=== PATIENT | male | born 1940 | race Caucasian/White ===

== ENCOUNTER 2016-12-02 16:57 | Inpatient (IN) | payer MEDICARE ==
[~2016-12-02] VITALS: Ht 177.8 cm; Wt 94.6 kg
[2016-12-02] MEDS ORDERED: KETOROLAC 30 MG/ML VIAL (J1885) As Ordered ONE (18:26)
[2016-12-02] MEDS ORDERED: ONDANSETRON 4MG/2ML VIAL (J2405) As Ordered ONE (18:26)
[2016-12-02 19:17] LABS: DIGOXIN LEVEL 0.2 NG/ML (0.5-2.0)
[2016-12-02] MEDS ORDERED: NORCO, ANEXSIA 5/325MG TABLET (HYDROcodone/ACETAMINOPHEN) PO PRN (21:30)
[2016-12-02] MEDS ORDERED: ACETAMINOPHEN TAB 650MG DOSE (2X325MG) PO PRN (21:30)
[2016-12-02] MEDS ORDERED: MORPHINE 4 MG/ML 1ML SYRINGE IV PRN ×2 (21:30→23:30)
[2016-12-02] MEDS ORDERED: FINA5TAB2 PO (22:17)
[2016-12-02] MEDS ORDERED: FERR325T PO (22:17)
[2016-12-02] MEDS ORDERED: ASPI325T PO (22:17)
[2016-12-02] MEDS ORDERED: FURO40TA2 PO (22:17)
[2016-12-02] MEDS ORDERED: DIGO0.12 PO (22:17)
[2016-12-02] MEDS ORDERED: VITA100066 PO (22:17)
[2016-12-02] MEDS ORDERED: FOLI1TAB2 PO (22:17)
[2016-12-02] MEDS ORDERED: VITA500T3 PO (22:17)
[2016-12-02] MEDS ORDERED: LOSA100T36 PO (22:17)
[2016-12-02] MEDS ORDERED: ATEN50TA2 PO (22:17)
--- NOTE | 2016-12-02 22:33 | EDDOCDS ---
Nurse's Notes [facility] Name: Teofilo Thorpe Age: 76 yrs Sex: Male : 1940 Arrival Date: 12/02/2016 Time: 16:57 Bed I3 / M3 Private MD: Andrés [facility] Diagnosis: Rectal abscess;Fever, unspecified;Abdominal and pelvic pain Presentation: 12/02 17:06 Presenting complaint: Patient states: diarrhea, vomiting, nausea and abdominal pain on rs3 and off for 2 weeks. Was seen at urgent care today. has high WBC. Sent here for further work up. Adult Sepsis Screening: The patient does not have new or worsening altered mentation. Patient's respiratory rate is less than 22. Systolic blood pressure is greater than 100. Patient has a qSOFA score of 0- Negative Sepsis Screen. Suicide/Homicide risk assessment- the patient denies having any suicidal and/or homicidal ideations and does not present with any other emotional, behavioral or mental health complaints. Status: Patient is not a family service worker or dependent. Transition of care: patient was not received from another setting of care. 17:06 Acuity: ROM Level 3 rs3 17:06 Method Of Arrival: Walkin/Carried/Asstd rs3 Triage Assessment: 17:10 General: Appears in no apparent distress. Pain: Location: abdomen. GI: Reports rs3 diarrhea, lower abdominal pain, upper abdominal pain, nausea, vomiting. Historical: - Allergies: no known allergies; - Home Meds: 1. atenolol 50 mg Oral tab 1 tab once daily 2. digoxin 125 mcg Oral tab 1 tab once daily 3. finasteride 5 mg oral tab 1 tab once daily 4. furosemide 40 mg Oral tab 1 tab once daily 5. losartan 100 mg oral tab 1 tab once daily - PMHx: Hypertension; congestive heart failure; - PSHx: bypass; Hernia repair; Cholecystectomy; - Social history: Smoking status: Patient states former smoker of tobacco. No barriers to communication noted, The patient speaks fluent Romanian. - Family history: Not pertinent. - : The pt / caregiver states he / she is not on anticoagulants. Home medication list is obtained from the patient. - Exposure Risk Screening:: None identified. Screenin:38 Screening information is obtained from the patient. Fall risk: No risks identified. kr3 Assistance ADL's: requires no assistance with activities of daily living. Abuse/DV Screen: The patient / caregiver reports he/she is: not in a situation that causes fear, pain or injury. Nutritional screening: No deficits noted. Advance Directives: Currently, there is no health care proxy. home support is adequate. Assessment: 18:37 General: Appears in no apparent distress, comfortable, Behavior is appropriate for age, kr3 cooperative. Neurological: No deficits noted. Respiratory: Respiratory effort is even, unlabored. GI: Abdomen is obese, Bowel sounds present X 4 quads. Abd is soft X 4 quads Abd is tender to palpation in left upper quadrant. Derm: Skin is normal. 19:40 General: Appears comfortable, Behavior is sleeping on stretcher with family at bedside. lf1 Respiratory: Respiratory effort is even, unlabored. GI: Abdomen is obese, Reports. GI: Bowel sounds present X 4 quads. Derm: Skin is normal. 21:58 Adult Sepsis Screening: The patient does not have new or worsening altered mentation. lf1 Patient's respiratory rate is less than 22. Systolic blood pressure is greater than 100. Patient has a qSOFA score of 0- Negative Sepsis Screen. General: Appears uncomfortable, Behavior is cooperative. Pain: Location: abdomen Pain currently is 6 out of 10 on a pain scale. Neurological: Level of Consciousness is awake, alert, Oriented to person, place, time. EENT: No deficits noted. Cardiovascular: Chest pain is denied. Respiratory: Respiratory effort is even, unlabored. GI: Abdomen is obese, Reports tolerance of food. Derm: Skin is normal. 22:26 General: Pt sitting comfortably in bed. No apparent distress. Pt ate part of a boxed ld5 lunch. Tolerated well. Will continue to monitor. Vital Signs: 16:59 BP 156 / 79; Pulse 111; Resp 18; Temp 98.7(O); Pulse Ox 96% ; Weight 104.33 kg (R); ct3 Height 5 ft. 10 in. (177.80 cm) (R); Pain 6/10; 19:29 BP 141 / 83; Pulse 97; Resp 18; Temp 96.9; Pulse Ox 97% ; Pain 8/10; ajs 21:58 BP 119 / 58 LA Supine; Pulse 91; Resp 18; Temp 98.0(O); Pulse Ox 96% on R/A; Pain 6/10; lf1 16:59 Body Mass Index 33.00 (104.33 kg, 177.80 cm) ct3 Vitals: 16:59 Log In Time: December 02, 2016 at 16:57. ct3 ED Course: 16:58 Patient visited by Christianne Trinidad PCA. ct3 16:58 Patient moved to Waiting ct3 16:59 [facility] is Private Physician. ct3 17:00 Patient moved to Pre RCE ct3 17:08 Triage Initiated rs3 17:25 Patient moved to Triage 3 ck1 17:34 Patient visited by Maria Guadalupe Jane PCA. jb5 17:51 Osmin Lindsay FNP is PHCP. ke 17:51 Patient visited by Osmin Lindsay FNP. ke 17:51 Patient visited by Osmin Lindsay FNP. ke 18:11 Patient moved to I3 / M3 jb5 18:22 Patient visited by Osmin Lindsay FNP. ke 18:26 Digoxin Level Sent. mlb1 18:26 Amylase Sent. mlb1 18:26 Lipase Sent. mlb1 18:27 Inserted saline lock: 20 gauge in left antecubital area and blood collected. The mlb1 patient tolerated the procedure well. Labs drawn. (by ED staff). Sent per order to lab. 18:38 The patient / caregiver is instructed regarding the plan of care and ED course. Patient luis has correct armband on for positive identification. Placed in gown. Bed in low position. Call light in reach. Side rails up X 1. 18:52 Patient visited by Osmin Lindsay FNP. ke 19:18 [facility] Payment Agreement was scanned into [employer] and attached to record. zo 19:23 Patient visited by Osmin Lindsay FNP. ke 19:29 Patient visited by Flaca Zuniga. ajs 19:40 IV solution is infusing as ordered. lf1 19:42 Patient visited by Nerissa Fulton RN. lf1 20:21 Patient visited by Osmin Lindsay FNP. ke 21:02 Patient visited by Osmin Lindsay FNP. ke 21:38 Patient visited by Osmin Lindsay FNP. ke 21:38 Tavares eDvlin MD is Hospitalizing Provider. ke 21:58 IV. lf1 22:27 No procedures done that require assistance. ld5 22:29 Patient visited by Bozena Reid RN. ld5 Administered Medications: 18:29 Drug: NS 0.9% 1000 ml [sodium chloride 0.9 % intravenous solution] Route: IV; Rate: kr3 bolus; Site: left antecubital; 22:32 Follow up: IV Status: Completed infusion; IV Intake: 1000ml ld5 18:29 Drug: Ondansetron 4 mg [ondansetron HCl 2 mg/mL intravenous solution (2 mL)] Route: kr3 IVP; Site: left antecubital; 18:31 Drug: ketorolac 30 mg [ketorolac 30 mg/mL (1 mL) injection solution (1 mL)] Route: IVP; kr3 Site: left antecubital; 22:32 Follow up: Response: Pain is decreased ld5 Intake: 21:58 PO: 240.00ml (Water); Total: 240.00ml. lf1 22:32 IV: 1000.00ml; Total: 1240.00ml. ld5 Order Results: Lab Order: Amylase; [facility] 12/02/16 18:12 Test: AMYLASE; Value: 123; Range: 25-115; Abnormal: Above high normal; Units: U/L; Status: F Lab Order: Lipase; [facility] 12/02/16 18:12 Test: LIPASE; Value: 240; Range: 73-393; Units: U/L; Status: F Lab Order: Urinalysis; [facility] 12/02/16 18:10 Test: APPEARANCE, URINE; Value: HAZY; Range: CLEAR; Status: F Test: COLOR, URINE; Value: YELLOW; Range: YELLOW; Status: F Test: PH,URINE; Value: 5.0; Range: 5.0-9.0; Units: UNITS; Status: F Test: SPECIFIC GRAVITY URINE AUTO; Value: 1.021; Range: 1.002-1.035; Status: F Test: PROTEIN, URINE AUTO; Value: 1+; Range: NEGATIVE; Abnormal: Above high normal; Units: mg/dL; Status: F Test: GLUCOSE, URINE (UA) AUTO; Value: NEGATIVE; Range: NEGATIVE; Units: mg/dL; Status: F Test: KETONE, URINE AUTO; Value: 1+; Range: NEGATIVE; Abnormal: Above high normal; Units: mg/dL; Status: F Test: UROBILINOGEN, URINE AUTO; Value: 0.2; Range: 0.0-2.0; Units: mg/dL; Status: F Test: BILIRUBIN, URINE AUTO; Value: NEGATIVE; Range: NEGATIVE; Status: F Test: NITRITE, URINE AUTO; Value: NEGATIVE; Range: NEGATIVE; Status: F Test: LEUKOCYTE ESTERASE, URINE AUTO; Value: NEGATIVE; Range: NEGATIVE; Status: F Test: BLOOD, URINE BLOOD; Value: NEGATIVE; Range: NEGATIVE; Status: F Test: WBC, URINE AUTO; Value: 5; Range: 0-3; Abnormal: Above high normal; Units: /HPF; Status: F Test: RBC, URINE AUTO; Value: 3; Range: 0-3; Units: /HPF; Status: F Test: BACTERIA, URINE AUTO; Value: NEGATIVE; Range: NEGATIVE; Status: F Test: SQUAMOUS EPITHELIAL CELL UR AU; Value: 0; Range: 0-6; Units: /HPF; Status: F Test: MUCUS, URINE; Value: SMALL; Range: NEGATIVE; Status: F Test: HYALINE CAST, URINE AUTO; Value: 2; Range: 0-1; Units: /LPF; Status: F Lab Order: Digoxin Level; SPEC'M 12/02/16 18:12 Test: DIGOXIN LEVEL; Value: 0.2; Range: 0.5-2.0; Abnormal: Below low normal; Units: NG/ML; Status: F Outcome: 21:41 Decision to Hospitalize by Provider. ke 22:27 Discharge Assessment: Patient awake, alert and oriented x 3. No cognitive and/or ld5 functional deficits noted. Patient verbalized understanding of disposition instructions. patient administered narcotics - no. The following High Risk Discharge criteria are identified: None. Admitted to Med/Surg accompanied by tech, family with patient, via stretcher, with chart. Condition: stable. CT Study completed. Property :Personal belongings accompany Pt. 22:32 Patient left the ED. ld5 Signatures: Osmin Lindsay, EMERGENCY DISPATCHER EMERGENCY DISPATCHER David Medellin RN RN mlb1 Sunshine PatricioRN RN ck1 Raias Ellis,RN RN kr3 Maria Guadalupe Jane, MEDICINE AND HEALTH SERVICE MANAGER MEDICINE AND HEALTH SERVICE MANAGER jb5 Cielo Waterman Lisa,RN RN lf1 Ama Bateman RN RN rs3 Bozena Reid RN RN ld5 Christianne Trinidad, MEDICINE AND HEALTH SERVICE MANAGER MEDICINE AND HEALTH SERVICE MANAGER ct3 Flaca Zuniga Corrections: (The following items were deleted from the chart) 22:29 22:26 General: [id number] ld5 MTDD
--- NOTE | 2016-12-02 22:33 | EDDOCDS ---
Physician Documentation [facility] Name: Teofilo Thorpe Age: 76 yrs Sex: Male : 1940 Arrival Date: 12/02/2016 Time: 16:57 Bed I3 / M3 Private MD: Andrés [facility] Disposition: 12/02/16 21:41 Hospitalization ordered by Tavares Devlin for Inpatient Admission. Preliminary diagnosis are Rectal abscess, Fever, unspecified, Abdominal and pelvic pain. - Bed requested for [facility] ([facility]). - Status is Inpatient Admission. ld5 - Condition is Stable. - Problem is an ongoing problem. - Symptoms are unchanged. Historical: - Allergies: no known allergies; - Home Meds: 1. atenolol 50 mg Oral tab 1 tab once daily 2. digoxin 125 mcg Oral tab 1 tab once daily 3. finasteride 5 mg oral tab 1 tab once daily 4. furosemide 40 mg Oral tab 1 tab once daily 5. losartan 100 mg oral tab 1 tab once daily - PMHx: Hypertension; congestive heart failure; - PSHx: bypass; Hernia repair; Cholecystectomy; - Social history: Smoking status: Patient states former smoker of tobacco. No barriers to communication noted, The patient speaks fluent Chinese. - Family history: Not pertinent. - : The pt / caregiver states he / she is not on anticoagulants. Home medication list is obtained from the patient. - Exposure Risk Screening:: None identified. Vital Signs: 12/02 16:59 BP 156 / 79; Pulse 111; Resp 18; Temp 98.7(O); Pulse Ox 96% ; Weight 104.33 kg / 230.01 ct3 lbs (R); Height 5 ft. 10 in. (177.80 cm) (R); Pain 6/10; 19:29 BP 141 / 83; Pulse 97; Resp 18; Temp 96.9; Pulse Ox 97% ; Pain 8/10; ajs 21:58 BP 119 / 58 LA Supine; Pulse 91; Resp 18; Temp 98.0(O); Pulse Ox 96% on R/A; Pain 6/10; lf1 16:59 Body Mass Index 33.00 (104.33 kg, 177.80 cm) ct3 MDM: 18:07 NS 0.9% 1000 ml IV at bolus once ordered. ke 18:07 Ondansetron 4 mg IVP once ordered. ke 18:07 ketorolac 30 mg IVP once ordered. ke 18:07 IV Saline Lock ordered. ke 18:07 Undress patient appropriately for examination ordered. ke 18:08 Amylase Ordered. EDMS 18:08 Lipase Ordered. EDMS 18:08 Urinalysis Ordered. EDMS 18:08 Digoxin Level Ordered. EDMS 18:08 Urine Culture Ordered. EDMS 18:08 CT ABD & PELVIS: No Contrast Ordered. EDMS 18:08 NOTHING BY MOUTH+DIET ordered. EDMS 18:55 Financial registration complete. zo 19:04 Urinalysis Reviewed. ke 19:18 [facility] Payment Agreement was scanned into [employer] and attached to record. zo 21:27 Admission / Observation Status ordered. EDMS 21:27 REGULAR DIET ordered. EDMS 21:29 ABCESS DRAIN (NEEDLE PLACE) US Ordered. EDMS 21:29 ABCESS DRAIN (NEEDLE PLACE) US Ordered. EDMS 21:53 BED REQUEST+ADM ordered. EDMS 22:03 CALPROTECTIN STOOL Ordered. EDMS 22:05 GASTROINTESTINAL (GI) PANEL Ordered. EDMS Administered Medications: 18:29 Drug: NS 0.9% 1000 ml [sodium chloride 0.9 % intravenous solution] Route: IV; Rate: kr3 bolus; Site: left antecubital; 22:32 Follow up: IV Status: Completed infusion; IV Intake: 1000ml ld5 18:29 Drug: Ondansetron 4 mg [ondansetron HCl 2 mg/mL intravenous solution (2 mL)] Route: kr3 IVP; Site: left antecubital; 18:31 Drug: ketorolac 30 mg [ketorolac 30 mg/mL (1 mL) injection solution (1 mL)] Route: IVP; kr3 Site: left antecubital; 22:32 Follow up: Response: Pain is decreased ld5 Signatures: Dispatcher [employer] EDMS Farnaz Espitia RN RN Osmin Vitale, DRY HEAT ROOM ATTENDANT DRY HEAT ROOM ATTENDANT Cielo Dhillon RosemaryRN RN rs3 Bozena Reid RN RN ld5 Raisa Ellis RN kr3 The chart was reviewed and I authenticate all verbal orders and agree with the evaluation and treatment provided.Corrections: (The following items were deleted from the chart) 22:05 22:03 GASTROINTESTINAL (GI) PANEL ordered. EDMS EDMS Attachments: 19:18 [facility] Payment Agreement zo MTDD
[2016-12-02 22:38] VITALS: BP 138/74
[2016-12-02] MEDS ORDERED: LOSARTAN 50 MG TAB PO ONE (23:03)
[2016-12-02] MEDS ORDERED: ATENOLOL 50 MG TAB PO ONE (23:03)
[2016-12-02] MEDS ORDERED: FUROSEMIDE 40 MG TAB PO ONE (23:03)
[2016-12-02] MEDS: PIPERACILLIN/TAZOBACTAM SOD 3.375 GM in D5W MINI-BAG PLUS 50 ML IV SCH (23:28)
[2016-12-02] MEDS: LR 1,000 ML IV SCH (23:28)
[2016-12-02] MEDS ORDERED: MORPHINE 2 MG/ML 1ML SYRINGE IV PRN (23:30)
[2016-12-03 06:00] VITALS: BP 147/85
[2016-12-03] MEDS: LR 1,000 ML IV SCH ×3 (06:08→20:02)
[2016-12-03] MEDS: PIPERACILLIN/TAZOBACTAM SOD 3.375 GM in D5W MINI-BAG PLUS 50 ML IV SCH ×4 (06:08→23:44)
--- NOTE | 2016-12-03 07:37 | HPE ---
DATE OF ADMISSION: 12/02/2016 CHIEF COMPLAINT: Diarrhea, nausea and vomiting. HISTORY OF PRESENT ILLNESS: Mr. Thorpe is a 76-year-old gentleman who complains of a 2-week history of watery, nonbloody diarrhea anywhere from 6-10 times a day for the past 2 weeks. No antecedent causes that the patient could tell. This started all of a sudden and has persisted for the past 2 weeks. Early on was also having some nausea or vomiting. Does not really notice any high-grade fever or chills. This kind of resolved over the course of the week but returned last night prompting him to be concerned. Thus, he presented to the Urgent Care. Today, labs were drawn. He was noted to have a white cell count of 18,000. Thus, he was sent to the emergency room for further evaluation. The emergency room did a noncontrast CT, which shows possibility of perirectal abscess. Thus, I was called in to evaluate the patient. 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 He does report episodes of diarrhea, mostly watery. He has chronic iron deficiency anemia, but never had episodes of nausea or vomiting. He denies any ongoing weight loss. Last colonoscopy was back in 2010. No significant history for inflammatory bowel disease. No sick contacts. No recent overseas travel. ALLERGIES: NO KNOWN DRUG ALLERGIES. HOME MEDICATIONS: - atenolol 50 mg once daily - digoxin 125 mcg once daily - finasteride 5 mg once daily - furosemide 40 mg once daily - losartan 100 mg once daily PAST MEDICAL HISTORY: 1. Hypertension. 2. Congestive heart failure. 3. History of myocardial infarction ([place]). 4. Benign prostatic hyperplasia. PAST SURGICAL HISTORY: 1. Cardiac bypass. 2. Hernia repair. 3. Cholecystectomy. SOCIAL HISTORY: Patient is a former smoker. Denies ongoing smoking. Minimal and occasional alcohol intake. No recreational drug use. Exposure risk screening none identified. REVIEW OF SYSTEMS: As mentioned, has ongoing symptoms for the past week. No fevers or chills reported. No ongoing weight loss. Reports some associated nausea. Denies any ongoing chest pains. Denies shortness of breath. Suspected to have sleep apnea. No further testing noted. Snores loud. Gastrointestinal symptoms enumerated in the history of present illness (HPI). Has some urinary dribbling. Denies dysuria, hematuria, nocturia. Patient denies any polydipsia, polyphagia or polyuria. Denies diabetes. Denies thyroid problems. Denies any bleeding or clotting disorder. Denies any severe psychiatric impairment. PHYSICAL EXAMINATION: On arrival to the emergency department (ED), vitals shows blood pressure of 156/79, pulse rate of 111, respiratory rate of 18, temperature of 98.7, pulse oximetry 96% on room air. Weight of 104 kg, height of 177 cm, body mass index (BMI) of 33. Pain as 6/10 on arrival. Patient is seen laying in bed, appears fairly comfortable. No acute distress. He is pleasant and cooperative. Daughter is at the bedside with him. Skin is warm, dry. Normocephalic, atraumatic. Mildly pale palpebral conjunctivae. Anicteric sclerae. Lips appear dry. Neck is short but supple. No thyromegaly. No chest wall abnormalities. Lungs sounds are clear to auscultation bilaterally. No wheezing appreciated. Heart rate and rhythm are regular with no murmurs. Abdomen is moderately obese, round, but soft, nondistended, nontender on palpation. Rectal examination shows no gross induration, swelling, minimal tenderness left posterior area but no fluctuance induration noted externally. Digital rectal exam, very minimal tenderness over that side. No fullness appreciated. LABORATORY DATA: White cell count drawn earlier, white count of 18.9 thousand, hemoglobin 14, hematocrit 43.7, platelet count 301. Neutrophils are 88%. Chemistry: Sodium 145, potassium 3.5, chloride is 107, CO2 of 26, BUN of 9, creatinine is 1.04, glucose of 138, calcium of 8.3, alkaline phosphatase 213, amylase 123, lipase 240. Urinalysis: Fairly normal, urine WBC of 5, urine RBC of 3. Digoxin level 0.2. Chest x-ray done, nonspecific bowel gas of abdominal x-ray, cannot exclude acute on chronic infrahilar opacities. CT of the abdomen and pelvis was done. This was unfortunately noncontrast. No official read at this time. This was communicated to the physician diet assistant (PA) in the emergency department of possible 4.5 cm left perirectal abscess, some chronic appearing kidney stranding bilaterally. IMPRESSION: 1. Diarrhea. Patient reports history with insensitivity or celiac sprue, possibly just some exacerbation of this though. Nausea and vomiting is not completely explained by this. 2. Findings of deep perirectal abscess, possibly supralevator abscess. On my examination could not feel the area of the fluctuance. We will get radiology to do a percutaneous drainage of this. Most likely will be done transgluteal. I explained to the patient the procedure. We will also get gastrointestinal (GI) panel to look for any possible infection. Patient does not look septic despite the high white count. No fevers. No dyspnea, tachypnea noted. We will start him on Zosyn for empiric therapy of the abscess. For now, if he improves, probably this is just from the abscess. Otherwise, may need further workup.
[2016-12-03 08:00] VITALS: BP 101/64
--- NOTE | 2016-12-03 08:20 | REP ---
Clinical: Abdominal pain. Comparison: None. Findings: Lung bases demonstrate minimal chronic changes. Splenomegaly cannot be excluded. Liver, pancreas, and bilateral adrenal glands are normal for noncontrast examination. Kidneys demonstrate moderate perinephric stranding along with bilateral cysts - the largest of which is noted in the upper pole left kidney measuring approximately 8 cm diameter. No hydroureteronephrosis, intrarenal or obstructing ureteral calculi are identified. The enteric system is without obstruction or acute inflammatory process and a normal terminal ileum and appendix are identified in the right lower quadrant. Scattered colonic and sigmoid diverticulosis noted without acute diverticulitis. Pelvis demonstrates normal bladder and age appropriate prostate/seminal vesicles. There is a 4.6 cm left perirectal soft tissue lesion with subtle adjacent inflammatory fat stranding (images 145 - 165). Lesion may reflect mass versus infection and clinical correlation is recommended. No pelvic fluid or ascites. No intraperitoneal or retroperitoneal adenopathy. No free air. Atherosclerotic changes of the aorta and branch vessels noted without aneurysm. Surrounding musculoskeletal structures demonstrate degenerative changes without focal osseous abnormality. Impression: 1. Perinephric stranding and bilateral renal cysts. Correlation with urinalysis is recommended to exclude pyelonephritis. 2. 4.6 cm left perirectal soft tissue lesion as described above. Differential diagnosis includes solid mass versus infectious process. Signed by Marshall Hatch MD 12/03/2016 08:11 A
[2016-12-03] MEDS ORDERED: ONDANSETRON 4MG/2ML VIAL (J2405) As Ordered ONE (09:39)
[2016-12-03] MEDS: ONDANSETRON 4MG/2ML VIAL (J2405) IV PRN ×2 (09:42→22:31)
[2016-12-03] MEDS: DIGOXIN 0.125 MG TAB PO SCH (09:43)
[2016-12-03] MEDS: FINASTERIDE 5 MG TAB PO SCH (09:43)
[2016-12-03] MEDS: NORCO, ANEXSIA 5/325MG TABLET (HYDROcodone/ACETAMINOPHEN) PO PRN ×2 (10:39→20:01)
[2016-12-03] MEDS ORDERED: LIDOCAINE 1% MDV 20ML VIAL As Ordered ONE (12:14)
[2016-12-03 14:00] VITALS: BP 93/64
[2016-12-03 15:20] VITALS: BP 135/72
--- NOTE | 2016-12-03 18:26 | REP ---
ULTRASOUND GUIDED ABSCESS DRAINAGE: The patient was referred for ultrasound guided drainage of left perirectal abscess. Informed consent was obtained. Under sterile conditions and after satisfactory administration of local anesthesia, using ultrasound guidance, an #8-Sammarinese pigtail drainage catheter is placed into the abscess. A total of 42 mL of brown pus was aspirated. Pigtail was formed and the catheter was sutured at the skin entrance site and dressing applied. Fluid was sent for gram stain and culture. There were no immediate complications. Signed by Simone Styles MD 12/03/2016 06:33 P
[2016-12-03 22:00] VITALS: BP 125/65
[2016-12-04] MEDS: LR 1,000 ML IV SCH ×3 (05:13→21:34)
[2016-12-04] MEDS: PIPERACILLIN/TAZOBACTAM SOD 3.375 GM in D5W MINI-BAG PLUS 50 ML IV SCH ×4 (05:13→23:36)
[2016-12-04 06:00] VITALS: BP 118/68
[2016-12-04 06:06] LABS: BASO % 0.2 % (0.0-1.0); EOS # 0.1 K/mm3 (0.0-0.50); EOS % 0.9 % (0.0-3.0); LARGE UNSTAINED CELL # 0.2 K/mm3 (0.0-0.4); LARGE UNSTAINED CELL % 1.9 % (0.0-4.0); LYMPH # 0.8 K/mm3 (1.5-4.5); LYMPH % 5.9 % (24.0-44.0); MEAN CORPUSCULAR HEMOGLOBIN 26.1 pg (27.0-33.0); MEAN CORPUSCULAR HGB CONC 32.6 g/dl (32.0-36.5); MEAN CORPUSCULAR VOLUME 80.1 fl (80.0-96.0); MONO # 0.7 K/mm3 (0.0-0.8); MONO % 6.7 % (0.0-5.0); NEUTROPHILS # 8.9 K/mm3 (1.8-7.7); NEUTROPHILS % 84.4 % (36.0-66.0); PLATELET COUNT, AUTOMATED 330 k/mm3 (150-450); RED CELL DISTRIBUTION WIDTH 13.7 % (11.5-14.5); WHITE BLOOD COUNT 10.6 K/mm3 (4.0-10.0)
[2016-12-04 06:14] LABS: CALCIUM LEVEL 7.2 MG/DL (8.8-10.2); CARBON DIOXIDE LEVEL 25 MEQ/L (21-32); CHLORIDE LEVEL 111 MEQ/L (98-107); CREATININE FOR GFR 1.01 MG/DL (0.70-1.30); GLOMERULAR FILTRATION RATE > 60.0 (>42); GLUCOSE, FASTING 121 MG/DL (83-110)
[2016-12-04 06:20] LABS: ANION GAP 11 MEQ/L (8-16); BLOOD UREA NITROGEN 52 MG/DL (7-18); POTASSIUM SERUM 2.9 MEQ/L (3.5-5.1); SODIUM LEVEL 147 MEQ/L (136-145)
[2016-12-04] MEDS ORDERED: POTASSIUM CHLORIDE 10 MEQ SR TABLET PO ONE ×2 (06:30→12:00)
[2016-12-04] MEDS: ONDANSETRON 4MG/2ML VIAL (J2405) IV PRN ×2 (09:22→17:03)
[2016-12-04] MEDS: FINASTERIDE 5 MG TAB PO SCH (09:24)
[2016-12-04] MEDS: DIGOXIN 0.125 MG TAB PO SCH (09:24)
[2016-12-04 14:00] VITALS: BP 173/78
[2016-12-04] MEDS ORDERED: LOPERAMIDE 2 MG CAP PO PRN (16:30)
[2016-12-04] MEDS ORDERED: LOPERAMIDE 2 MG CAP PO ONE (16:30)
[2016-12-04 22:00] VITALS: BP 118/67
--- NOTE | 2016-12-04 23:33 | EDDOCDS ---
Physician Documentation [facility] Name: Teofilo Thorpe Age: 76 yrs Sex: Male : 1940 Arrival Date: 12/02/2016 Time: 16:57 Bed I3 / M3 Private MD: Andrés [facility] Disposition: 12/02/16 21:41 Hospitalization ordered by Tavares Devlin for Inpatient Admission. Preliminary diagnosis are Rectal abscess, Fever, unspecified, Abdominal and pelvic pain. - Bed requested for 4 [facility] (Formerly 3 [facility]). - Status is Inpatient Admission. ld5 - Condition is Stable. - Problem is an ongoing problem. - Symptoms are unchanged. Historical: - Allergies: no known allergies; - Home Meds: 1. atenolol 50 mg Oral tab 1 tab once daily 2. digoxin 125 mcg Oral tab 1 tab once daily 3. finasteride 5 mg oral tab 1 tab once daily 4. furosemide 40 mg Oral tab 1 tab once daily 5. losartan 100 mg oral tab 1 tab once daily - PMHx: Hypertension; congestive heart failure; - PSHx: bypass; Hernia repair; Cholecystectomy; - Social history: Smoking status: Patient states former smoker of tobacco. No barriers to communication noted, The patient speaks fluent Sudanese. - Family history: Not pertinent. - : The pt / caregiver states he / she is not on anticoagulants. Home medication list is obtained from the patient. - Exposure Risk Screening:: None identified. Vital Signs: 12/02 16:59 BP 156 / 79; Pulse 111; Resp 18; Temp 98.7(O); Pulse Ox 96% ; Weight 104.33 kg / 230.01 ct3 lbs (R); Height 5 ft. 10 in. (177.80 cm) (R); Pain 6/10; 19:29 BP 141 / 83; Pulse 97; Resp 18; Temp 96.9; Pulse Ox 97% ; Pain 8/10; ajs 21:58 BP 119 / 58 LA Supine; Pulse 91; Resp 18; Temp 98.0(O); Pulse Ox 96% on R/A; Pain 6/10; lf1 16:59 Body Mass Index 33.00 (104.33 kg, 177.80 cm) ct3 MDM: 18:07 NS 0.9% 1000 ml IV at bolus once ordered. ke 18:07 Ondansetron 4 mg IVP once ordered. ke 18:07 ketorolac 30 mg IVP once ordered. ke 18:07 IV Saline Lock ordered. ke 18:07 Undress patient appropriately for examination ordered. ke 18:08 Amylase Ordered. EDMS 18:08 Lipase Ordered. EDMS 18:08 Urinalysis Ordered. EDMS 18:08 Digoxin Level Ordered. EDMS 18:08 Urine Culture Ordered. EDMS 18:08 CT ABD & PELVIS: No Contrast Ordered. EDMS 18:08 NOTHING BY MOUTH+DIET ordered. EDMS 18:55 Financial registration complete. zo 19:04 Urinalysis Reviewed. ke 19:18 [place] [place] Agreement was scanned into [employer] and attached to record. zo 21:27 Admission / Observation Status ordered. EDMS 21:27 REGULAR DIET ordered. EDMS 21:29 ABCESS DRAIN (NEEDLE PLACE) US Ordered. EDMS 21:29 ABCESS DRAIN (NEEDLE PLACE) US Ordered. EDMS 21:53 BED REQUEST+ADM ordered. EDMS 22:03 CALPROTECTIN STOOL Ordered. EDMS 22:05 GASTROINTESTINAL (GI) PANEL Ordered. EDMS 02 12:00 T-Sheet-- Draft Copy was scanned into [employer] and attached to record. gb 15:06 Radiology Report was scanned into [employer] and attached to record. gb Administered Medications: 12/02 18:29 Drug: NS 0.9% 1000 ml [sodium chloride 0.9 % intravenous solution] Route: IV; Rate: kr3 bolus; Site: left antecubital; 22:32 Follow up: IV Status: Completed infusion; IV Intake: 1000ml ld5 18:29 Drug: Ondansetron 4 mg [ondansetron HCl 2 mg/mL intravenous solution (2 mL)] Route: kr3 IVP; Site: left antecubital; 18:31 Drug: ketorolac 30 mg [ketorolac 30 mg/mL (1 mL) injection solution (1 mL)] Route: IVP; kr3 Site: left antecubital; 22:32 Follow up: Response: Pain is decreased ld5 Signatures: Dispatcher [employer] EDMS Farnaz Espitia RN RN Radha Astudillo, Reg Reg gb Osmin Lindsay, CHIEF I DISPATCHER CHIEF I DISPATCHER Cielo Dhillon RosemaryRN RN rs3 Bozena Reid RN RN ld5 Raisa Ellis RN kr3 The chart was reviewed and I authenticate all verbal orders and agree with the evaluation and treatment provided.Corrections: (The following items were deleted from the chart) 22:05 22:03 GASTROINTESTINAL (GI) PANEL ordered. EDMS EDMS Attachments: 19:18 [facility] Payment Agreement zo 12/03 12:00 T-Sheet-- Draft Copy gb Chart Complete MTDD
--- NOTE | 2016-12-04 23:33 | EDDOCDS ---
Nurse's Notes [facility] Name: Teofilo Thorpe Age: 76 yrs Sex: Male : 1940 Arrival Date: 12/02/2016 Time: 16:57 Bed I3 / M3 Private MD: Andrés [facility] Diagnosis: Rectal abscess;Fever, unspecified;Abdominal and pelvic pain Presentation: 12/02 17:06 Presenting complaint: Patient states: diarrhea, vomiting, nausea and abdominal pain on rs3 and off for 2 weeks. Was seen at urgent care today. has high WBC. Sent here for further work up. Adult Sepsis Screening: The patient does not have new or worsening altered mentation. Patient's respiratory rate is less than 22. Systolic blood pressure is greater than 100. Patient has a qSOFA score of 0- Negative Sepsis Screen. Suicide/Homicide risk assessment- the patient denies having any suicidal and/or homicidal ideations and does not present with any other emotional, behavioral or mental health complaints. Status: Patient is not a creative services coordinator or dependent. Transition of care: patient was not received from another setting of care. 17:06 Acuity: ROM Level 3 rs3 17:06 Method Of Arrival: Walkin/Carried/Asstd rs3 Triage Assessment: 17:10 General: Appears in no apparent distress. Pain: Location: abdomen. GI: Reports rs3 diarrhea, lower abdominal pain, upper abdominal pain, nausea, vomiting. Historical: - Allergies: no known allergies; - Home Meds: 1. atenolol 50 mg Oral tab 1 tab once daily 2. digoxin 125 mcg Oral tab 1 tab once daily 3. finasteride 5 mg oral tab 1 tab once daily 4. furosemide 40 mg Oral tab 1 tab once daily 5. losartan 100 mg oral tab 1 tab once daily - PMHx: Hypertension; congestive heart failure; - PSHx: bypass; Hernia repair; Cholecystectomy; - Social history: Smoking status: Patient states former smoker of tobacco. No barriers to communication noted, The patient speaks fluent Namibian. - Family history: Not pertinent. - : The pt / caregiver states he / she is not on anticoagulants. Home medication list is obtained from the patient. - Exposure Risk Screening:: None identified. Screenin:38 Screening information is obtained from the patient. Fall risk: No risks identified. kr3 Assistance ADL's: requires no assistance with activities of daily living. Abuse/DV Screen: The patient / caregiver reports he/she is: not in a situation that causes fear, pain or injury. Nutritional screening: No deficits noted. Advance Directives: Currently, there is no health care proxy. home support is adequate. Assessment: 18:37 General: Appears in no apparent distress, comfortable, Behavior is appropriate for age, kr3 cooperative. Neurological: No deficits noted. Respiratory: Respiratory effort is even, unlabored. GI: Abdomen is obese, Bowel sounds present X 4 quads. Abd is soft X 4 quads Abd is tender to palpation in left upper quadrant. Derm: Skin is normal. 19:40 General: Appears comfortable, Behavior is sleeping on stretcher with family at bedside. lf1 Respiratory: Respiratory effort is even, unlabored. GI: Abdomen is obese, Reports. GI: Bowel sounds present X 4 quads. Derm: Skin is normal. 21:58 Adult Sepsis Screening: The patient does not have new or worsening altered mentation. lf1 Patient's respiratory rate is less than 22. Systolic blood pressure is greater than 100. Patient has a qSOFA score of 0- Negative Sepsis Screen. General: Appears uncomfortable, Behavior is cooperative. Pain: Location: abdomen Pain currently is 6 out of 10 on a pain scale. Neurological: Level of Consciousness is awake, alert, Oriented to person, place, time. EENT: No deficits noted. Cardiovascular: Chest pain is denied. Respiratory: Respiratory effort is even, unlabored. GI: Abdomen is obese, Reports tolerance of food. Derm: Skin is normal. 22:26 General: Pt sitting comfortably in bed. No apparent distress. Pt ate part of a boxed ld5 lunch. Tolerated well. Will continue to monitor. Vital Signs: 16:59 BP 156 / 79; Pulse 111; Resp 18; Temp 98.7(O); Pulse Ox 96% ; Weight 104.33 kg (R); ct3 Height 5 ft. 10 in. (177.80 cm) (R); Pain 6/10; 19:29 BP 141 / 83; Pulse 97; Resp 18; Temp 96.9; Pulse Ox 97% ; Pain 8/10; ajs 21:58 BP 119 / 58 LA Supine; Pulse 91; Resp 18; Temp 98.0(O); Pulse Ox 96% on R/A; Pain 6/10; lf1 16:59 Body Mass Index 33.00 (104.33 kg, 177.80 cm) ct3 Vitals: 16:59 Log In Time: December 02, 2016 at 16:57. ct3 ED Course: 16:58 Patient visited by Chirstianne Trinidad PCA. ct3 16:58 Patient moved to Waiting ct3 16:59 [facility] is Private Physician. ct3 17:00 Patient moved to Pre RCE ct3 17:08 Triage Initiated rs3 17:25 Patient moved to Triage 3 ck1 17:34 Patient visited by Maria Guadalupe Jane PCA. jb5 17:51 Osmin Lindsay FNP is PHCP. ke 17:51 Patient visited by Osmin Lindsay FNP. ke 17:51 Patient visited by Osmin Lindsay FNP. ke 18:11 Patient moved to I3 / M3 jb5 18:22 Patient visited by Osmin Lindsay FNP. ke 18:26 Digoxin Level Sent. mlb1 18:26 Amylase Sent. mlb1 18:26 Lipase Sent. mlb1 18:27 Inserted saline lock: 20 gauge in left antecubital area and blood collected. The mlb1 patient tolerated the procedure well. Labs drawn. (by ED staff). Sent per order to lab. 18:38 The patient / caregiver is instructed regarding the plan of care and ED course. Patient luis has correct armband on for positive identification. Placed in gown. Bed in low position. Call light in reach. Side rails up X 1. 18:52 Patient visited by Osmin Lindsay FNP. ke 19:18 [facility] [place] Agreement was scanned into [employer] and attached to record. zo 19:23 Patient visited by Osmin Lindsay FNP. ke 19:29 Patient visited by Flaca Zuniga. ajs 19:40 IV solution is infusing as ordered. lf1 19:42 Patient visited by Nerissa Fulton RN. lf1 20:21 Patient visited by Osmin Lindsay FNP. ke 21:02 Patient visited by Osmin Lindsay FNP. ke 21:38 Patient visited by Osmin Lindsay FNP. ke 21:38 Tavares Devlin MD is Hospitalizing Provider. ke 21:58 IV. lf1 22:27 No procedures done that require assistance. ld5 22:29 Patient visited by Bozena Reid RN. ld5 12/03 12:00 T-Sheet-- Draft Copy was scanned into [employer] and attached to record. gb 15:06 Radiology Report was scanned into [employer] and attached to record. gb Administered Medications: 12/02 18:29 Drug: NS 0.9% 1000 ml [sodium chloride 0.9 % intravenous solution] Route: IV; Rate: kr3 bolus; Site: left antecubital; 22:32 Follow up: IV Status: Completed infusion; IV Intake: 1000ml ld5 18:29 Drug: Ondansetron 4 mg [ondansetron HCl 2 mg/mL intravenous solution (2 mL)] Route: kr3 IVP; Site: left antecubital; 18:31 Drug: ketorolac 30 mg [ketorolac 30 mg/mL (1 mL) injection solution (1 mL)] Route: IVP; kr3 Site: left antecubital; 22:32 Follow up: Response: Pain is decreased ld5 Intake: 21:58 PO: 240.00ml (Water); Total: 240.00ml. lf1 22:32 IV: 1000.00ml; Total: 1240.00ml. ld5 Order Results: Lab Order: Amylase; SPEC' 12/02/16 18:12 Test: AMYLASE; Value: 123; Range: 25-115; Abnormal: Above high normal; Units: U/L; Status: F Lab Order: Lipase; [facility]' 12/02/16 18:12 Test: LIPASE; Value: 240; Range: 73-393; Units: U/L; Status: F Lab Order: Urinalysis; SPEC' 12/02/16 18:10 Test: APPEARANCE, URINE; Value: HAZY; Range: CLEAR; Status: F Test: COLOR, URINE; Value: YELLOW; Range: YELLOW; Status: F Test: PH,URINE; Value: 5.0; Range: 5.0-9.0; Units: UNITS; Status: F Test: SPECIFIC GRAVITY URINE AUTO; Value: 1.021; Range: 1.002-1.035; Status: F Test: PROTEIN, URINE AUTO; Value: 1+; Range: NEGATIVE; Abnormal: Above high normal; Units: mg/dL; Status: F Test: GLUCOSE, URINE (UA) AUTO; Value: NEGATIVE; Range: NEGATIVE; Units: mg/dL; Status: F Test: KETONE, URINE AUTO; Value: 1+; Range: NEGATIVE; Abnormal: Above high normal; Units: mg/dL; Status: F Test: UROBILINOGEN, URINE AUTO; Value: 0.2; Range: 0.0-2.0; Units: mg/dL; Status: F Test: BILIRUBIN, URINE AUTO; Value: NEGATIVE; Range: NEGATIVE; Status: F Test: NITRITE, URINE AUTO; Value: NEGATIVE; Range: NEGATIVE; Status: F Test: LEUKOCYTE ESTERASE, URINE AUTO; Value: NEGATIVE; Range: NEGATIVE; Status: F Test: BLOOD, URINE BLOOD; Value: NEGATIVE; Range: NEGATIVE; Status: F Test: WBC, URINE AUTO; Value: 5; Range: 0-3; Abnormal: Above high normal; Units: /HPF; Status: F Test: RBC, URINE AUTO; Value: 3; Range: 0-3; Units: /HPF; Status: F Test: BACTERIA, URINE AUTO; Value: NEGATIVE; Range: NEGATIVE; Status: F Test: SQUAMOUS EPITHELIAL CELL UR AU; Value: 0; Range: 0-6; Units: /HPF; Status: F Test: MUCUS, URINE; Value: SMALL; Range: NEGATIVE; Status: F Test: HYALINE CAST, URINE AUTO; Value: 2; Range: 0-1; Units: /LPF; Status: F Lab Order: Digoxin Level; SPEC'M 12/02/16 18:12 Test: DIGOXIN LEVEL; Value: 0.2; Range: 0.5-2.0; Abnormal: Below low normal; Units: NG/ML; Status: F Outcome: 21:41 Decision to Hospitalize by Provider. ke 22:27 Discharge Assessment: Patient awake, alert and oriented x 3. No cognitive and/or ld5 functional deficits noted. Patient verbalized understanding of disposition instructions. patient administered narcotics - no. The following High Risk Discharge criteria are identified: None. Admitted to Med/Surg accompanied by tech, family with patient, via stretcher, with chart. Condition: stable. CT Study completed. Property :Personal belongings accompany Pt. 22:32 Patient left the ED. ld5 Signatures: Radha Manzano, Reg Reg Osmin Khan, SUPERVISOR BLOOMING MILL SUPERVISOR BLOOMING MILL David Medellin RN RN mlb1 Sintia,Sunshine,RN RN ck1 Raisa Ellis,RN RN kr3 Maria Guadalupe Jane, VP ACCOUNT DIRECTOR VP ACCOUNT DIRECTOR jb5 Cielo Waterman Lisa,RN RN lf1 Bhavana,Ama,RN RN rs3 Bozena Reid,RN RN ld5 Christianne Trinidad, VP ACCOUNT DIRECTOR VP ACCOUNT DIRECTOR ct3 Flaca Zuniga Corrections: (The following items were deleted from the chart) 22:29 22:26 General: ld5 ld5 Chart Complete MTDD
--- NOTE | 2016-12-04 23:33 | EDDOCDS ---
Physician Documentation [facility] Name: Teofilo Thorpe Age: 76 yrs Sex: Male : 1940 Arrival Date: 12/02/2016 Time: 16:57 Bed I3 / M3 Private MD: Andrés [facility] Disposition: 12/02/16 21:41 Hospitalization ordered by Tavares Devlin for Inpatient Admission. Preliminary diagnosis are Rectal abscess, Fever, unspecified, Abdominal and pelvic pain. - Bed requested for 4 [facility] (Formerly 3 [facility]). - Status is Inpatient Admission. ld5 - Condition is Stable. - Problem is an ongoing problem. - Symptoms are unchanged. Historical: - Allergies: no known allergies; - Home Meds: 1. atenolol 50 mg Oral tab 1 tab once daily 2. digoxin 125 mcg Oral tab 1 tab once daily 3. finasteride 5 mg oral tab 1 tab once daily 4. furosemide 40 mg Oral tab 1 tab once daily 5. losartan 100 mg oral tab 1 tab once daily - PMHx: Hypertension; congestive heart failure; - PSHx: bypass; Hernia repair; Cholecystectomy; - Social history: Smoking status: Patient states former smoker of tobacco. No barriers to communication noted, The patient speaks fluent Burmese. - Family history: Not pertinent. - : The pt / caregiver states he / she is not on anticoagulants. Home medication list is obtained from the patient. - Exposure Risk Screening:: None identified. Vital Signs: 12/02 16:59 BP 156 / 79; Pulse 111; Resp 18; Temp 98.7(O); Pulse Ox 96% ; Weight 104.33 kg / 230.01 ct3 lbs (R); Height 5 ft. 10 in. (177.80 cm) (R); Pain 6/10; 19:29 BP 141 / 83; Pulse 97; Resp 18; Temp 96.9; Pulse Ox 97% ; Pain 8/10; ajs 21:58 BP 119 / 58 LA Supine; Pulse 91; Resp 18; Temp 98.0(O); Pulse Ox 96% on R/A; Pain 6/10; lf1 16:59 Body Mass Index 33.00 (104.33 kg, 177.80 cm) ct3 MDM: 18:07 NS 0.9% 1000 ml IV at bolus once ordered. ke 18:07 Ondansetron 4 mg IVP once ordered. ke 18:07 ketorolac 30 mg IVP once ordered. ke 18:07 IV Saline Lock ordered. ke 18:07 Undress patient appropriately for examination ordered. ke 18:08 Amylase Ordered. EDMS 18:08 Lipase Ordered. EDMS 18:08 Urinalysis Ordered. EDMS 18:08 Digoxin Level Ordered. EDMS 18:08 Urine Culture Ordered. EDMS 18:08 CT ABD & PELVIS: No Contrast Ordered. EDMS 18:08 NOTHING BY MOUTH+DIET ordered. EDMS 18:55 Financial registration complete. zo 19:04 Urinalysis Reviewed. ke 19:18 [facility] [place] was scanned into [employer] and attached to record. zo 21:27 Admission / Observation Status ordered. EDMS 21:27 REGULAR DIET ordered. EDMS 21:29 ABCESS DRAIN (NEEDLE PLACE) US Ordered. EDMS 21:29 ABCESS DRAIN (NEEDLE PLACE) US Ordered. EDMS 21:53 BED REQUEST+ADM ordered. EDMS 22:03 CALPROTECTIN STOOL Ordered. EDMS 22:05 GASTROINTESTINAL (GI) PANEL Ordered. EDMS 02 12:00 T-Sheet-- Draft Copy was scanned into [employer] and attached to record. gb 15:06 Radiology Report was scanned into [employer] and attached to record. gb Administered Medications: 12/02 18:29 Drug: NS 0.9% 1000 ml [sodium chloride 0.9 % intravenous solution] Route: IV; Rate: kr3 bolus; Site: left antecubital; 22:32 Follow up: IV Status: Completed infusion; IV Intake: 1000ml ld5 18:29 Drug: Ondansetron 4 mg [ondansetron HCl 2 mg/mL intravenous solution (2 mL)] Route: kr3 IVP; Site: left antecubital; 18:31 Drug: ketorolac 30 mg [ketorolac 30 mg/mL (1 mL) injection solution (1 mL)] Route: IVP; kr3 Site: left antecubital; 22:32 Follow up: Response: Pain is decreased ld5 Signatures: Dispatcher [employer] EDMS Farnaz Espitia RN RN Radha Astudillo, Reg Reg gb Osmin Lindsay, WINEMAKER WINEMAKER Cielo Dhillon RosemaryRN RN rs3 Bozena Reid RN RN ld5 Raisa Ellis RN kr3 The chart was reviewed and I authenticate all verbal orders and agree with the evaluation and treatment provided.Corrections: (The following items were deleted from the chart) 22:05 22:03 GASTROINTESTINAL (GI) PANEL ordered. EDMS EDMS Attachments: 19:18 [facility] Payment Agreement zo 12/03 12:00 T-Sheet-- Draft Copy gb Chart Complete MTDD
[2016-12-05] VITALS (7 sets, daily range): BP systolic 101–136; BP diastolic 55–67; PULSE 122
[2016-12-05] MEDS ORDERED: zolPIDEM TARTRATE 10MG TAB PO ONE (01:45)
[2016-12-05] MEDS: LR 1,000 ML IV SCH (04:54)
[2016-12-05] MEDS: PIPERACILLIN/TAZOBACTAM SOD 3.375 GM in D5W MINI-BAG PLUS 50 ML IV SCH (05:21)
[2016-12-05] MEDS ORDERED: LOSARTAN 50 MG TAB PO SCH (09:00)
[2016-12-05] MEDS ORDERED: ATENOLOL 50 MG TAB PO SCH (09:00)
[2016-12-05] MEDS: DIGOXIN 0.125 MG TAB PO SCH (09:44)
[2016-12-05] MEDS: FINASTERIDE 5 MG TAB PO SCH (09:44)
[2016-12-05] MEDS ORDERED: LevoFLOXacin 500 MG TABLET PO ONE (10:15)
[2016-12-05 10:51] LABS: MEAN CORPUSCULAR HEMOGLOBIN 25.5 pg (27.0-33.0); MEAN CORPUSCULAR HGB CONC 31.5 g/dl (32.0-36.5); PLATELET COUNT, AUTOMATED 409 k/mm3 (150-450); RED CELL DISTRIBUTION WIDTH 14.2 % (11.5-14.5); WHITE BLOOD COUNT 23.8 K/mm3 (4.0-10.0)
[2016-12-05 11:18] LABS: CALCIUM LEVEL 7.4 MG/DL (8.8-10.2); CREATININE FOR GFR 1.68 MG/DL (0.70-1.30); DIGOXIN LEVEL 0.4 NG/ML (0.5-2.0); GLOMERULAR FILTRATION RATE 42.7 (>42); MAGNESIUM LEVEL 1.4 MG/DL (1.8-2.4); POTASSIUM SERUM 3.5 MEQ/L (3.5-5.1)
[2016-12-05 11:29] LABS: BASO % 0.1 % (0.0-1.0); DIFF SLIDE NUMBER 138; EOS # 0.1 K/mm3 (0.0-0.50); EOS % 0.2 % (0.0-3.0); LARGE UNSTAINED CELL # 0.2 K/mm3 (0.0-0.4); LYMPH # 1.2 K/mm3 (1.5-4.5); MONO # 1.4 K/mm3 (0.0-0.8); MONO % 5.5 % (0.0-5.0); NEUTROPHILS # 21.7 K/mm3 (1.8-7.7); NEUTROPHILS % 88.1 % (36.0-66.0)
--- NOTE | 2016-12-05 11:30 | REP ---
Clinical: Shortness of breath . Comparison: 12/02/2016. Findings: The mediastinum and cardiac silhouette are stable and within normal limits for portable technique. The lung zepeda are clear without acute consolidation, effusion, or pneumothorax. Skeletal structures are intact. Impression: No acute cardiopulmonary process. Signed by Marshall Hatch MD 12/05/2016 11:22 A
[2016-12-05] MEDS ORDERED: FUROSEMIDE 20 MG/2 ML VIAL (J1940) IV ONE (12:00)
[2016-12-05] MEDS ORDERED: MAG SULF 1GM/100ML (MAG RUN) 1 GM in APPROPRIATE DILUENT 1 EA IV ONE (12:00)
--- NOTE | 2016-12-05 12:58 | REP ---
Clinical: History of perirectal abscess. Evaluate for hematoma. Comparison: 12/02/2016. Findings: A pigtail catheter is identified at the site of previously identified left perirectal collection which has completely resolved. Liver, spleen, pancreas, and bilateral adrenal glands are normal. The kidneys demonstrate chronic perinephric stranding and bilateral cysts (left greater than right) with the largest cyst in the left upper pole measuring 7.7 cm diameter and no evidence for hydroureteronephrosis or nephroureterolithiasis. The enteric system is without obstruction or acute inflammatory process and a normal terminal ileum and appendix are identified in the right lower quadrant. Pelvis demonstrates normal bladder and changes suggesting prior prostate surgery. The sigmoid colon is fluid-filled and unremarkable. No ascites. No intraperitoneal or retroperitoneal adenopathy. No free air. Atherosclerotic changes of the aorta and branch vessels without aneurysm. Musculoskeletal structures demonstrate degenerative appearing changes. Lung bases demonstrate chronic change. Impression: 1. Previous left perirectal abscess with pigtail catheter appears to have completely resolved. 2. Chronic renal changes including 7.7 cm left renal cyst. 3. No ascites. 4. No acute intra-abdominal or pelvic pathology appreciated. Signed by Marshall Hatch MD 12/05/2016 12:50 P
[2016-12-05] MEDS: LevoFLOXacin IV 500 MG in APPROPRIATE DILUENT 1 EA IV SCH (14:22)
[2016-12-05] MEDS: ONDANSETRON 4MG/2ML VIAL (J2405) IV PRN (14:30)
[2016-12-05] MEDS: PANTOPRAZOLE 40MG TAB (PROTONIX) PO SCH ×2 (14:39→20:06)
[2016-12-05] MEDS: LOMOTIL 2.5MG/0.025MG TABLET PO SCH ×3 (14:40→20:06)
[2016-12-05] MEDS: LACTOBACILLUS ACIDOPHILUS CAP (BACID) PO SCH ×2 (14:40→17:52)
[2016-12-05] MEDS: SUCRALFATE SUSP 1GM/10ML UD PO SCH ×3 (14:40→20:06)
[2016-12-05] MEDS: METOPROLOL TART 25 MG TABLET PO SCH (17:53)
--- NOTE | 2016-12-05 18:03 | ECGEPIP ---
Stationary ECG Study [facility] Test Date: 2016-12-05 Pat Name: SHANTE FLETCHER Department: Room: [place] [address] Gender: M Airfield Manager: CONRAD : 1940 Requested By: Margarita HAILE Order Number: [id number] Reading MD: Carlos Friedman Measurements Intervals [place] Rate: 125 P: 19 LA: 163 QRS: 47 QRSD: 114 T: 0 QT: 303 QTc: 437 Interpretive Statements Underlying atrial fibrillation with somewhat rapid ventricular response. Somewhat low voltages with QS pattern V1 and V2; body habitus versus pulmonary disease. Rule out prior septal injury Nonspecific ST/T-wave abnormalities No prior tracing for comparison. Clinical correlation advised Electronically Signed On 12-05-2016 18:03:46 EST by Carlos Friedman
--- NOTE | 2016-12-05 18:09 | ECGEPIP ---
Stationary ECG Study [facility] Test Date: 2016-12-05 Pat Name: SHANTE FLETCHER Department: Room: [place] [address] Gender: M Training Officer: CONRAD : 1940 Requested By: Margarita HAILE Order Number: [id number] Reading MD: Carlos Friedman Measurements Intervals Street Rate: 127 P: [place]: 0 QRS: 47 QRSD: 113 T: 0 QT: 297 QTc: 433 Interpretive Statements Atrial fibrillationWith rapid ventricular response Somewhat low voltages with slow precordial R-wave progression, and small inferior Q waves; Body habitus versus pulmonary disease. Rule out prior septal/Inferior injuries. Nonspecific ST/T-wave abnormalities No change from tracing 2.5 hours earlier. Electronically Signed On 12-05-2016 18:09:28 EST by Carlos Friedman
[2016-12-05 20:34] LABS: BASO % 0.1 % (0.0-1.0); EOS # 0.1 K/mm3 (0.0-0.50); EOS % 0.5 % (0.0-3.0); LARGE UNSTAINED CELL # 0.3 K/mm3 (0.0-0.4); LARGE UNSTAINED CELL % 1.2 % (0.0-4.0); LYMPH # 1.8 K/mm3 (1.5-4.5); LYMPH % 5.8 % (24.0-44.0); MEAN CORPUSCULAR HEMOGLOBIN 28.2 pg (27.0-33.0); MEAN CORPUSCULAR HGB CONC 33.9 g/dl (32.0-36.5); MEAN CORPUSCULAR VOLUME 83.2 fl (80.0-96.0); MONO # 1.3 K/mm3 (0.0-0.8); NEUTROPHILS % 87.4 % (36.0-66.0); PLATELET COUNT, AUTOMATED 386 k/mm3 (150-450); RED CELL DISTRIBUTION WIDTH 15.8 % (11.5-14.5); WHITE BLOOD COUNT 25.1 K/mm3 (4.0-10.0)
[2016-12-05 20:55] LABS: ALBUMIN 1.8 GM/DL (3.2-5.2); ALBUMIN/GLOBULIN RATIO 0.9 (1.00-1.93); BILIRUBIN,TOTAL 0.5 MG/DL (0.2-1.0); CALCIUM LEVEL 7.2 MG/DL (8.8-10.2); CREATININE FOR GFR 1.63 MG/DL (0.70-1.30); GLOMERULAR FILTRATION RATE 44.2 (>42); POTASSIUM SERUM 3.5 MEQ/L (3.5-5.1); TOTAL PROTEIN 3.8 GM/DL (6.4-8.2)
[2016-12-06] VITALS (8 sets, daily range): BP systolic 106–140; BP diastolic 55–71; PULSE 93
[2016-12-06] MEDS: METOPROLOL TART 25 MG TABLET PO SCH ×5 (00:02→23:27)
[2016-12-06] MEDS ORDERED: LevoFLOXacin 500 MG TABLET PO SCH (06:00)
[2016-12-06 08:06] LABS: MEAN CORPUSCULAR HEMOGLOBIN 28.7 pg (27.0-33.0); MEAN CORPUSCULAR VOLUME 81.9 fl (80.0-96.0); PLATELET COUNT, AUTOMATED 293 k/mm3 (150-450); RED CELL DISTRIBUTION WIDTH 15.3 % (11.5-14.5); WHITE BLOOD COUNT 16.8 K/mm3 (4.0-10.0)
[2016-12-06 08:14] LABS: ALBUMIN 1.9 GM/DL (3.2-5.2); BILIRUBIN,TOTAL 0.5 MG/DL (0.2-1.0); CALCIUM LEVEL 7.5 MG/DL (8.8-10.2); CREATININE FOR GFR 1.44 MG/DL (0.70-1.30); GLOMERULAR FILTRATION RATE 51.1 (>42); POTASSIUM SERUM 3.3 MEQ/L (3.5-5.1); TOTAL PROTEIN 3.8 GM/DL (6.4-8.2)
[2016-12-06] MEDS: FINASTERIDE 5 MG TAB PO SCH (08:48)
[2016-12-06] MEDS: PANTOPRAZOLE 40MG TAB (PROTONIX) PO SCH ×2 (08:48→21:30)
[2016-12-06] MEDS: LACTOBACILLUS ACIDOPHILUS CAP (BACID) PO SCH ×3 (08:48→17:23)
[2016-12-06] MEDS: LOMOTIL 2.5MG/0.025MG TABLET PO SCH ×4 (08:48→21:30)
[2016-12-06] MEDS: SUCRALFATE SUSP 1GM/10ML UD PO SCH ×4 (08:48→21:30)
[2016-12-06] MEDS: DIGOXIN 0.125 MG TAB PO SCH (08:48)
[2016-12-06 08:50] LABS: ANISOCYTOSIS 2+; BANDS 2 % (< 11); EOSINOPHILS 3 % (0-5); HYPOCHROMASIA 1+; MICROCYTOSIS 1+; POLYCHROMASIA 1+
--- NOTE | 2016-12-06 09:16 | IPNPDOC ---
Subjective Date Seen The patient was seen on 12/06/16. Subjective Chief Complaint/HPI The patient is a 76-year-old male admitted with a reason for visit of Diarrhea, Gretchen-Rectal Abcess. Events since last encounter Pt states he feels better. Denies CP, SOB, Abd pain. Constitutional: Denies: Chills, Fever Pulmonary: Denies: Dyspnea Cardiovascular: Denies: Chest Pain Gastrointestinal: Denies: Abdominal Pain, Nausea, Vomiting Objective Physical Examination General Exam: Positive: Alert, No Acute Distress Neck Exam: Positive: Supple, Negative: JVD Chest Exam: Positive: Clear to auscultation Heart Exam: Positive: Rate Normal, Regular Rhythm Abdomen Exam: Positive: Normal bowel sounds, Soft, Negative: Tenderness Extremity Exam: Negative: Edema Assessment /Plan Problems (1) Gretchen-rectal abscess Status: Acute Problem Specific Plan: Monitor Clinically, Repeat Labs Problem Text: Surgery following. Percutaneous drainage by IR. Cx: Ecoli and RAOULTELLA PLANTICOLA. On IV Levaquin. (2) Diarrhea Status: Acute Problem Specific Plan: Monitor Clinically (3) Anemia Status: Acute Problem Specific Plan: Monitor Clinically, Repeat Labs Problem Text: Received 5 units PRBCs yesterday-today. Hgb went from 4.1 to 5.9 to 7.7. Getting two additional units today. Continue to monitor. (4) HTN (hypertension) Status: Chronic Problem Specific Plan: Monitor Clinically Problem Text: On Lopressor. (5) CHF (congestive heart failure) Status: Chronic Problem Specific Plan: Monitor Clinically (6) CAD (coronary artery disease) Status: Chronic Problem Specific Plan: Monitor Clinically (7) BPH (benign prostatic hyperplasia) Status: Chronic Problem Specific Plan: Monitor Clinically Problem Text: On Proscar. Plan/VTE VTE Prophylaxis Ordered?: No Plan Attending attestation: I saw and evaluated the patient, and I agree with the plan of care as discussed and documented by Emil Marquis. Stormy Davey MD VS, I&O, 24H, [facility] Vital Signs/I&O Vital Signs Date Time Temp Pulse Resp B/P Pulse Ox O2 Delivery O2 Flow Rate FiO2 12/06/16 08:48 80 12/06/16 07:02 125/64 12/06/16 04:00 Nasal Cannula 2.0 12/06/16 03:44 97.0 18 97 I&O- Last 24 Hours up to 6 AM 12/06/16 06:00 Intake Total 5630 ml Output Total 1455 ml Balance 4175 ml Laboratory Data 24H LABS Laboratory Tests 2 12/05/16 10:35: Anion Gap 12, White Blood Count 23.8H, Red Blood Count 1.61L, Hemoglobin 4.1#*L , Hematocrit 13.1L, Mean Corpuscular Volume 81.0, Mean Corpuscular Hemoglobin 25.5L, Mean Corpuscular Hemoglobin Concent 31.5L, Red Cell Distribution Width 14.2, Platelet Count 409, Neutrophils (%) (Auto) 88.1H, Lymphocytes (%) (Auto) 5.0L, Monocytes (%) (Auto) 5.5H, Eosinophils (%) (Auto) 0.2, Basophils (%) (Auto ) 0.1, Neutrophils # (Auto) 21.7H, Lymphocytes # (Auto) 1.2L, Monocytes # (Auto ) 1.4H, Eosinophils # (Auto) 0.1, Basophils # (Auto) 0.0, C-Reactive Protein, Quantitative 0.82H, Blood Urea Nitrogen 77H, Creatinine 1.68#H, Sodium Level 139 #, Potassium Level 3.5, Chloride Level 106, Carbon Dioxide Level 21, Calcium Level 7.4L, Total Creatine Kinase 54, Creatine Kinase MB 2.2, Creatine Kinase MB Relative Index 4.07H, Digoxin Level 0.4L, Glomerular Filtration Rate 42.7, Large Unclassified Cells # 0.2, Large Unclassified Cells % 1.0, Magnesium Level 1.4L, Troponin I 0.07 12/05/16 20:16: Anion Gap 9, White Blood Count 25.1H, Red Blood Count 2.09L, Hemoglobin 5.9*L, Hematocrit 17.4L, Mean Corpuscular Volume 83.2, Mean Corpuscular Hemoglobin 28.2 , Mean Corpuscular Hemoglobin Concent 33.9, Red Cell Distribution Width 15.8H, Platelet Count 386, Neutrophils (%) (Auto) 87.4H, Lymphocytes (%) (Auto) 5.8L, Monocytes (%) (Auto) 5.0, Eosinophils (%) (Auto) 0.5, Basophils (%) (Auto) 0.1, Neutrophils # (Auto) 22.0H, Lymphocytes # (Auto) 1.8, Monocytes # (Auto) 1.3H, Eosinophils # (Auto) 0.1, Basophils # (Auto) 0.0, Blood Urea Nitrogen 79H, Creatinine 1.63H, Sodium Level 139, Potassium Level 3.5, Chloride Level 104, Carbon Dioxide Level 26, Calcium Level 7.2L, Glomerular Filtration Rate 44.2, Large Unclassified Cells # 0.3, Large Unclassified Cells % 1.2, Aspartate Amino Transf (AST/SGOT) 15, Alanine Aminotransferase (ALT/SGPT) 31, Alkaline Phosphatase 131H, Total Bilirubin 0.5, Total Protein 3.8L, Albumin 1.8L, Albumin /Globulin Ratio 0.90L 12/06/16 07:41: White Blood Count 16.8H, Red Blood Count 2.70L, Hemoglobin 7.7L, Hematocrit 22.1L, Mean Corpuscular Volume 81.9, Mean Corpuscular Hemoglobin 28.7, Mean Corpuscular Hemoglobin Concent 35.0, Red Cell Distribution Width 15.3H, Platelet Count 293, Neutrophils (%) (Auto) , Lymphocytes (%) (Auto) , Monocytes (%) (Auto) , Eosinophils (%) (Auto) , Basophils (%) (Auto) , Neutrophils # (Auto ) , Lymphocytes # (Auto) , Monocytes # (Auto) , Eosinophils # (Auto) , Basophils # (Auto) , Large Unclassified Cells # , Large Unclassified Cells % , Anisocytosis 2+, Atypical Lymphocytes 3, Band Neutrophils 2, Eosinophils (Manual ) 3, Hypochromasia 1+, Lymphocytes (Manual) 7L, Metamyelocytes 2H, Microcytosis 1+, Monocytes (Manual) 3, Neutrophils 80H, Platelet Estimate NORMAL, Polychromasia 1+ 12/06/16 07:42: Anion Gap 7L, Blood Urea Nitrogen 73H, Creatinine 1.44H, Sodium Level 141, Potassium Level 3.3L, Chloride Level 106, Carbon Dioxide Level 28, Calcium Level 7.5L, Digoxin Level 0.3L, Glomerular Filtration Rate 51.1, Aspartate Amino Transf (AST/SGOT) 17, Alanine Aminotransferase (ALT/SGPT) 21, Alkaline Phosphatase 88, Total Bilirubin 0.5, Total Protein 3.8L, Albumin 1.9L, Albumin/ Globulin Ratio 1.00 CBC/BMP Laboratory Tests 12/05/16 10:35 Calcium Level 7.4 L, Total Creatine Kinase 54, Red Blood Count 1.61 L, Mean Corpuscular Volume 81.0, Mean Corpuscular Hemoglobin 25.5 L, Mean Corpuscular Hemoglobin Concent 31.5 L, Red Cell Distribution Width 14.2, Neutrophils (%) ( Auto) 88.1 H, Lymphocytes (%) (Auto) 5.0 L, Monocytes (%) (Auto) 5.5 H, Eosinophils (%) (Auto) 0.2, Basophils (%) (Auto) 0.1, Neutrophils # (Auto) 21.7 H, Lymphocytes # (Auto) 1.2 L, Monocytes # (Auto) 1.4 H, Eosinophils # (Auto) 0.1, Basophils # (Auto) 0.0 12/05/16 20:16 Calcium Level 7.2 L, Red Blood Count 2.09 L, Mean Corpuscular Volume 83.2, Mean Corpuscular Hemoglobin 28.2, Mean Corpuscular Hemoglobin Concent 33.9, Red Cell Distribution Width 15.8 H, Neutrophils (%) (Auto) 87.4 H, Lymphocytes (%) (Auto ) 5.8 L, Monocytes (%) (Auto) 5.0, Eosinophils (%) (Auto) 0.5, Basophils (%) ( Auto) 0.1, Neutrophils # (Auto) 22.0 H, Lymphocytes # (Auto) 1.8, Monocytes # ( Auto) 1.3 H, Eosinophils # (Auto) 0.1, Basophils # (Auto) 0.0, Aspartate Amino Transf (AST/SGOT) 15, Alanine Aminotransferase (ALT/SGPT) 31, Alkaline Phosphatase 131 H, Total Bilirubin 0.5, Total Protein 3.8 L, Albumin 1.8 L 12/06/16 07:41 Red Blood Count 2.70 L, Mean Corpuscular Volume 81.9, Mean Corpuscular Hemoglobin 28.7, Mean Corpuscular Hemoglobin Concent 35.0, Red Cell Distribution Width 15.3 H, Neutrophils (%) (Auto) , Lymphocytes (%) (Auto) , Monocytes (%) (Auto) , Eosinophils (%) (Auto) , Basophils (%) (Auto) , Neutrophils # (Auto) , Lymphocytes # (Auto) , Monocytes # (Auto) , Eosinophils # (Auto) , Basophils # (Auto) 12/06/16 07:42 Calcium Level 7.5 L, Aspartate Amino Transf (AST/SGOT) 17, Alanine Aminotransferase (ALT/SGPT) 21, Alkaline Phosphatase 88, Total Bilirubin 0.5, Total Protein 3.8 L, Albumin 1.9 L Microbiology Microbiology 12/03/16 Gram Stain - Final, Resulted 12/03/16 Abscess Culture - Preliminary, Resulted Escherichia Coli Raoultella Planticola 12/02/16 Urine Culture - Final, Complete 12/03/16 Anaerobic Culture, Received Pending Stanford Marquis Dec 06, 2016 09:15 STORMY DAVEY MD Dec 12, 2016 19:48
[2016-12-06] MEDS ORDERED: POTASSIUM CHLORIDE 10 MEQ SR TABLET PO ONE (10:00)
[2016-12-06] MEDS: LevoFLOXacin IV 500 MG in APPROPRIATE DILUENT 1 EA IV SCH (11:48)
--- NOTE | 2016-12-06 13:35 | CR ---
DATE OF CONSULTATION: 12/05/2016 HISTORY OF PRESENT ILLNESS: This is a 76-year-old gentleman who was admitted to the surgical service for a perirectal abscess on 12/02/2016. This was noted after several months of complaints of significant amounts of diarrhea. Patient is status post percutaneous drainage of deep perirectal abscess with Dr. Devlin on December 03. Patient was placed on piperacillin and tazobactam (piptaz) IV for hospitalization. Seemed to be doing well and was anticipating discharge home within the last 24 hours; however, he started to complain of simply not feeling well and was observed overnight. This morning, patient complained of feeling unwell, having significant amount of heart palpitations, dizziness, and diaphoresis with any physical activity. Patient thought he was having some panic attacks. States he is continuing to have significant amounts of diarrhea. We were contacted by the surgical service for evaluation to consider medical etiology of the patient's symptoms. PAST MEDICAL HISTORY: Significant for: 1. Hypertension with hypertensive heart disease and left ventricular hypertrophy (LVH). 2. Coronary artery disease. He is status post myocardial infarction (MN) and coronary artery bypass graft (CABG) in 2002. His air chipper or record is Dr. Darrel Nicole; however, patient states he has not seen this provider within the last several years. His most recent echocardiogram was in 2009 with an ejection fraction (EF) of 30%. 3. History of celiac disease confirmed with biopsy. 4. Benign prostatic hypertrophy (BPH) status post transurethral resection of prostate (TURP). 5. Witnessed sleep apnea; however, patient declines evaluation of treatment. 6. 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 7. Vitamin B12 deficiency. 8. Folate deficiency. SURGICAL HISTORY: 1. Significant for CABG times three vessels in 0615-6048 range. 2. Cholecystectomy. 3. TURP. 4. Hemorrhoidectomy. 5. Esophagogastroduodenoscopy (EGD) with colonoscopy. Has a history of diverticulosis and hemorrhoids. These were completed by Dr. Lowe in 2002. 6. Repeat colonoscopy in 2010. FAMILY HISTORY: Father at age 61 years with heart disease. Mother living in her 90s with a history of heart disease. SOCIAL HISTORY: Patient is a former smoker. Has not smoked a cigarette in well over 10 years. Alcohol: Denies. Caffeine: Patient drinks large portions of tea daily. Diet is mostly gluten free. Marital status: Patient is . He lives alone. Has four dogs; however, his family is very supportive and helps care for him within the home. REVIEW OF SYSTEMS: Patient denies significant amounts of dyspnea, diaphoresis, as well as heart palpitation with any movement. He states he is feeling poorly, unwell, and has a significant amount of anxiety. He does admit to some significant weakness. Denies any active abdominal pain. Does complain of significant diarrhea, consistent with his perirectal abscess, and this has been occurring since his admission. This is unresolved with the addition of loperamide to his medication course. PHYSICAL EXAMINATION: Blood pressure this morning was lower, in the 100/60 range. Patient has been tachycardic since his admission in the 1-teens to the highest is 133. He did have one heart rate of 68. This morning, most recent vital signs at 11 a.m. include a blood pressure of 132/62, respiratory rate of 18, heart rate of 126, temperature 97.1, oxygen saturation 98% on room air. HEENT: Neck is supple without lymphadenopathy. No visible jugular venous distention (JVD) is appreciated. CARDIOVASCULAR: Heart rate and rhythm are regular, yet tachycardic. PULMONARY: He has some crackles to the left base; otherwise clear. ABDOMEN: Moderately distended with positive bowel sounds throughout. He is mildly tender throughout exam as well on palpation of the abdomen. Bilateral lower extremities show +1 edema up to the knees. Positive pedal pulses bilaterally. NEUROLOGIC: He is alert and oriented times three. No appreciated tremor or cognitive deficit. PSYCHIATRIC: Patient's affect is mildly flat. He is anxious and concerned. Speech is mildly pressured. Labs have returned. Patient shows a hemoglobin of 4.1 with a hematocrit of 13.1, RBC are 1.61. His white blood cell count is 23,000, platelets are 409. Chemistries continue pend. We also are pending on a CIP with troponin. Digoxin level is also pending. ASSESSMENT: 1. Acute blood loss anemia, probably gastrointestinal in etiology. Dr. Potter , the surgical attending, is aware and plans on CT abdomen and pelvis. Patient will be transfused 2 units packed red cells with Lasix 20 mg IV in between units. He will be transferred to the progressive care unit (PCU) for further monitoring given the acuity of his acute blood loss and significant medical history. 2. Dyspnea tachycardia, shortness of breath. Patient does have a past medical history of congestive heart failure. We will evaluate a chest x-ray to rule out pleural effusion, cardiomegaly. At this time it will be completed portable secondary to patient's severe anemia. 3. Chronic systolic congestive heart failure. Patient has a documented history of an ejection fraction of 30%. It would be prudent to repeat an echocardiogram once patient is stable or as needed. 4. Hypertension with hypertensive heart disease. Parameters are provided for patient's atenolol. We are awaiting a digoxin level for further evaluation. Patient's fluid volume status will need to be maintained accordingly to keep the stable blood pressure. 5. Patient has a history of benign prostatic hypertrophy (BPH) and is status post transurethral resection of prostate (TURP). We will continue with is Proscar 5 mg one daily. 6. Perirectal abscess. Patient has Levaquin 500 mg IV. We will defer to general surgery for their choice of antibiotic for the perirectal abscess. Case was discussed with patient and his daughter. Testing will be performed. Case was discussed with Dr. Danny Renner and is in agreement. Any further recommendations or adjustment will be made in the electronic medical record. Attending physician note: The patient was seen and examined by me and the case discussed with the RPA. Agree with above management. Will need multiple units of blood transfusion. At the time I initially saw him he was pale, nauseated and had developed a rapid atrial fibrillation. I also put him on lopressor. Will require close assessment. Thank you for this consult on Teofilo Thorpe. [facility]ITAL[facility]rah
[2016-12-06 15:38] LABS: MEAN CORPUSCULAR HEMOGLOBIN 29.9 pg (27.0-33.0); MEAN CORPUSCULAR HGB CONC 35.5 g/dl (32.0-36.5); MEAN CORPUSCULAR VOLUME 84.2 fl (80.0-96.0); RED CELL DISTRIBUTION WIDTH 15.1 % (11.5-14.5); WHITE BLOOD COUNT 15.2 K/mm3 (4.0-10.0)
[2016-12-06] MEDS: FUROSEMIDE 40 MG TAB PO SCH (15:44)
[2016-12-07] VITALS: BP 117/60
[2016-12-07 05:30] LABS: MEAN CORPUSCULAR HEMOGLOBIN 29.2 pg (27.0-33.0); MEAN CORPUSCULAR VOLUME 83.5 fl (80.0-96.0); PLATELET COUNT, AUTOMATED 244 k/mm3 (150-450); RED CELL DISTRIBUTION WIDTH 15.5 % (11.5-14.5); WHITE BLOOD COUNT 10.9 K/mm3 (4.0-10.0)
[2016-12-07] MEDS: METOPROLOL TART 25 MG TABLET PO SCH ×2 (05:39→12:21)
[2016-12-07 05:49] LABS: ALBUMIN 1.9 GM/DL (3.2-5.2); ALBUMIN/GLOBULIN RATIO 0.95 (1.00-1.93); BILIRUBIN,TOTAL 0.5 MG/DL (0.2-1.0); CALCIUM LEVEL 7.1 MG/DL (8.8-10.2); CREATININE FOR GFR 1.33 MG/DL (0.70-1.30); POTASSIUM SERUM 3.5 MEQ/L (3.5-5.1); TOTAL PROTEIN 3.9 GM/DL (6.4-8.2)
[2016-12-07 06:00] VITALS: BP 105/65
[2016-12-07 06:20] LABS: BANDS 1 % (< 11); EOSINOPHILS 1 % (0-5)
[2016-12-07 06:21] LABS: ANISOCYTOSIS 1+; POLYCHROMASIA 1+
[2016-12-07 07:10] VITALS: BP 130/62
[2016-12-07] MEDS: FINASTERIDE 5 MG TAB PO SCH (07:57)
[2016-12-07] MEDS: DIGOXIN 0.125 MG TAB PO SCH (07:57)
[2016-12-07] MEDS: LOMOTIL 2.5MG/0.025MG TABLET PO SCH ×2 (07:58→12:20)
[2016-12-07] MEDS: FUROSEMIDE 40 MG TAB PO SCH (07:58)
[2016-12-07] MEDS: PANTOPRAZOLE 40MG TAB (PROTONIX) PO SCH (07:58)
[2016-12-07] MEDS: LACTOBACILLUS ACIDOPHILUS CAP (BACID) PO SCH ×2 (07:59→12:20)
[2016-12-07] MEDS: SUCRALFATE SUSP 1GM/10ML UD PO SCH ×2 (07:59→12:19)
[2016-12-07] MEDS ORDERED: POTASSIUM CHLORIDE 10 MEQ SR TABLET PO SCH (09:00)
--- NOTE | 2016-12-07 09:51 | IPNPDOC ---
Subjective Date Seen The patient was seen on 12/07/16. Subjective Chief Complaint/HPI The patient is a 76-year-old male admitted with a reason for visit of Diarrhea, Gretchen-Rectal Abcess. Events since last encounter Pt denies Abd pain, CP, SOB. Denies blood in stool. Constitutional: Denies: Chills, Fever Pulmonary: Denies: Dyspnea Cardiovascular: Denies: Chest Pain, Palpitations Gastrointestinal: Denies: Abdominal Pain, Nausea, Vomiting Objective Physical Examination General Exam: Positive: Alert, No Acute Distress Neck Exam: Positive: Supple, Negative: JVD Chest Exam: Positive: Clear to auscultation Heart Exam: Positive: Rate Normal, Regular Rhythm Abdomen Exam: Positive: Normal bowel sounds, Soft, Negative: Tenderness Extremity Exam: Negative: Edema Assessment /Plan Problems (1) Gretchen-rectal abscess Status: Acute Problem Specific Plan: Monitor Clinically, Repeat Labs Problem Text: Surgery following. Percutaneous drainage by IR. Cx: Ecoli and RAOULTELLA PLANTICOLA. On IV Levaquin. (2) Diarrhea Status: Acute Problem Specific Plan: Monitor Clinically (3) Anemia Status: Acute Problem Specific Plan: Monitor Clinically, Repeat Labs Problem Text: 12/07 - Received a total of 7 units PRBCs. Hgb 8.7. Was 9.6 last night. Scheduled for repeat hemoglobin check at 12:00 o'clock today. 12/06 - Received 5 units PRBCs yesterday-today. Hgb went from 4.1 to 5.9 to 7.7. Getting two additional units today. Continue to monitor. (4) HTN (hypertension) Status: Chronic Problem Specific Plan: Monitor Clinically Problem Text: On Lopressor. (5) CHF (congestive heart failure) Status: Chronic Problem Specific Plan: Monitor Clinically (6) CAD (coronary artery disease) Status: Chronic Problem Specific Plan: Monitor Clinically (7) BPH (benign prostatic hyperplasia) Status: Chronic Problem Specific Plan: Monitor Clinically Problem Text: On Proscar. Plan/VTE VTE Prophylaxis Ordered?: No Plan Attending attestation: I saw and evaluated the patient, and I agree with the plan of care as discussed and documented by Emil Marquis. Stormy Davey MD VS, I&O, 24H, Fishbone Vital Signs/I&O Vital Signs Date Time Temp Pulse Resp B/P Pulse Ox O2 Delivery O2 Flow Rate FiO2 12/07/16 08:00 Room Air 12/07/16 07:57 82 12/07/16 07:10 97.7 18 130/62 97 12/06/16 20:00 2.0 I&O- Last 24 Hours up to 6 AM 12/07/16 06:00 Intake Total 3431 ml Output Total 1215 ml Balance 2216 ml Laboratory Data 24H LABS Laboratory Tests 2 12/07/16 05:04: Blood Urea Nitrogen 42H, Creatinine 1.33H, Sodium Level 144, Potassium Level 3.5 , Chloride Level 109H, Carbon Dioxide Level 28, Calcium Level 7.1L, Aspartate Amino Transf (AST/SGOT) 24, Alanine Aminotransferase (ALT/SGPT) 27, Alkaline Phosphatase 93, Total Bilirubin 0.5, Total Protein 3.9L, Albumin 1.9L, Albumin/ Globulin Ratio 0.95L, Anion Gap 7L, Anisocytosis 1+, Band Neutrophils 1, Basophilic Stippling 1+, White Blood Count 10.9H, Red Blood Count 2.97L, Hemoglobin 8.7L, Hematocrit 24.8L, Mean Corpuscular Volume 83.5, Mean Corpuscular Hemoglobin 29.2, Mean Corpuscular Hemoglobin Concent 35.0, Red Cell Distribution Width 15.5H, Platelet Count 244, Neutrophils (%) (Auto) , Lymphocytes (%) (Auto) , Monocytes (%) (Auto) , Eosinophils (%) (Auto) , Basophils (%) (Auto) , Neutrophils # (Auto) , Lymphocytes # (Auto) , Monocytes # (Auto) , Eosinophils # (Auto) , Basophils # (Auto) , Eosinophils (Manual) 1, Glomerular Filtration Rate 56.0, Large Unclassified Cells # , Large Unclassified Cells % , Lymphocytes (Manual) 9L, Metamyelocytes 3H, Monocytes ( Manual) 10H, Myelocytes 1H, Neutrophils 75, Platelet Estimate NORMAL, Polychromasia 1+ CBC/BMP Laboratory Tests 12/06/16 15:22 Red Blood Count 3.07 L, Mean Corpuscular Volume 84.2, Mean Corpuscular Hemoglobin 29.9, Mean Corpuscular Hemoglobin Concent 35.5, Red Cell Distribution Width 15.1 H 12/06/16 18:07 12/07/16 05:04 Red Blood Count 2.97 L, Mean Corpuscular Volume 83.5, Mean Corpuscular Hemoglobin 29.2, Mean Corpuscular Hemoglobin Concent 35.0, Red Cell Distribution Width 15.5 H, Calcium Level 7.1 L, Aspartate Amino Transf (AST/SGOT ) 24, Alanine Aminotransferase (ALT/SGPT) 27, Alkaline Phosphatase 93, Total Bilirubin 0.5, Total Protein 3.9 L, Albumin 1.9 L, Neutrophils (%) (Auto) , Lymphocytes (%) (Auto) , Monocytes (%) (Auto) , Eosinophils (%) (Auto) , Basophils (%) (Auto) , Neutrophils # (Auto) , Lymphocytes # (Auto) , Monocytes # (Auto) , Eosinophils # (Auto) , Basophils # (Auto) Microbiology Microbiology 12/03/16 Gram Stain - Final, Complete 12/03/16 Abscess Culture - Final, Complete Escherichia Coli Raoultella Planticola Strep Anginosus (S.milleri) 12/02/16 Urine Culture - Final, Complete 12/03/16 Anaerobic Culture, Received Pending Stanford Marquis Dec 07, 2016 09:51 STORMY DAVEY MD Dec 12, 2016 12:05
[2016-12-07 11:35] VITALS: BP 123/64
[2016-12-07 12:21] VITALS: BP 140/70
[2016-12-07] MEDS ORDERED: PANT40TA2 PO (13:14)
[2016-12-07] MEDS ORDERED: LEVA500T PO (13:14)
[2016-12-07] MEDS ORDERED: DIPH2.5T14 PO (13:14)
[2016-12-07] MEDS ORDERED: RISATAB3 PO (13:15)
[2016-12-08] MEDS ORDERED: LevoFLOXacin 500 MG TABLET PO SCH (06:00)
--- NOTE | 2016-12-22 07:43 | DSES ---
DATE OF ADMISSION: 12/02/2016 DATE OF DISCHARGE: 12/07/2016 DISCHARGE DIAGNOSES: 1. Perirectal abscess status post percutaneous drainage 2. History of congestive heart failure. 3. Chronic diarrhea. 4. Acute blood loss anemia, suspect most likely upper GI source, status post transfusion. 5. Hypertension, stable. 6. Coronary artery disease, stable. 7. Benign prostatic hypertrophy (BPH), stable. 8. Suspect sleep apnea. DISCHARGE MEDICATIONS: (continued medications) - aspirin 325 mg daily - atenolol 50 mg daily - cholecalciferol 1000 units daily - cyanocobalamin (vitamin B12) 500 microgram daily - digoxin 0.125 daily - finasteride 5 mg daily - folic acid 1 mg daily - furosemide 80 mg daily - losartan 100 mg daily (new prescriptions) - diphenoxylate/atropine 1 tablet before meals and at bedtime as needed for diarrhea - levofloxacin 500 mg daily times 10 days - pantoprazole 40 mg twice a day - Probiotic two capsules daily HOSPITAL COURSE: Mr. Thorep is a 76-year-old gentleman with history of chronic diarrhea that got exacerbated roughly about three to four weeks prior to his presentation to the emergency room. He also had been having some periods of nausea or vomiting. He presented himself to the Urgent Care and was found to have elevated white cell count of 18,000 and subsequently sent to the emergency room. On workup in the emergency room, a CT scan of the abdomen and pelvis was performed. He had a 4.5 cm left perirectal abscess that was found on examination by me in the ER. This did not seem to be accessible on an open surgical approach as the area was not clearly defined and much higher perirectally. Thus, we opted for percutaneous drainage. Radiology placed a percutaneous drain, draining purulent material. This grew E-coli and Strep. He improved, except the next day he was feeling lightheaded. His hemoglobin dropped from 9.1 the day before to 4.1. He was not having any gross bleeding from the percutaneous drain site, though was reported to be having some black stools prior to his presentation to the emergency room on admission. He received a total of 7 units. He improved. His symptoms resolved. The patient wanted to go home and him being stable we opted to discharge him on twice a day Protonix with plans for doing an upper endoscopy within about 4-6 weeks to document healing of what most likely was a bleeding ulcer and most likely did bleed prior to his presentation to the emergency room. His percutaneous drain was removed after a couple days, it was not draining anything much. His leukocytosis likewise resolved or nearly resolved on the day of the discharge. On discharge, the patient feels well. His diarrhea is being controlled with loperamide. His hemoglobin/hematocrit had been stable after the transfusion with no evidence of any ongoing bleed. He will follow up with me in the clinic to be scheduled for both upper endoscopy and colonoscopy.
== END 2016-12-07 15:55 | disposition home or self-care (01) | DRG 394 ==
LOC: M ED 16:57 → M ED INP 21:22 → M ALC 23:01 → M MSPAV 12-03 15:05 → M PCU 12-05 12:05
PROVIDERS: ADMIT Surgery; ATTEND Surgery
PROC: 0D9P30Z Drainage of Rectum with Drainage Device, Percutaneous Approach (ICD-10-PCS; principal; 2016-12-03)
PROC: 30233N1 Transfusion of Nonautologous Red Blood Cells into Peripheral Vein, Percutaneous Approach (ICD-10-PCS; 2016-12-05)
DX: K61.1 Rectal abscess (principal); D62 Acute posthemorrhagic anemia; I50.22 Chronic systolic (congestive) heart failure; R19.7 Diarrhea, unspecified; K90.0 Celiac disease; R11.10 Vomiting, unspecified; E53.8 Deficiency of other specified B group vitamins; N40.0 Benign prostatic hyperplasia without lower urinary tract symptoms; I11.0 Hypertensive heart disease with heart failure; G47.30 Sleep apnea, unspecified; I25.10 Atherosclerotic heart disease of native coronary artery without angina pectoris; B96.20 Unspecified Escherichia coli [E. coli] as the cause of diseases classified elsewhere; B95.5 Unspecified streptococcus as the cause of diseases classified elsewhere; D63.8 Anemia in other chronic diseases classified elsewhere; I25.2 Old myocardial infarction; Z90.49 Acquired absence of other specified parts of digestive tract; Z79.899 Other long term (current) drug therapy; Z95.1 Presence of aortocoronary bypass graft; Z87.891 Personal history of nicotine dependence; Z82.49 Family history of ischemic heart disease and other diseases of the circulatory system

== ENCOUNTER → 2016-12-02 | Outpatient (CLI) | payer MEDICARE ==
[~2016-12-02] MED LIST: ASPI325T PO; ATEN50TA2 PO; DIGO0.12 PO; DIPH2.5T14 PO; FERR325T PO; FINA5TAB2 PO; FOLI1TAB2 PO; FURO40TA2 PO; LEVA500T PO; LOSA100T36 PO; PANT40TA2 PO; RISATAB3 PO; VITA100066 PO; VITA500T3 PO
--- NOTE | 2016-12-02 13:40 | REP ---
Clinical: Abdominal pain with vomiting and diarrhea. Technique: Upright view of the chest with supine and upright views of the abdomen and pelvis. Findings: Frontal view of the chest demonstrates chronic appearing changes. Acute atelectasis/opacity cannot be excluded. No free air below the diaphragm. Bowel gas pattern is nonspecific. Evidence for prior cholecystectomy. Skeletal structures intact. Impression: Frontal view of the chest cannot exclude [id number] infrahilar opacities. Nonspecific bowel gas pattern. Signed by Marshall Hatch MD 12/02/2016 01:32 P
[2016-12-02 14:56] LABS: BASO % 0.1 % (0.0-1.0); EOS # 0.1 K/mm3 (0.0-0.50); EOS % 0.4 % (0.0-3.0); LARGE UNSTAINED CELL # 0.1 K/mm3 (0.0-0.4); LARGE UNSTAINED CELL % 0.7 % (0.0-4.0); LYMPH # 0.6 K/mm3 (1.5-4.5); LYMPH % 2.5 % (24.0-44.0); MEAN CORPUSCULAR HEMOGLOBIN 25.8 pg (27.0-33.0); MEAN CORPUSCULAR HGB CONC 32.1 g/dl (32.0-36.5); MEAN CORPUSCULAR VOLUME 80.5 fl (80.0-96.0); MONO # 1.5 K/mm3 (0.0-0.8); MONO % 8.2 % (0.0-5.0); NEUTROPHILS # 16.7 K/mm3 (1.8-7.7); NEUTROPHILS % 88.2 % (36.0-66.0); PLATELET COUNT, AUTOMATED 301 k/mm3 (150-450); RED CELL DISTRIBUTION WIDTH 13.9 % (11.5-14.5); WHITE BLOOD COUNT 18.9 K/mm3 (4.0-10.0)
[2016-12-02 15:19] LABS: ALBUMIN 3.3 GM/DL (3.2-5.2); ALBUMIN/GLOBULIN RATIO 1.18 (1.00-1.93); ALKALINE PHOSPHATASE 213 U/L (45-117); ALT/SGPT 30 U/L (12-78); ANION GAP 12 MEQ/L (8-16); AST/SGOT 17 U/L (15-37); BILIRUBIN,TOTAL 0.4 MG/DL (0.2-1.0); BLOOD UREA NITROGEN 29 MG/DL (7-18); CALCIUM LEVEL 8.3 MG/DL (8.8-10.2); CARBON DIOXIDE LEVEL 26 MEQ/L (21-32); CHLORIDE LEVEL 107 MEQ/L (98-107); CREATININE FOR GFR 1.04 MG/DL (0.70-1.30); GLOMERULAR FILTRATION RATE > 60.0 (>42); GLUCOSE, FASTING 138 MG/DL (83-110); POTASSIUM SERUM 3.5 MEQ/L (3.5-5.1); SODIUM LEVEL 145 MEQ/L (136-145); TOTAL PROTEIN 6.1 GM/DL (6.4-8.2)
== END ==
LOC: M ADAMS 13:07
PROVIDERS: ATTEND Physician Assistant
DX: R11.10 Vomiting, unspecified (principal); R19.7 Diarrhea, unspecified

== ENCOUNTER → 2017-01-12 | Outpatient (CLI) | payer MEDICARE ==
[~2017-01-12] VITALS: Ht 179.1 cm; Wt 100.7 kg
[~2017-01-12] MED LIST changes: +LIDOCAINE 2% INJ 100 MG/5 ML SDV (FOR ANES.) As Ordered ONE; +MULT1TAB10 PO; +NS 1,000 ML IV SCH; +PROPOFOL 200 MG/20 ML VIAL As Ordered ONE
--- NOTE | 2017-01-12 13:34 | ROOR ---
Patient Name: Teofilo Thorpe Procedure Date: 01/12/2017 12:42 PM Date of : 1940 Age: 76 Room: [facility] Gender: Male Note Status: Finalized Procedure: Upper GI endoscopy Indications: Acute post hemorrhagic anemia Providers: Tavares Devlin MD Referring MD: JUAN MIGUEL COVINGTON [facility] JUAN MIGUEL COVINGTON [facility], Admin. Requesting Provider: Medicines: Monitored Anesthesia Care Complications: No immediate complications. Procedure: Pre-Anesthesia Assessment: - Prior to the procedure, a History and Physical was performed, and patient medications and allergies were reviewed. The patient is competent. The risks and benefits of the procedure and the sedation options and risks were discussed with the patient. All questions were answered and informed consent was obtained. Patient identification and proposed procedure were verified by the physician, the nurse and the anesthesiologist in the endoscopy suite. Mental Status Examination: alert and oriented. Airway Examination: normal oropharyngeal airway and neck mobility. Respiratory Examination: clear to auscultation. CV Examination: normal. Prophylactic Antibiotics: The patient does not require prophylactic antibiotics. Prior Anticoagulants: The patient has taken aspirin, last dose was day of procedure. ASA Grade Assessment: III - A patient with severe systemic disease. After reviewing the risks and benefits, the patient was deemed in satisfactory condition to undergo the procedure. The anesthesia plan was to use monitored anesthesia care (MAC). Immediately prior to administration of medications, the patient was re-assessed for adequacy to receive sedatives. The heart rate, respiratory rate, oxygen saturations, blood pressure, adequacy of pulmonary ventilation, and response to care were monitored throughout the procedure. The physical status of the patient was re-assessed after the procedure. The Endoscope was introduced through the mouth, and advanced to the second part of duodenum. The upper GI endoscopy was accomplished without difficulty. The patient tolerated the procedure well. Findings: No gross lesions were noted in the distal esophagus. A few localized, non-bleeding erosions were found at the pylorus. There were no stigmata of recent bleeding. Biopsies were taken with a cold forceps for Helicobacter pylori testing. Estimated blood loss was minimal. A single 9 mm pedunculated polyp with no bleeding was found in the duodenal bulb. The polyp was removed with a hot snare. Resection and retrieval were complete. Estimated blood loss: none. Impression: - No gross lesions in esophagus. - Non-bleeding erosive gastropathy. Biopsied. - A single duodenal polyp. Resected and retrieved. Recommendation: - Discharge patient to home (ambulatory). - Resume aspirin at prior dose tomorrow. - Await pathology results. - Telephone my office for pathology results in 2 weeks. Tavares Devlin MD Tavares Devlin MD 01/12/2017 1:33:54 PM This report has been signed electronically. Number of Addenda: 0 Note Initiated On: 01/12/2017 12:42 PM Estimated Blood Loss: Estimated blood loss was minimal.
--- NOTE | 2017-01-12 13:39 | ROOR ---
Patient Name: Teofilo Thorpe Procedure Date: 01/12/2017 1:00 PM Date of : 1940 Age: 76 Room: [facility] Gender: Male Note Status: Finalized Procedure: Colonoscopy Indications: Chronic diarrhea, Iron deficiency anemia Providers: Tavares Devlin MD Referring MD: JUAN MIGUEL COVINGTON [facility] JUAN MIGUEL COVINGTON [facility], Admin. Requesting Provider: Medicines: Monitored Anesthesia Care Complications: No immediate complications. Procedure: Pre-Anesthesia Assessment: - Prior to the procedure, a History and Physical was performed, and patient medications and allergies were reviewed. The patient is competent. The risks and benefits of the procedure and the sedation options and risks were discussed with the patient. All questions were answered and informed consent was obtained. Patient identification and proposed procedure were verified by the physician, the nurse and the anesthesiologist in the endoscopy suite. Mental Status Examination: alert and oriented. Airway Examination: normal oropharyngeal airway and neck mobility. Respiratory Examination: clear to auscultation. CV Examination: normal. ASA Grade Assessment: III - A patient with severe systemic disease. After reviewing the risks and benefits, the patient was deemed in satisfactory condition to undergo the procedure. The anesthesia plan was to use monitored anesthesia care (MAC). Immediately prior to administration of medications, the patient was re-assessed for adequacy to receive sedatives. The heart rate, respiratory rate, oxygen saturations, blood pressure, adequacy of pulmonary ventilation, and response to care were monitored throughout the procedure. The physical status of the patient was re-assessed after the procedure. The Colonoscope was introduced through the anus and advanced to the terminal ileum, with identification of the appendiceal orifice and IC valve. The colonoscopy was technically difficult and complex due to multiple diverticula in the colon, restricted mobility of the colon and the patient's body habitus. The patient tolerated the procedure well. The quality of the bowel preparation was fair. Findings: The perianal and digital rectal examinations were normal. A small polyp was found in the cecum. The polyp was sessile. The polyp was removed with a hot snare. Resection and retrieval were complete. Estimated blood loss was minimal. The terminal ileum appeared normal. This was biopsied with a cold forceps for evaluation of celiac disease. Estimated blood loss was minimal. either an inflamed inverted diverticulum vs locally inflamed polyp > 1 cm, This was biopsied with a cold forceps for histology. No additional abnormalities were found on retroflexion. Impression: - Preparation of the colon was fair. - One small polyp in the cecum, removed with a hot snare. Resected and retrieved. - The examined portion of the ileum was normal. Biopsied. Recommendation: - Discharge patient to home (ambulatory). - Await pathology results. - Telephone my office for pathology results in 2 weeks. - Repeat colonoscopy in 5 years for surveillance. Tavares Devlin MD Tavares Devlin MD 01/12/2017 1:39:41 PM This report has been signed electronically. Number of Addenda: 0 Note Initiated On: 01/12/2017 1:00 PM Estimated Blood Loss: Estimated blood loss was minimal.
[2017-01-12 13:55] VITALS: BP 149/77
== END | disposition home or self-care (01) ==
LOC: M OPP 10:33
PROVIDERS: ATTEND Surgery
DX: R19.7 Diarrhea, unspecified (principal); D12.0 Benign neoplasm of cecum; D50.9 Iron deficiency anemia, unspecified; K61.1 Rectal abscess; D62 Acute posthemorrhagic anemia; K31.7 Polyp of stomach and duodenum; K31.89 Other diseases of stomach and duodenum; I25.10 Atherosclerotic heart disease of native coronary artery without angina pectoris; I10 Essential (primary) hypertension; R12 Heartburn; Z86.69 Personal history of other diseases of the nervous system and sense organs; G47.30 Sleep apnea, unspecified; R06.83 Snoring; I50.9 Heart failure, unspecified; I25.2 Old myocardial infarction; N40.1 Benign prostatic hyperplasia with lower urinary tract symptoms; Z95.1 Presence of aortocoronary bypass graft; Z79.82 Long term (current) use of aspirin; Z79.899 Other long term (current) drug therapy; Z87.891 Personal history of nicotine dependence

== ENCOUNTER → 2017-12-27 | Outpatient (REF) | payer MEDICARE ==
[2017-12-27 20:08] LABS: HEMATOCRIT 41.4 % (42.0-52.0); HEMOGLOBIN 12.8 g/dl (14.0-18.0); MEAN CORPUSCULAR HEMOGLOBIN 25.6 pg (27.0-33.0); MEAN CORPUSCULAR HGB CONC 30.9 g/dl (32.0-36.5); MEAN CORPUSCULAR VOLUME 82.8 fl (80.0-96.0); PLATELET COUNT, AUTOMATED 225 10^3/uL (150-450); RED CELL DISTRIBUTION WIDTH 14.8 % (11.5-14.5); WHITE BLOOD COUNT 6.6 10^3/uL (4.0-10.0)
[2017-12-27 20:21] LABS: ALBUMIN/GLOBULIN RATIO 1.43 (1.00-1.93); ALKALINE PHOSPHATASE 248 U/L (45-117); ALT/SGPT 48 U/L (12-78); ANION GAP 7 MEQ/L (8-16); AST/SGOT 29 U/L (7-37); BILIRUBIN,TOTAL 0.5 MG/DL (0.2-1.0); BLOOD UREA NITROGEN 24 MG/DL (7-18); CALCIUM LEVEL 8.4 MG/DL (8.8-10.2); CARBON DIOXIDE LEVEL 30 MEQ/L (21-32); CHLORIDE LEVEL 107 MEQ/L (98-107); CREATININE FOR GFR 0.97 MG/DL (0.70-1.30); GLOMERULAR FILTRATION RATE > 60.0 (>42); GLUCOSE, FASTING 105 MG/DL (70-100); SODIUM LEVEL 144 MEQ/L (136-145); TOTAL PROTEIN 6.8 GM/DL (6.4-8.2)
== END ==
LOC: M SFHCADAM 16:57
DX: D50.9 Iron deficiency anemia, unspecified (principal); I50.22 Chronic systolic (congestive) heart failure; I11.0 Hypertensive heart disease with heart failure
CPT/HCPCS: 80053

== ENCOUNTER → 2018-03-31 | Outpatient (CLI) | payer MEDICARE ==
[2018-03-31 15:43] LABS: ANION GAP 7 MEQ/L (8-16); BLOOD UREA NITROGEN 30 MG/DL (7-18); CALCIUM LEVEL 8.5 MG/DL (8.8-10.2); CARBON DIOXIDE LEVEL 26 MEQ/L (21-32); CHLORIDE LEVEL 112 MEQ/L (98-107); CREATININE FOR GFR 1.07 MG/DL (0.70-1.30); GLOMERULAR FILTRATION RATE > 60.0 (>42); GLUCOSE, FASTING 100 MG/DL (70-100); SODIUM LEVEL 145 MEQ/L (136-145)
[2018-03-31 15:44] LABS: POTASSIUM SERUM 5.2 MEQ/L (3.5-5.1)
== END ==
LOC: M LAB 14:38
DX: I42.9 Cardiomyopathy, unspecified (principal); I10 Essential (primary) hypertension
CPT/HCPCS: 80048

== ENCOUNTER 2018-10-12 14:02 | Inpatient (IN) | payer MEDICARE ==
[~2018-10-12] VITALS: Ht 180.3 cm; Wt 119.0 kg
[2018-10-12] MEDS: ATENOLOL 25 MG TAB PO SCH (09:00)
[2018-10-12] MEDS: CYANOCOBALAMIN 500 MCG TAB PO SCH (09:00)
[2018-10-12] MEDS: VITAMIN D 1,000 INTERNATIONAL UNITS TABLET PO SCH (09:00)
[2018-10-12] MEDS: MULTIVITAMINS/MINERALS THERAP 1 TAB PO SCH (09:00)
[2018-10-12] MEDS: OMEPRAZOLE 20 MG CAP PO SCH (09:00)
[2018-10-12] MEDS: DIGOXIN 0.125 MG TAB PO SCH (09:00)
[2018-10-12] MEDS: FERROUS SULFATE 325MG TAB PO SCH (09:00)
[2018-10-12] MEDS: FINASTERIDE 5 MG TAB PO SCH (09:00)
[2018-10-12] MEDS: FOLIC ACID 1 MG TAB PO SCH (09:00)
[~2018-10-12 14:02] MED LIST changes: +FERR1TAB8 PO; -FERR325T PO; -FOLI1TAB2 PO; +FOLI1TAB5 PO; +LEVA1TAB2 PO; -LEVA500T PO; -LIDOCAINE 2% INJ 100 MG/5 ML SDV (FOR ANES.) As Ordered ONE; +LOSA-4 PO; -LOSA100T36 PO; -NS 1,000 ML IV SCH; -PANT40TA2 PO; +PANT40TA3 PO; -PROPOFOL 200 MG/20 ML VIAL As Ordered ONE
[2018-10-12 15:08] LABS: BASO % 0.1 % (0.0-1.0); EOS % 0.1 % (0.0-3.0); HEMATOCRIT 38.9 % (42.0-52.0); LYMPH # 0.3 10^3/uL (1.5-4.5); MEAN CORPUSCULAR HEMOGLOBIN 26.3 pg (27.0-33.0); MEAN CORPUSCULAR HGB CONC 33.4 g/dl (32.0-36.5); MEAN CORPUSCULAR VOLUME 78.6 fl (80.0-96.0); MONO # 1.7 10^3/uL (0.0-0.8); MONO % 9.6 % (0.0-5.0); NEUTROPHILS # 15.2 10^3/uL (1.8-7.7); NEUTROPHILS % 87.6 % (36.0-66.0); PLATELET COUNT, AUTOMATED 145 10^3/uL (150-450); RED BLOOD COUNT 4.95 10^6/uL (4.30-6.10); WHITE BLOOD COUNT 17.3 10^3/uL (4.0-10.0)
[2018-10-12 15:26] LABS: INR 1.21; PROTHROMBIN TIME 15.4 SECONDS (12.1-14.4)
[2018-10-12 15:27] LABS: PARTIAL THROMBOPLASTIN TIME 38.7 SECONDS (25.4-37.6)
--- NOTE | 2018-10-12 15:45 | REP ---
Portable chest x-ray: Sitting AP view. History: Chest pain. Comparison chest x-ray: December 05, 2016. Findings: EKG monitoring electrodes overlie the chest. The patient is status post prior median sternotomy. Lungs are symmetrically aerated and clear. Heart is not enlarged. Pulmonary vasculature is not increased. Impression: Prior sternotomy. No acute disease. Electronically Signed by Naga Frias MD 10/12/2018 06:20 P
[2018-10-12 15:49] LABS: ALBUMIN 3.7 GM/DL (3.2-5.2); ALT/SGPT 39 U/L (12-78); BILIRUBIN,DIRECT 0.5 MG/DL (0.0-0.2); BLOOD UREA NITROGEN 36 MG/DL (7-18); CALCIUM LEVEL 8.7 MG/DL (8.8-10.2); CARBON DIOXIDE LEVEL 24 MEQ/L (21-32); CHLORIDE LEVEL 94 MEQ/L (98-107); CPK CREATINE PHOSPHOKINASE 294 U/L (39-308); CREATININE FOR GFR 1.77 MG/DL (0.70-1.30); FREE T4 1.19 NG/DL (0.76-1.46); GLOMERULAR FILTRATION RATE 40.1 (>42); GLUCOSE, FASTING 116 MG/DL (70-100); MB/CK RELATIVE INDEX 0.34 (< OR =4); NT-PRO BNP 491 PG/ML (<450); POTASSIUM SERUM 3.7 MEQ/L (3.5-5.1); SODIUM LEVEL 131 MEQ/L (136-145); THYROID STIMULATING HORMONE 0.638 uIU/ML (0.358-3.740); TOTAL PROTEIN 6.6 GM/DL (6.4-8.2); TROPONIN I < 0.02 NG/ML (< 0.10)
--- NOTE | 2018-10-12 16:25 | REP ---
Clinical: Acute abdominal pain. Comparison: 12/05/2016. Findings: Acute inflammatory changes are appreciated along the left perirectal space in the peroneum along with a well-circumscribed ovoid collection measuring approximately 7.0 x 2.9 x 3.2 cm consistent with phlegmon/perirectal abscess (images [id number]). Hepatic splenomegaly is appreciated. The patient is status post cholecystectomy. Pancreas and bilateral adrenal glands are normal. Kidneys demonstrate moderate perinephric stranding along with bilateral hypodensities consistent with cysts - the largest of which is noted in the left upper pole and measures 8.3 cm maximal diameter. There is no evidence for hydroureteronephrosis. The enteric system is without obstruction or acute inflammatory process. Colonic and sigmoid diverticulosis noted without acute diverticulitis. Evaluation the pelvis demonstrates normal bladder and age appropriate prostate/seminal vesicles. Atherosclerotic changes of the aorta and vasculature without aneurysm. Osseous structures demonstrate diffuse mottled heterogeneous density which is nonspecific but raises the possibility of underlying diffuse metastatic disease including possible prostate as a source. Impression: 1. Left perirectal abscess/phlegmon and surrounding inflammatory changes. 2. Chronic changes to the kidneys including moderate perinephric stranding and hypodensities up to 8.3 cm consistent with cysts. 3. Diverticulosis without acute diverticulitis. 4. A hazy increased density with heterogeneous changes throughout the osseous structures is appreciated and while this may represent chronic age-related changes, diffuse osseous metastatic disease cannot be excluded and may warrant consideration. Electronically Signed by Marshall Hatch MD 10/12/2018 04:16 P
[2018-10-12] MEDS ORDERED: OMEP20CA3 PO (16:36)
[2018-10-12] MEDS ORDERED: PIPERACILLIN/TAZOBACTAM SOD 3.375 GM in D5W MINI-BAG PLUS 50 ML IV ONE (17:00)
[2018-10-12] MEDS ORDERED: RISATAB3 PO (17:19)
[2018-10-12] MEDS ORDERED: DIGO0.12 PO (17:19)
[2018-10-12] MEDS: NS 1,000 ML IV SCH (18:15)
--- NOTE | 2018-10-12 18:38 | CR ---
DATE OF MEDICAL CONSULTATION: 10/12/2018 77-year-old male with past medical history of hypertension, congestive heart failure (CHF), history of coronary artery disease, status post coronary artery bypass graft (CABG), and history of myocardial infarction who presents to the emergency room with difficulty sitting down and pain in his anal region. He also has generalized weakness for the past few days and a temperature of 100.4 at home. When he came to the ER he had a CT scan of the abdomen and pelvis which revealed a perirectal abscess. The general surgeon was called and took the patient as the primary. REASON FOR CONSULTATION: Medical management as well as acute kidney injury (IVAN). The patient at this time is pain free and denies any chest pain, shortness of breath, abdominal pain, nausea or vomiting, vertigo, headache or diarrhea. PAST MEDICAL HISTORY: Congestive heart failure. History of coronary artery disease, status post myocardial infarction (ND), status post CABG. History of hernia repair and cholecystectomy. Atrial fibrillation. ALLERGIES: No known drug allergies. FAMILY HISTORY: Noncontributory. SOCIAL HISTORY: Patient is a former smoker. He denies any active tobacco abuse, alcohol or illicit drug use. MEDICATIONS HE TAKES AT HOME: Are as follows: - aspirin 325 mg orally daily - atenolol 75 mg orally daily - colecalciferol 1000 units orally daily - cyanocobalamin 500 mcg orally daily - digoxin 0.125 mg orally daily - ferrous sulfate 325 mg orally daily - finasteride 5 mg orally daily - folic acid 1 mg orally daily - Lasix 80 mg orally daily - losartan 100 mg orally daily - multivitamin 1 tablet orally daily - omeprazole 20 mg orally daily - probiotic 1 tablet orally daily REVIEW OF SYSTEMS: Negative all 10 major systems except where it has been mentioned in HPI. VITALS: Temperature is 99.7, pulse 106 and regular. Respiratory rate 16, blood pressure is 129/58, pulse oximetry is 96% on room air. Head: Atraumatic. Normocephalic. Neck: Supple. No jugular venous distention (JVD). Lungs: Clear to auscultation. S1, S2 audible. No murmurs appreciated. Abdomen: Soft, positive bowel sounds. No pedal edema. Skin: Intact. Neurological examination: Patient awake, alert and oriented times three. LABS: Sodium 131, potassium 3.7, chloride 94, CO2 24, BUN 36, creatinine 1.77. AST 36, ALT 39. Troponin is less than 0.02. TSH 0.638. BNP is 491. WBC 17.3, hemoglobin 13, hematocrit 38.9. Platelets 145,000. INR is 1.21. PT is 15.4, APTT is 38.7. IMPRESSION: 1. Perirectal abscess. 2. Acute kidney injury. 3. Erskine fibrillation. PLAN: Patient is to continue his current drug regimen from home. I am going to hold his aspirin in anticipation of the surgery. As far as the IVAN is concerned he is on large amounts of diuretics and angiotensin-converting enzyme (QUINTON) inhibitor. I am going to hold both for now and gentle hydration with normal saline at 75 mL an hour. Patient is medially optimized. He is moderate risk for low risk procedure. Will continue following his care along side surgery.
[2018-10-12] MEDS ORDERED: MORPHINE 4 MG/ML 1ML VIAL/SYRINGE (J2270) IV PRN ×2 (20:15)
[2018-10-12] MEDS ORDERED: ONDANSETRON 4MG/2ML VIAL (J2405) IV PRN ×2 (20:15→23:00)
[2018-10-12] MEDS ORDERED: ACETAMINOPHEN TAB 650MG DOSE (2X325MG) PO PRN (20:15)
--- NOTE | 2018-10-12 20:57 | HPE ---
DATE OF ADMISSION: 10/12/2018 ADMISSION DIAGNOSIS: Recurrent left perirectal abscess. HISTORY OF PRESENT ILLNESS: The patient is a pleasant 72-year-old who presented to the emergency department by way of urgent care because of feeling weak with poor appetite. He apparently was seen at an Urgent Care Center where he was told he was in atrial fibrillation and he was advised to come to the emergency department. In the emergency department he apparently also complained of pain in the left perianal area with sitting. He has a history in November 2016 left sided perirectal abscess which was treated with percutaneous drainage and antibiotic therapy. The patient has not had any obvious fevers or chills. He does report that the pain in the perirectal area has been increasing over perhaps 3-4 days. He underwent evaluation with a CT scan of the abdomen and pelvis which disclosed a left perirectal abscess. Comparison to a CT scan from November 2016 revealed that this was almost identical in location and size, though the current abscess maybe slightly more prominent. The patient was found to be in atrial fibrillation but this is not a new problem. He also has a history of coronary artery disease and congestive heart failure. He was seen in the emergency department by Dr. Martinez of the hospitalist service for preoperative recommendation and apparently has been found to be an acceptable risk for surgery. He is now being admitted for surgical drainage of his perirectal abscess. ALLERGIES: The patient reports NO KNOWN DRUG ALLERGIES. CURRENT MEDICATIONS: - aspirin 325 mg by mouth daily - atenolol 75 mg by mouth daily - cholecalciferol 1000 units by mouth daily - cyanocobalamin 500 mcg by mouth daily - digoxin 0.125 mg by mouth daily - ferrous sulfate 325 mg by mouth daily - finasteride 5 mg by mouth daily - folic acid 1 mg by mouth daily - furosemide 80 mg by mouth daily - losartan 100 mg by mouth daily - multivitamin by mouth daily - omeprazole 20 mg by mouth daily - Alva-Bid probiotic 1 tablet by mouth daily SURGICAL HISTORY: Is significant for a left inguinal hernia at about age 20. He has had hemorrhoids treated surgically. He has undergone an EGD and colonoscopy some years ago. He has a history of coronary artery bypass grafting in about 2003. This apparently followed an PA. He has had a cholecystectomy via an open approach. MEDICAL HISTORY: The patient has a history of a myocardial infarction. He underwent a coronary artery bypass grafting. An echocardiogram from 15 years ago suggested an ejection fraction of 30% with systolic congestive heart failure. I do not have any more recent studies available and do not really know if he has had any other more recent studies. He denies any chest pain or shortness of breath at baseline. The patient does have known atrial fibrillation, been on medications for this. He has a history of hypertension and hypertensive heart disease. He does have a history of benign prostatic hyperplasia and has had a TURP. He apparently is likely to have sleep apnea but has declined any sleep study or consideration of C-PAP. He does have a diagnosis of celiac disease based on a 15-year-old EGD with biopsy. SOCIAL HISTORY: The patient is . He is a former smoker but denies any tobacco use in 35-40 years. Ethanol use is occasional. FAMILY HISTORY: Reveals no concerning heritable illnesses. REVIEW OF SYSTEMS: Reveals no history of chest pain or palpitations. He denies any history of TIA or stroke. He has not noticed any unplanned weight loss or gain. He denies dysuria or hematuria. He has had no melena or hematochezia, though in the distant past he had an episode of significant rectal bleeding for which an etiology was not identified, though he required blood transfusions. He was treated for this at [facility] in [place]. He denies any significant bone or joint issues. There is no history of DVT or pulmonary embolus. PHYSICAL EXAMINATION: Reveals that the patient is awake and alert. He is lying quietly on the ER stretcher. Most recent temperature was 99.7. Pulse is in the low 80s and his blood pressure is in the 110s. Room air pulse oximetry is in the low to mid 90s. Skin: Is warm and dry. Sclerae are anicteric. Mucous membranes are moist. The neck is without mass or bruit. Heart exam shows currently a regular rhythm in the low 80s. Lungs: Show somewhat distant breath sounds bilaterally but they are clear. The abdomen is quite protuberant and obese. He has a well-healed right subcostal scar. He has active bowel sounds. The abdomen is soft and without significant tenderness. The patient has palpable radial and dorsalis pedis pulses bilaterally. There is no lower extremity edema. Examination of the perineum shows some induration and mild tenderness in a left posterolateral perirectal position. LABORATORY STUDIES; Show a CBC with a white count of 17 and differential showing 80, 8% neutrophils, 2% lymphocytes and 10% monocytes. His hemoglobin is 13 with a hematocrit of 39 and a platelet count is 145,000. Chemistry profile shows a sodium of 131, potassium 3.7, chloride 94, CO2 of 24, BUN of 36, creatinine of 1.8 and glucose of 116. His liver function tests are not significantly abnormal. He has a BNP of 491. TSH and free T4 are normal. A troponin level is less than 0.02. His coagulation studies show a PT of 15, INR of 1.2 and an APTT of 39. IMAGING STUDIES: Includes a chest x-ray which was interpreted as showing a prior sternotomy with no acute disease. The CT scan of the abdomen and pelvis revealed a left perirectal abscess. There was a large cyst in the left kidney. He had some diverticulosis noted. He has clips in the gallbladder fossa consistent with prior cholecystectomy.. The radiologist also reported a hazy increased density with heterogeneous changes throughout the osseous structures which could be age related to or could represent diffuse metastatic disease. IMPRESSION: 1. Left perirectal abscess. 2. Chronic atrial fibrillation. 3. Congestive heart failure. 4. Coronary artery disease status post myocardial infarction and status post coronary artery bypass grafting. 5. Obesity. PLAN: The patient is being admitted for surgical drainage of his perirectal abscess. He was counseled for the procedure to include the risks and possible benefits. Given his other underlying medical condition and his elevated white blood count. He will be continued on some IV antibiotics and I would anticipate a hospital stay of approximately 2 days. He has been seen by Dr. Martinez of the hospitalist service who has recommended continuing his usual medications with the exception of his Lasix and his QUINTON inhibitor for now. The patient will be taken to the operating room later this evening. He has been nothing by mouth during the course of the day and will be continued in an nothing by mouth status mass until after the surgery.
[2018-10-12] MEDS ORDERED: BUPIVACAINE HCL 0.5% 30 ML VIAL As Ordered ONE (21:33)
[2018-10-12] MEDS ORDERED: BUPIVACAINE LIPOSOME/PF 1.3% 20ML VIAL (13.3MG/ML)(EXPAREL)(C9290 PER1MG) As Ordered ONE (21:33)
[2018-10-12] MEDS ORDERED: fentaNYL 100 MCG/2 ML INJECTION (J3010) As Ordered ONE ×2 (22:32→22:38)
[2018-10-12] MEDS ORDERED: PROPOFOL 200 MG/20 ML VIAL As Ordered ONE (22:32)
[2018-10-12] MEDS ORDERED: MIDAZOLAM INJ 2 MG/2 ML VIAL (J2250) As Ordered ONE (22:32)
[2018-10-12] MEDS ORDERED: LIDOCAINE 2% INJ 100 MG/5 ML SDV (FOR ANES.) As Ordered ONE (22:32)
[2018-10-12] MEDS ORDERED: dexameTHASONE 4 MG/ML 1ML VIAL (J1100) As Ordered ONE (22:32)
[2018-10-12] MEDS ORDERED: METOCLOPRAMIDE INJ 10MG/2ML VIAL (J2765) As Ordered ONE (22:32)
[2018-10-12] MEDS ORDERED: ONDANSETRON 4MG/2ML VIAL (J2405) As Ordered ONE (22:32)
[2018-10-12] MEDS ORDERED: PERCOCET 5MG/325MG TAB PO PRN (23:00)
[2018-10-12] MEDS ORDERED: fentaNYL 100 MCG/2 ML INJECTION (J3010) IV PRN (23:00)
[2018-10-12] MEDS ORDERED: HYDROMORPHONE HCL 0.5 MG/ 0.5 ML SYRINGE (J1170 PER 1) IV PRN (23:00)
[2018-10-12] MEDS ORDERED: LR 1,000 ML IV SCH (23:00)
[2018-10-12] MEDS ORDERED: ZOSYN 3.375 GM VIAL (J2543) As Ordered ONE (23:13)
[2018-10-12] MEDS: PIPERACILLIN/TAZOBACTAM SOD 3.375 GM in D5W MINI-BAG PLUS 50 ML IV SCH (23:15)
[2018-10-12 23:50] VITALS: BP 122/58
[2018-10-13] VITALS (10 sets, daily range): BP systolic 109–128; BP diastolic 21–69
[2018-10-13] MEDS: NORCO, ANEXSIA 5/325MG TABLET (HYDROcodone/ACETAMINOPHEN) PO PRN ×3 (02:05→10:33)
[2018-10-13] MEDS: PIPERACILLIN/TAZOBACTAM SOD 3.375 GM in D5W MINI-BAG PLUS 50 ML IV SCH ×4 (05:05→23:58)
[2018-10-13] MEDS: NS 1,000 ML IV SCH ×2 (07:35→15:43)
[2018-10-13 08:24] LABS: HEMATOCRIT 38.7 % (42.0-52.0); HEMOGLOBIN 12.9 g/dl (13.5-17.5); MEAN CORPUSCULAR HEMOGLOBIN 26.5 pg (27.0-33.0); MEAN CORPUSCULAR HGB CONC 33.3 g/dl (32.0-36.5); MEAN CORPUSCULAR VOLUME 79.5 fl (80.0-96.0); PLATELET COUNT, AUTOMATED 139 10^3/uL (150-450); RED BLOOD COUNT 4.87 10^6/uL (4.30-6.10); WHITE BLOOD COUNT 12.1 10^3/uL (4.0-10.0)
[2018-10-13 08:44] LABS: CALCIUM LEVEL 8.7 MG/DL (8.8-10.2); CREATININE FOR GFR 1.55 MG/DL (0.70-1.30); GLOMERULAR FILTRATION RATE 46.8 (>42); POTASSIUM SERUM 3.7 MEQ/L (3.5-5.1)
[2018-10-13] MEDS: ATENOLOL 25 MG TAB PO SCH (08:51)
[2018-10-13] MEDS: FERROUS SULFATE 325MG TAB PO SCH (08:52)
[2018-10-13] MEDS: VITAMIN D 1,000 INTERNATIONAL UNITS TABLET PO SCH (08:52)
[2018-10-13] MEDS: FINASTERIDE 5 MG TAB PO SCH (08:52)
[2018-10-13] MEDS: OMEPRAZOLE 20 MG CAP PO SCH (08:52)
[2018-10-13] MEDS: DIGOXIN 0.125 MG TAB PO SCH (08:52)
[2018-10-13] MEDS: FOLIC ACID 1 MG TAB PO SCH (08:52)
[2018-10-13] MEDS: CYANOCOBALAMIN 500 MCG TAB PO SCH (08:52)
[2018-10-13] MEDS: MULTIVITAMINS/MINERALS THERAP 1 TAB PO SCH (08:52)
[2018-10-13] MEDS: DOCUSATE SODIUM 100 MG CAP PO SCH ×2 (08:52→21:39)
[2018-10-13 08:54] LABS: LYMPHOCYTES 7 % (16-52); MONOCYTES 1 % (0-8); NEUTROPHILS 92 % (35-75)
[2018-10-13 08:55] LABS: PLATELET ESTIMATE NORMAL (NORMAL)
[2018-10-13] MEDS ORDERED: FLUBLOK(EGG FREE)(QUAD)INFLUENZA VACC 0.5ML SYRINGE (90682)18YRS&OLDER IM ONE (09:00)
[2018-10-13] MEDS ORDERED: PREVNAR 13 VACCINE SYRINGE (CPT CODE:90670) IM ONE (09:00)
--- NOTE | 2018-10-13 09:21 | IPNPDOC ---
Subjective Date Seen The patient was seen on 10/13/18. Subjective Chief Complaint/HPI Pt this morning without new concerns. He reports pain only at the site of the incision. General: Denies: Fatigue Constitutional: Denies: Chills, Fever Pulmonary: Denies: Dyspnea, Cough Cardiovascular: Denies: Chest Pain, Palpitations Gastrointestinal: Denies: Nausea, Vomiting, Abdominal Pain, Diarrhea Musculoskeletal: Denies: Neck Pain Neurological: Denies: Weakness Psych: Reports: Mood Normal Objective Physical Examination General Exam: Positive: Alert, Cooperative, No Acute Distress ENT Exam: Positive: Mucous membr. moist/pink Neck Exam: Positive: Supple; Negative: JVD Chest Exam: Positive: Clear to auscultation, Normal air movement, Diminished Heart Exam: Positive: Rate Normal, Normal S1, Normal S2 Abdomen Exam: Positive: Normal bowel sounds, Soft; Negative: Tenderness Extremity Exam: Negative: Edema Neuro Exam: Positive: Normal Speech Psych Exam: Positive: Mental status NL, Mood NL Assessment /Plan Problems (1) Gretchen-rectal abscess Status: Acute Response to Treatment: Stable Discussed With: Nurse, Patient Problem Specific Plan: Consult Specialist, Monitor Clinically, Repeat Labs Problem Text: Mgmt per GS, I&D 10/12. Afebrile, WBC down from 17 to 12. Wound cultures pending. Zosyn D2. (2) HTN (hypertension) Status: Chronic Response to Treatment: Stable Problem Specific Plan: Monitor Clinically Problem Text: Pressures stable. Lasix and losartan held, monitor pressures. (3) CAD (coronary artery disease) Status: Chronic Response to Treatment: Stable Problem Specific Plan: Monitor Clinically Problem Text: Cont with ASA, Atenolol, Dig. (4) Acute kidney injury Status: Acute Response to Treatment: Improving Problem Specific Plan: Monitor Clinically, Repeat Labs Problem Text: Scr improving, will d/c IVF. Lasix, losartan both held. Tolerating Reg diet. (5) CHF (congestive heart failure) Status: Chronic Problem Specific Plan: Monitor Clinically Problem Text: Appears compensated, Lasix on hold, monitor closely. He is tolerating a regular diet, will d/c IVF. Plan/VTE VTE Prophylaxis Ordered?: Yes VS, I&O, 24H, Fishbone Vital Signs/I&O Vital Signs Date Time Temp Pulse Resp B/P (MAP) Pulse Ox O2 Delivery O2 Flow Rate FiO2 12/28/18 08:52 68 10/13/18 08:51 125/64 10/13/18 07:49 97 Nasal Cannula 2.0 10/13/18 06:40 20 10/13/18 05:00 96.8 I&O- Last 24 Hours up to 6 AM 10/13/18 06:00 Intake Total 1100 ml Output Total 500 ml Balance 600 ml Laboratory Data 24H LABS Laboratory Tests 2 10/12/18 14:46: Immature Granulocyte % (Auto) 0.6, White Blood Count 17.3H, Red Blood Count 4 .95, Hemoglobin 13.0L, Hematocrit 38.9L, Mean Corpuscular Volume 78.6L, Mean Corpuscular Hemoglobin 26.3L, Mean Corpuscular Hemoglobin Concent 33.4, Red Cell Distribution Width 14.6H, Platelet Count 145L, Neutrophils (%) (Auto) 87.6H, Lymphocytes (%) (Auto) 2.0L, Monocytes (%) (Auto) 9.6H, Eosinophils (%) (Auto) 0.1, Basophils (%) (Auto) 0.1, Neutrophils # (Auto) 15.2H, Lymphocytes # (Auto) 0.3L, Monocytes # (Auto) 1.7H, Eosinophils # (Auto) 0.0, Basophils # (Auto) 0.0, Nucleated Red Blood Cells % (auto) 0.0, Prothrombin Time 15.4H, Prothromb Time International Ratio 1.21, Activated Partial Thromboplast Time 38.7H, Anion Gap 13, Glomerular Filtration Rate 40.1L, Calcium Level 8.7L, Aspartate Amino Transf (AST/SGOT) 36, Alanine Aminotransferase (ALT/SGPT) 39, Alkaline Phosphatase 145H, Total Bilirubin 1.0, Direct Bilirubin 0.5H, Total Creatine Kinase 294, Creatine Kinase MB 1.0, Creatine Kinase MB Relative Index 0.34, Troponin I < 0.02, ER-Ztz-[id number]-Type Natriuretic Peptide 491H, Total Protein 6.6, Albumin 3.7, Albumin/Globulin Ratio 1.28, Thyroid Stimulating Hormone (TSH) 0.638, Free Thy roxine 1.19 10/13/18 08:11: Nucleated Red Blood Cells % (auto) 0.0, Anion Gap 11, Glomerular Filtration Rate 46.8, Calcium Level 8.7L, Neutrophils 92H, Lymphocytes (Manual) 7L, Monocytes (Manual) 1, Platelet Estimate NORMAL, Red Blood Cell Morphology NORMAL, Blood Urea Nitrogen 40H, Creatinine 1.55H, Sodium Level 137, Potassium Level 3.7, Chloride Level 102, Carbon Dioxide Level 24 CBC/BMP Laboratory Tests 10/12/18 14:46 Red Blood Count 4.95, Mean Corpuscular Volume 78.6 L, Mean Corpuscular Hemoglobin 26.3 L, Mean Corpuscular Hemoglobin Concent 33.4, Red Cell Distribution Width 14.6 H, Neutrophils (%) (Auto) 87.6 H, Lymphocytes (%) (Auto) 2.0 L, Monocytes (%) (Auto) 9.6 H, Eosinophils (%) (Auto) 0.1, Basophils (%) (Auto) 0.1, Neutrophils # (Auto) 15.2 H, Lymphocytes # (Auto) 0.3 L, Monocytes # (Auto) 1.7 H, Eosinophils # (Auto) 0.0, Basophils # (Auto) 0.0 10/13/18 08:11 Red Blood Count 4.87, Mean Corpuscular Volume 79.5 L, Mean Corpuscular Hemoglobin 26.5 L, Mean Corpuscular Hemoglobin Concent 33.3, Red Cell Distrib ution Width 14.7 H, Calcium Level 8.7 L Microbiology Microbiology 10/12/18 Anaerobic Culture, Received Pending 10/12/18 Gram Stain, Received Pending 10/12/18 Abscess Culture, Received Pending DANNY WELDON PA-C Oct 13, 2018 09:21
[2018-10-13] MEDS: ENOXAPARIN 30 MG/0.3 ML SYR (J1650) SC SCH (10:19)
--- NOTE | 2018-10-13 11:05 | ECGEPIP ---
Stationary ECG Study [facility] - ED Test Date: 2018-10-12 Pat Name: SHANTE FLETCHER Department: Room: - Gender: M Floor Waxer: ABRAHAM : 1940 Requested By: Velvet Burkett Order Number: [id number] Reading MD: Pepe Montoya Measurements Intervals [place] Rate: 106 P: CT: 0 QRS: 74 QRSD: 115 T: 41 QT: 330 QTc: 438 Interpretive Statements ATRIAL FIBRILLATION WITH RAPID VENTRICULAR RESPONSE WITH ABERRANT CONDUCTION OR VENTRICULAR PREMATURE COMPLEXES MODERATE INTRAVENTRICULAR CONDUCTION DELAY SIMILAR TO 12/05/16 Electronically Signed On 10-13-2018 11:05:35 EST by Pepe Montoya
[2018-10-14 05:20] VITALS: BP 146/67
[2018-10-14] MEDS: PIPERACILLIN/TAZOBACTAM SOD 3.375 GM in D5W MINI-BAG PLUS 50 ML IV SCH ×2 (05:44→11:47)
[2018-10-14 06:52] LABS: BASO % 0.1 % (0.0-1.0); HEMATOCRIT 35.8 % (42.0-52.0); HEMOGLOBIN 11.8 g/dl (13.5-17.5); LYMPH # 0.5 10^3/uL (1.5-4.5); LYMPH % 3.7 % (24.0-44.0); MEAN CORPUSCULAR HEMOGLOBIN 26.3 pg (27.0-33.0); MEAN CORPUSCULAR VOLUME 79.7 fl (80.0-96.0); MONO # 1.1 10^3/uL (0.0-0.8); MONO % 8.6 % (0.0-5.0); NEUTROPHILS # 10.6 10^3/uL (1.8-7.7); NEUTROPHILS % 87.2 % (36.0-66.0); PLATELET COUNT, AUTOMATED 184 10^3/uL (150-450); RED BLOOD COUNT 4.49 10^6/uL (4.30-6.10); WHITE BLOOD COUNT 12.2 10^3/uL (4.0-10.0)
[2018-10-14 07:12] LABS: ALBUMIN 2.9 GM/DL (3.2-5.2); ALT/SGPT 31 U/L (12-78); BILIRUBIN,TOTAL 0.4 MG/DL (0.2-1.0); BLOOD UREA NITROGEN 42 MG/DL (7-18); CALCIUM LEVEL 8.3 MG/DL (8.8-10.2); CARBON DIOXIDE LEVEL 25 MEQ/L (21-32); CHLORIDE LEVEL 108 MEQ/L (98-107); CREATININE FOR GFR 1.24 MG/DL (0.70-1.30); GLOMERULAR FILTRATION RATE > 60.0 (>42); GLUCOSE, FASTING 114 MG/DL (70-100); POTASSIUM SERUM 3.6 MEQ/L (3.5-5.1); SODIUM LEVEL 140 MEQ/L (136-145); TOTAL PROTEIN 6.3 GM/DL (6.4-8.2)
[2018-10-14] MEDS: DIGOXIN 0.125 MG TAB PO SCH (08:39)
[2018-10-14] MEDS: FINASTERIDE 5 MG TAB PO SCH (08:39)
[2018-10-14] MEDS: OMEPRAZOLE 20 MG CAP PO SCH (08:39)
[2018-10-14] MEDS: CYANOCOBALAMIN 500 MCG TAB PO SCH (08:39)
[2018-10-14] MEDS: MULTIVITAMINS/MINERALS THERAP 1 TAB PO SCH (08:39)
[2018-10-14] MEDS: FERROUS SULFATE 325MG TAB PO SCH (08:39)
[2018-10-14] MEDS: FOLIC ACID 1 MG TAB PO SCH (08:39)
[2018-10-14 08:40] VITALS: BP 137/64
[2018-10-14] MEDS: VITAMIN D 1,000 INTERNATIONAL UNITS TABLET PO SCH (08:40)
[2018-10-14] MEDS: DOCUSATE SODIUM 100 MG CAP PO SCH (08:40)
[2018-10-14] MEDS: ATENOLOL 25 MG TAB PO SCH (08:40)
[2018-10-14] MEDS: ENOXAPARIN 30 MG/0.3 ML SYR (J1650) SC SCH (08:41)
[2018-10-14 09:00] VITALS: BP 137/64
--- NOTE | 2018-10-14 10:41 | IPN ---
DATE: 10/13/2018 HISTORY: The patient is now postop day #1 from incision and drainage of a left ischiorectal abscess. He has a Sherly drain laced through two incisions in the left posterior lateral aspect of the perineum. There was some gauze also wicked into the wound to assist with hemostasis and keep the wound open. He reports fairly little discomfort this morning. VITAL SIGNS: Show that he has been afebrile since admission. His pulses in the 60s and he appears to be in sinus rhythm at this point. His respiratory rate is good. His blood pressure is fine. Intake and output shows that he has voided well today. He is taking liquids well as well. PHYSICAL EXAMINATION: The patient is alert and appears fairly comfortable. Heart exam shows a regular rhythm. The abdomen is obese and soft. Examination of the perineum shows that there is some sanguineous fluid on the current dressing. His wounds appear clean as can be expected with the Sherly in place. I removed the gauze wick which extended deeply into the abscess and he tolerated this well. LABS: Laboratory studies today showed a white count of 12, hemoglobin of 13, hematocrit of 39 and platelet count of 139,000. Differential count showed 92% neutrophils and 7% lymphocytes. Chemistry profile showed a normal set of electrolytes with BUN of 40 and creatinine of 1.55 which is slightly better than last night. His glucose was 141. IMPRESSION: The patient appears to be doing well now 1 day postop from drainage of his abscess. His white blood cell count has come down and his acute atrial fibrillation seems to have resolved. PLAN: His gauze wick was removed from the wound today. The Hilton will be left in place for now. He will be started on showers or soaks to his wound at least three times a day for 15 minutes each time. I will continue him on the Zosyn for at least another day and then it may be reasonable to consider discharge on oral antibiotics. I think I will leave the drain in place for now as well. He has been seen in followup by the family practice service who can assist in management of his cardiac issues as needed.
[2018-10-14] MEDS ORDERED: BACT800T5 PO (12:19)
[2018-10-14] MEDS ORDERED: NORCOTAB PO (12:19)
--- NOTE | 2018-10-14 15:19 | IPNPDOC ---
Subjective Date Seen The patient was seen on 10/14/18. Subjective Chief Complaint/HPI Patient seen and examined today at bedside. Denies fevers, chills, chest pain, SOB. Admits to 2-3/10 pain at perirectal abscess region moreso when he is sitting in a position or lying in a position that adds pressure to that area. Otherwise, not very painful. In addition, reports minimal drainage from site. Denies pus--just some blood this AM from site when nurse was changing dressing. General: Reports: Normal Appetite Constitutional: Denies: Chills, Fever ENT: Denies: Head Aches Skin: Reports: Other ((+)perirectal abscess L gluteal cleft. ); Denies: Rash Pulmonary: Denies: Dyspnea Cardiovascular: Denies: Chest Pain Gastrointestinal: Denies: Nausea, Vomiting, Abdominal Pain, Diarrhea, Constipation Genitourinary: Denies: Dysuria Hematologic: Denies: Bleeding Excessively Endocrine: Denies: Heat Intolerance, Cold Intolerance Musculoskeletal: Denies: Joint Pain, Muscle Pain Neurological: Denies: Weakness, Numbness, Confusion Psych: Reports: Mood Normal Objective Physical Examination General Exam: Positive: Alert, Cooperative, No Acute Distress Eye Exam: Positive: Conjunctiva & lids normal; Negative: Sclera icteric ENT Exam: Positive: Atraumatic Neck Exam: Positive: Supple Chest Exam: Positive: Clear to auscultation, Normal air movement; Negative: Rales, Rhonchi, Wheezing Heart Exam: Positive: Rate Normal, Regular Rhythm, Normal S1, Normal S2; Negative: Murmurs Abdomen Exam: Positive: Normal bowel sounds, Soft; Negative: Tenderness Extremity Exam: Negative: Clubbing, Cyanosis, Edema Skin Exam: Positive: Other skin issue ((+)wound/abscess site at L gluteal cleft is nonfluctuant with minimal erythema and no purulent drainage visible; mild tenderness to palpation at this site); Negative: Rash Neuro Exam: Positive: Normal Speech Psych Exam: Positive: Mental status NL, Mood NL, Oriented x 3 Assessment /Plan Problems (1) Gretchen-rectal abscess Status: Acute Response to Treatment: Stable Discussed With: Nurse, Patient Problem Specific Plan: Consult Specialist, Monitor Clinically, Repeat Labs Problem Text: 10/14: Examined site which looks to appropriate and not very erythematous nor having purulent drainage. Patient afebrile. WBC is still a bit up but mainly stable at 12.2 as it was 12.1 yesterday. Wound cx show: few WBCs, few RBCs, many gram (-) rods, few gram (+) cocci in clusters. Spoke to Dr. Hernandez this AM who was planning to d/c patient today on oral antibiotics. Mgmt per GS, I&D 10/12. Afebrile, WBC down from 17 to 12. Wound cultures pending. Zosyn D2. (2) HTN (hypertension) Status: Chronic Response to Treatment: Stable Problem Specific Plan: Monitor Clinically Problem Text: 10/14: BP stable and was 146/67 this AM. Later, it was 134/64. Continue to hold lasix and losartan. Pressures stable. Lasix and losartan held, monitor pressures. (3) CAD (coronary artery disease) Status: Chronic Response to Treatment: Stable Problem Specific Plan: Monitor Clinically Problem Text: Cont with ASA, Atenolol, Dig. (4) Acute kidney injury Status: Acute Response to Treatment: Improving Problem Specific Plan: Monitor Clinically, Repeat Labs Problem Text: 10/14: Resolved. Cr improved back to WNL at 1.24. Encourage PO hydration. Scr improving, will d/c IVF. Lasix, losartan both held. Tolerating Reg diet. (5) CHF (congestive heart failure) Status: Chronic Problem Specific Plan: Monitor Clinically Problem Text: Appears compensated, Lasix on hold, monitor closely. He is tolerating a regular diet, will d/c IVF. Plan/VTE VTE Prophylaxis Ordered?: Yes (Enoxaparin 30 mg SC daily) VS, I&O, 24H, Fishbone Vital Signs/I&O Vital Signs Date Time Temp Pulse Resp B/P (MAP) Pulse Ox O2 Delivery O2 Flow Rate FiO2 10/14/18 09:00 98.3 69 18 137/64 (88) 95 Room Air 10/13/18 14:00 2.0 I&O- Last 24 Hours up to 6 AM 10/14/18 06:00 Intake Total 1690 ml Output Total 1825 ml Balance -135 ml Laboratory Data 24H LABS Laboratory Tests 2 10/14/18 06:03: Immature Granulocyte % (Auto) 0.4, White Blood Count 12.2H, Red Blood Count 4.49, Hemoglobin 11.8L, Hematocrit 35.8L, Mean Corpuscular Volume 79.7L, Mean Corpuscular Hemoglobin 26.3L, Mean Corpuscular Hemoglobin Concent 33.0, Red Cell Distribution Width 14.8H, Platelet Count 184, Neutrophils (%) (Auto) 87.2H, Lymphocytes (%) (Auto) 3.7L, Monocytes (%) (Auto) 8.6H, Eosinophils (%) (Auto) 0.0, Basophils (%) (Auto) 0.1, Neutrophils # (Auto) 10.6H, Lymphocytes # (Auto) 0.5L, Monocytes # (Auto) 1.1H, Eosinophils # (Auto) 0.0, Basophils # (Auto) 0.0, Nucleated Red Blood Cells % (auto) 0.0, Anion Gap 7L, Glomerular Filtration Rate > 60.0, Blood Urea Nitrogen 42H, Creatinine 1.24, Sodium Level 140, Potassium Level 3.6, Chloride Level 108H, Carbon Dioxide Level 25, Calcium Level 8.3L, Aspartate Amino Transf (AST/SGOT) 20, Alanine Aminotransferase (ALT/SGPT) 31, Alkaline Phosphatase 104, Total Bilirubin 0.4#, Total Protein 6.3L, Albumin 2.9#L, Albumin/Globulin Ratio 0.85L CBC/BMP Laboratory Tests 10/14/18 06:03 Red Blood Count 4.49, Mean Corpuscular Volume 79.7 L, Mean Corpuscular Hemoglobin 26.3 L, Mean Corpuscular Hemoglobin Concent 33.0, Red Cell Distribution Width 14.8 H, Neutrophils (%) (Auto) 87.2 H, Lymphocytes (%) (Auto) 3.7 L, Monocytes (%) (Auto) 8.6 H, Eosinophils (%) (Auto) 0.0, Basophils (%) (Auto) 0.1, Neutrophils # (Auto) 10.6 H, Lymphocytes # (Auto) 0.5 L, Monocytes # (Auto) 1.1 H, Eosinophils # (Auto) 0.0, Basophils # (Auto) 0.0, Calcium Level 8 .3 L, Aspartate Amino Transf (AST/SGOT) 20, Alanine Aminotransferase (ALT/SGPT) 31, Alkaline Phosphatase 104, Total Bilirubin 0.4 #, Total Protein 6.3 L, Albumin 2.9 #L Microbiology Microbiology 10/12/18 Anaerobic Culture, Received Pending 10/12/18 Gram Stain - Final, Resulted 10/12/18 Abscess Culture, Resulted Pending GME ATTESTATION GME ATTESTATION My faculty preceptor for this patient encounter was Dr. Richar Walker, and was physically present during the encounter and was fully available. All aspects of the patient interview, examination, medical decision making process, and medical care plan development were reviewed and approved by the faculty preceptor. The faculty preceptor is aware and concurs with the plan as stated in the body of this note and will attest to such by his/her cosignature. GILBERTO REYES DO Oct 14, 2018 15:19
--- NOTE | 2018-10-17 13:19 | RO ---
DATE OF PROCEDURE: 10/12/2018 PREOPERATIVE DIAGNOSIS: Left ischiorectal abscess. POSTOPERATIVE DIAGNOSIS: Left ischiorectal abscess. PROCEDURE PERFORMED: Incision and drainage of left ischiorectal abscess. SURGEON: Dr. Kyle Malave MANAGER DIGITAL AD OPERATIONS: ANESTHESIA: General. INDICATIONS FOR PROCEDURE: The patient is a 77-year-old man who presented to the emergency room (ER) with several days of worsening perirectal pain on the left. He has had a previous left sided perirectal abscess in November 2016. A CT scan confirmed an abscess in this area. The patient was seen by medicine for preoperative evaluation and felt to be a low-risk and he is now for incision and drainage of his abscess. OPERATIVE PROCEDURE: The patient was brought to the operating room and placed on the table in a supine position. He was placed under general anesthesia with an LMA. He was moved into a lithotomy position with the lower extremities in padded leg holders. The perineum was prepped and draped sterilely. Examination revealed an area of induration in a left posterolateral position. If 12 o'clock was at the anterior midline, this would be at approximately the 3:30 to 5:30 position. There was no redness of the overlying skin and the skin itself was not indurated. Digital rectal examination confirmed some induration on the left. The right side was soft and without any thickening or induration. An 18 gauge spinal needle was inserted into this area of induration with return of some thick reddish brown pus. A small culture was obtained for aerobic and anaerobic culture. The electrocautery was then used to make a radial incision centered on the needle insertion site beginning just lateral to the sphincter mechanism. The incision was made approximately 1.5 to 2 cm in length. This was then deepened into the tissues using a clamp. Again, this was continued down along the shaft of the needle which had been left in place. A large abscess cavity was entered with the clamp with release of a large amount of purulence. The needle was then removed. The finger was used to dilate the tract. The abscess was at least 8-10 cm in depth and tracked up along the left lateral aspect of the rectum. Toward the top of the abscess, that is the superior most aspect of the abscess, this approached very closely to the wall of the rectum, but there was no palpable perforation. The abscess also extended posteriorly to about the posterior midline, but there was no evidence of tracking past the midline. It also extended outward from the rectum, perhaps 5 cm at about the 4:30 position. A second small incision was made at the outermost end of the abscess extension toward the left posterior position. A clamp was inserted through this opening and out through the initial drainage incision. A quarter-inch [place] drain was threaded from one hole out through the other and then tied outside the skin to prevent the drain from coming out. The skin edges at the initial incision site were trimmed back slightly on each side of the incision to prevent premature closure. The abscess cavity was gently wicked with a saline moistened gauze inserted alongside the Sherly drain. The patient tolerated the procedure well without apparent complication. A bulky bandage was applied to the perineum. He was awakened and extubated and moved to the recovery room in stable condition.
== END 2018-10-14 13:15 | disposition home or self-care (01) | DRG 345 ==
LOC: M ED 14:02 → M ED INP 20:06 → M MSPAV 23:45 → M MS4PR 10-13 20:23
PROVIDERS: ADMIT Surgery; ATTEND Surgery
PROC: 0D9P7ZZ Drainage of Rectum, Via Natural or Artificial Opening (ICD-10-PCS; principal; 2018-10-12 22:00)
DX: K61.1 Rectal abscess (principal); I50.22 Chronic systolic (congestive) heart failure; N17.9 Acute kidney failure, unspecified; Z79.82 Long term (current) use of aspirin; Z79.899 Other long term (current) drug therapy; I25.2 Old myocardial infarction; Z95.1 Presence of aortocoronary bypass graft; Z87.891 Personal history of nicotine dependence; I48.2 Chronic atrial fibrillation; E66.9 Obesity, unspecified

== ENCOUNTER 2019-02-13 07:18 | Emergency (ER) | payer MEDICARE ==
[~2019-02-13] VITALS: Ht 180.3 cm; Wt 124.1 kg
[2019-02-13 07:18] VITALS: BP 150/67
[~2019-02-13 07:18] MED LIST changes: +ASPI-1 PO; -ASPI325T PO; +BACT800T5 PO; +FOLI1TAB11 PO; -FOLI1TAB5 PO; +HYDR-3715 PO; -LOSA-4 PO; +LOSA100T50 PO; +OMEP20CA3 PO
[2019-02-13] MEDS ORDERED: TYLETAB14 PO (07:42)
[2019-02-13] MEDS ORDERED: CLIN150C14 PO (07:42)
[2019-02-13] MEDS ORDERED: CLINDAMYCIN 150 MG CAP PO ONE (07:45)
== END 2019-02-13 08:00 | disposition home or self-care (01) ==
LOC: M ED 07:51
DX: L05.91 Pilonidal cyst without abscess (principal); I10 Essential (primary) hypertension; Z86.69 Personal history of other diseases of the nervous system and sense organs; I25.2 Old myocardial infarction; Z95.1 Presence of aortocoronary bypass graft; Z87.891 Personal history of nicotine dependence; K21.9 Gastro-esophageal reflux disease without esophagitis; K90.0 Celiac disease; N40.0 Benign prostatic hyperplasia without lower urinary tract symptoms; M54.5 Low back pain; E34.9 Endocrine disorder, unspecified; F32.9 Major depressive disorder, single episode, unspecified; E53.8 Deficiency of other specified B group vitamins; Z79.899 Other long term (current) drug therapy; Z79.82 Long term (current) use of aspirin

== ENCOUNTER 2019-02-15 11:56 | Emergency (ER) | payer MEDICARE ==
[~2019-02-15] VITALS: Ht 180.3 cm; Wt 122.5 kg
[~2019-02-15 11:56] MED LIST changes: +CLIN150C14 PO; +TYLETAB14 PO
[2019-02-15] MEDS ORDERED: NORC1TAB7 PO (12:31)
[2019-02-15 12:42] VITALS: BP 134/65
== END 2019-02-15 12:52 | disposition home or self-care (01) ==
LOC: M ED 11:56
DX: L02.31 Cutaneous abscess of buttock (principal); I10 Essential (primary) hypertension; K21.9 Gastro-esophageal reflux disease without esophagitis; Z79.899 Other long term (current) drug therapy; Z79.82 Long term (current) use of aspirin

== ENCOUNTER 2019-09-17 09:12 | Emergency (ER) | payer MEDICARE ==
[~2019-09-17] VITALS: Ht 180.3 cm; Wt 128.5 kg
[~2019-09-17 09:12] MED LIST changes: +CYAN500T8 PO; +NORC1TAB7 PO; -OMEP20CA3 PO; +OMEP20CA4 PO; -VITA500T3 PO
[2019-09-17] MEDS ORDERED: LIDOCAINE 2% W/EPIN INJ 20ML **PRES FREE INJ ONE (09:30)
[2019-09-17 10:14] LABS: BASO % 0.2 % (0.0-1.0); EOS # 0.1 10^3/uL (0.0-0.5); EOS % 0.3 % (0.0-3.0); HEMATOCRIT 41.5 % (42.0-52.0); HEMOGLOBIN 12.9 g/dl (13.5-17.5); LYMPH # 0.8 10^3/uL (1.5-5.0); LYMPH % 4.8 % (24.0-44.0); MEAN CORPUSCULAR HEMOGLOBIN 26.9 pg (27.0-33.0); MEAN CORPUSCULAR HGB CONC 31.1 g/dl (32.0-36.5); MEAN CORPUSCULAR VOLUME 86.5 fl (80.0-96.0); MONO # 1.8 10^3/uL (0.0-0.8); NEUTROPHILS # 14.7 10^3/uL (1.5-8.5); PLATELET COUNT, AUTOMATED 188 10^3/uL (150-450); WHITE BLOOD COUNT 17.4 10^3/uL (4.0-10.0)
[2019-09-17 10:55] LABS: CALCIUM LEVEL 8.6 MG/DL (8.8-10.2); CREATININE FOR GFR 1.4 MG/DL (0.70-1.30); GLOMERULAR FILTRATION RATE 52.5 (>42); POTASSIUM SERUM 4.3 MEQ/L (3.5-5.1)
[2019-09-17] MEDS ORDERED: BACT800T5 PO (10:59)
[2019-09-17 11:04] VITALS: BP 132/72
[2019-09-17] MEDS ORDERED: NORC1TAB7 PO (11:07)
== END 2019-09-17 11:12 | disposition home or self-care (01) ==
LOC: M ED 09:12
DX: K61.1 Rectal abscess (principal); I50.9 Heart failure, unspecified; I25.2 Old myocardial infarction; K90.0 Celiac disease; F32.9 Major depressive disorder, single episode, unspecified; Z79.82 Long term (current) use of aspirin; Z79.899 Other long term (current) drug therapy; I25.10 Atherosclerotic heart disease of native coronary artery without angina pectoris; I11.0 Hypertensive heart disease with heart failure; Z95.1 Presence of aortocoronary bypass graft; K57.30 Diverticulosis of large intestine without perforation or abscess without bleeding

== ENCOUNTER 2019-09-17 21:24 | Emergency (ER) | payer MEDICARE ==
[~2019-09-17] VITALS: Ht 180.3 cm; Wt 118.2 kg
[2019-09-17 23:42] VITALS: BP 137/63
== END 2019-09-17 23:43 | disposition home or self-care (01) ==
LOC: M ED 21:24
DX: K61.1 Rectal abscess (principal); I25.10 Atherosclerotic heart disease of native coronary artery without angina pectoris; I50.9 Heart failure, unspecified; I25.2 Old myocardial infarction; I10 Essential (primary) hypertension; Z95.1 Presence of aortocoronary bypass graft; K57.30 Diverticulosis of large intestine without perforation or abscess without bleeding; Z79.82 Long term (current) use of aspirin; Z79.899 Other long term (current) drug therapy

== ENCOUNTER → 2020-02-13 | Outpatient (REF) | payer MEDICARE ==
[~2020-02-13] MED LIST changes: +DIGO0.123 PO; +OMEP1CAP73 PO; -OMEP20CA4 PO
== END ==
LOC: M LAB REF 13:42
PROVIDERS: ATTEND Surgery
DX: K61.0 Anal abscess (principal)

== ENCOUNTER → 2020-03-21 | Outpatient (REF) | payer MEDICARE ==
[2020-03-21 17:31] LABS: HEMATOCRIT 40.4 % (42.0-52.0); HEMOGLOBIN 12.2 g/dl (13.5-17.5); MEAN CORPUSCULAR HEMOGLOBIN 26.2 pg (27.0-33.0); MEAN CORPUSCULAR HGB CONC 30.2 g/dl (32.0-36.5); MEAN CORPUSCULAR VOLUME 86.9 fl (80.0-96.0); PLATELET COUNT, AUTOMATED 237 10^3/uL (150-450); RED BLOOD COUNT 4.65 10^6/uL (4.30-6.10); WHITE BLOOD COUNT 8.3 10^3/uL (4.0-10.0)
[2020-03-21 18:14] LABS: ALBUMIN 3.9 GM/DL (3.2-5.2); BILIRUBIN,TOTAL 0.7 MG/DL (0.2-1.0); CALCIUM LEVEL 8.9 MG/DL (8.8-10.2); CREATININE FOR GFR 1.7 MG/DL (0.70-1.30); FREE T4 1.06 NG/DL (0.76-1.46); GLOMERULAR FILTRATION RATE 41.8 (>42); POTASSIUM SERUM 4.6 MEQ/L (3.5-5.1); THYROID STIMULATING HORMONE 2.48 uIU/ML (0.358-3.740); TOTAL PROTEIN 6.9 GM/DL (6.4-8.2)
[2020-03-21 18:15] LABS: MALB URINE SIEMENS 9.3 MG/L; MAU/CREAT RATIO 6.6 MCG/MG (0.0-30.0)
== END ==
LOC: M SFHCADAM 14:08
PROVIDERS: ATTEND Family Medicine
DX: R60.9 Edema, unspecified (principal); I25.10 Atherosclerotic heart disease of native coronary artery without angina pectoris; I11.0 Hypertensive heart disease with heart failure; I50.22 Chronic systolic (congestive) heart failure; I48.91 Unspecified atrial fibrillation; N40.0 Benign prostatic hyperplasia without lower urinary tract symptoms

== ENCOUNTER → 2020-04-07 | Outpatient (REF) | payer MEDICARE ==
[2020-04-07 14:28] LABS: ALBUMIN 3.6 GM/DL (3.2-5.2); BILIRUBIN,TOTAL 0.5 MG/DL (0.2-1.0); CALCIUM LEVEL 8.6 MG/DL (8.8-10.2); CHOLESTEROL RISK RATIO 5.863 (<5); CREATININE FOR GFR 1.5 MG/DL (0.70-1.30); FREE T4 1.01 NG/DL (0.76-1.46); GLOMERULAR FILTRATION RATE 48.3 (>42); POTASSIUM SERUM 4.3 MEQ/L (3.5-5.1); THYROID STIMULATING HORMONE 2.75 uIU/ML (0.358-3.740); TOTAL PROTEIN 6.6 GM/DL (6.4-8.2)
== END ==
LOC: M SFHCADAM 11:51
PROVIDERS: ATTEND Physician Assistant
DX: I25.10 Atherosclerotic heart disease of native coronary artery without angina pectoris (principal); I48.91 Unspecified atrial fibrillation; I10 Essential (primary) hypertension; I50.22 Chronic systolic (congestive) heart failure; N40.0 Benign prostatic hyperplasia without lower urinary tract symptoms; N18.3 Chronic kidney disease, stage 3 (moderate)

== ENCOUNTER → 2020-04-17 | Outpatient (REF) | payer MEDICARE, OTHER ==
[2020-04-17 13:04] LABS: CALCIUM LEVEL 8.4 MG/DL (8.8-10.2); CREATININE FOR GFR 1.52 MG/DL (0.70-1.30); GLOMERULAR FILTRATION RATE 47.6 (>42); POTASSIUM SERUM 4.5 MEQ/L (3.5-5.1)
== END ==
LOC: M SFHCADAM 07:42
PROVIDERS: ATTEND Physician Assistant
DX: R60.9 Edema, unspecified (principal)

== ENCOUNTER 2020-05-01 08:18 | Emergency (ER) | payer MEDICARE, OTHER ==
[~2020-05-01] VITALS: Ht 180.3 cm; Wt 130.8 kg
[~2020-05-01 08:18] MED LIST changes: +PANT40TA29 PO; -PANT40TA3 PO
[2020-05-01] MEDS ORDERED: METO25TA (08:34)
[2020-05-01] MEDS ORDERED: SPIR-10 PO (08:34)
[2020-05-01] MEDS ORDERED: ISOVUE-370 76% 100ML VIAL As Ordered ONE (09:06)
[2020-05-01 09:28] LABS: BASO % 0.2 % (0.0-1.0); EOS # 0.1 10^3/uL (0.0-0.5); HEMATOCRIT 36.2 % (42.0-52.0); HEMOGLOBIN 11.4 g/dl (13.5-17.5); LYMPH # 0.7 10^3/uL (1.5-5.0); LYMPH % 6.8 % (24.0-44.0); MEAN CORPUSCULAR HEMOGLOBIN 26.8 pg (27.0-33.0); MEAN CORPUSCULAR HGB CONC 31.5 g/dl (32.0-36.5); MONO % 9.8 % (0.0-5.0); NEUTROPHILS # 8.6 10^3/uL (1.5-8.5); NEUTROPHILS % 81.6 % (36.0-66.0); PLATELET COUNT, AUTOMATED 172 10^3/uL (150-450); RED BLOOD COUNT 4.26 10^6/uL (4.30-6.10); WHITE BLOOD COUNT 10.6 10^3/uL (4.0-10.0)
--- NOTE | 2020-05-01 11:06 | REP ---
REASON FOR EXAM: Tender left buttock region. COMPARISON: 11/12/2017 The lack of oral bowel preparatory contrast decreases the sensitivity of the exam. IV CONTRAST: 100 mL Isovue 370. The imaged portions of the kidney show no changes from the prior exam. There are bilateral renal cysts of varying sizes. The imaged portion of the abdominal aorta and para-aortic regions are within normal limits. There is no evidence of free air. In the left hemipelvis in a left pararectal location, there is a fluid collection which measures approximately 4.5 x 2.2 x 4.9 cm and abuts the obturator internus and puborectalis muscles extending inferiorly into the left ischiorectal fossa where there is continued fatty infiltration. There is diffuse fatty infiltration of the perirectal adipose tissue seen on the left side to a greater degree than the right. When compared to the prior exam, this represents a similar appearance, however, it has increased. There is no florencio free pelvic fluid. There is no evidence of pelvic sidewall adenopathy. The osseous structures are unchanged. IMPRESSION: Left-sided pelvic/pararectal abscess as described above. Electronically Signed by Harley Thorpe DO 05/01/2020 11:29 A
[2020-05-01] MEDS ORDERED: VITMTA PO (12:35)
[2020-05-01] MEDS ORDERED: D31000TA2 PO (12:35)
[2020-05-01] MEDS ORDERED: PIPERACILLIN/TAZOBACTAM SOD 3.375 GM in D5W MINI-BAG PLUS 50 ML IV ONE (12:45)
[2020-05-01] MEDS ORDERED: NS 500 ML IV ONE (12:45)
[2020-05-01] MEDS ORDERED: AUGM875T28 PO (15:30)
[2020-05-01 15:31] VITALS: BP 144/58
[2020-05-02] MEDS ORDERED: AMOX875T2 PO (12:11)
== END 2020-05-01 15:41 | disposition left against medical advice (07) ==
LOC: M ED 08:18
DX: K61.1 Rectal abscess (principal); Z53.21 Procedure and treatment not carried out due to patient leaving prior to being seen by health care provider; I25.10 Atherosclerotic heart disease of native coronary artery without angina pectoris; I25.2 Old myocardial infarction; I11.0 Hypertensive heart disease with heart failure; K21.9 Gastro-esophageal reflux disease without esophagitis; Z95.1 Presence of aortocoronary bypass graft; Z87.891 Personal history of nicotine dependence; Z79.82 Long term (current) use of aspirin; Z79.899 Other long term (current) drug therapy
CPT/HCPCS: 72193; 80047; 85025; 96365; 99284; J2543; Q9967; U0002

== ENCOUNTER 2020-05-02 08:27 | Day surgery (SDC) | payer MEDICARE ==
[~2020-05-02] VITALS: Ht 179.1 cm; Wt 130.1 kg
[~2020-05-02 08:27] MED LIST changes: +AUGM875T28 PO; +D31000TA2 PO; +METO25TA; +SPIR-10 PO; +VITMTA PO
[2020-05-02] MEDS ORDERED: KETOROLAC 60MG 2ML VIAL IM ONE (09:00)
[2020-05-02 09:18] LABS: BASO % 0.2 % (0.0-1.0); EOS # 0.2 10^3/uL (0.0-0.5); EOS % 1.1 % (0.0-3.0); HEMATOCRIT 37.7 % (42.0-52.0); HEMOGLOBIN 11.8 g/dl (13.5-17.5); LYMPH # 0.7 10^3/uL (1.5-5.0); LYMPH % 5.6 % (24.0-44.0); MEAN CORPUSCULAR HEMOGLOBIN 26.9 pg (27.0-33.0); MEAN CORPUSCULAR HGB CONC 31.3 g/dl (32.0-36.5); MEAN CORPUSCULAR VOLUME 85.9 fl (80.0-96.0); MONO # 1.3 10^3/uL (0.0-0.8); NEUTROPHILS # 10.8 10^3/uL (1.5-8.5); NEUTROPHILS % 82.2 % (36.0-66.0); PLATELET COUNT, AUTOMATED 189 10^3/uL (150-450); RED BLOOD COUNT 4.39 10^6/uL (4.30-6.10); WHITE BLOOD COUNT 13.2 10^3/uL (4.0-10.0)
[2020-05-02] MEDS ORDERED: NS 1,000 ML IV ONE (09:45)
[2020-05-02] MEDS ORDERED: PIPERACILLIN/TAZOBACTAM SOD 3.375 GM in D5W MINI-BAG PLUS 50 ML IV ONE (09:45)
--- NOTE | 2020-05-02 11:55 | HPEPDOC ---
General Surgery H&P Date of Admission May 02, 2020 Attending Physician: KULDIP VERDUGO MD History and Physical CHIEF COMPLAINT: perianal pain HISTORY OF PRESENT ILLNESS: Patient presents with a four-day history of perianal pain worse with bowel movements particularly in the left side. He has had recurrent abscess and initially last year was being suspected for perianal fistula. This has been ongoing on and off for about 2 years now. He was actually in the emergency room yesterday and was seen by Dr. Fabian and was scheduled to have incision and drainage of the left perianal abscess in the emergency room but he couldn't wait any sign out AMA. Overnight he reports increasing pain. He had a bowel movement this morning which was soft and formed without any bleeding but patient had lots of pain following bowel movements that he return to the emergency room. He denies associated fevers or chills. Actually met him back in January this year and I drained a large perianal abscess on the left side. He was subsequently seen by my partner who further drainage about 3 weeks after. He tells me the incision site fully closed over the past 4 days has been again having pain and swelling of the area. ALLERGIES: Please see below. HOME MEDICATIONS: Please see below. Medical Problems: Hypertension Congestive Heart Failure Myocardial Infarction - HISTORY OF Benign Prostatic Hypertrophy Atrial Fibrillation Surgical Hx: Coronary Artery Bypass Graft (CABG), Removal of Gallbladder Hernia - AT 20YRS Hemorrhoidectomy, EGD&Colonoscopy, 10/12/18 incision and drainage of left ischiorectal abscess Prostate - Repair PERSONAL/SOCIAL HISTORY: Denies smoking, alcohol use, or recreational drug use. REVIEW OF SYSTEMS: GENERAL: Patient denies any fever, chills, abnormal weight loss. HEENT: Denies blurred vision and double vision. Denies ear symptoms. Denies hoarseness. NECK: Denies any neck pain. CARDIOVASCULAR: Denies chest pain and palpitations. MUSCULOSKELETAL: Denies arthralgias, back pain and thrombophlebitis. SKIN: Denies rash. NEUROLOGIC: Denies headache, stroke and transient ischemic attack. PSYCHIATRIC: Reports history of depression, claustrophobia. ENDOCRINE: Denies thyroid disease. HEMATOLOGY/ONCOLOGY: Denies any bleeding or clotting disorder. HEART: Denies any chest pains, palpitations, paroxysmal dyspnea, orthopnea. PULMONARY: Denies chronic cough, dyspnea and wheezing. GASTROINTESTINAL: See HPI. GENITOURINARY: Denies dysuria, frequency, hematuria and nocturia. ENDOCRINE: Denies polydipsia, polyphagia, polyuria, heat or cold intolerance. INFECTIOUS: Denies any recent upper respiratory tract infection, UTI, need for use of antibiotics. NUTRITION: Reports good appetite. PHYSICAL EXAMINATION: VITAL SIGNS: Please see below. GENERAL APPEARANCE: Patient seen, initially sitting up on the side of the stretcher, appears over all comfortable with mild discomfort on movement. Awake, alert, oriented. HEENT: Normocephalic, atraumatic.. CHEST: No chest wall abnormalities. Normal respiratory motion/effort. NECK: Short thick neck, no obvious chips venous distention. LUNGS: Lung sounds are clear to auscultation bilaterally. No wheezing appreciated. HEART: No chest wall abnormalities. Heart rate and rhythm are regular with no murmurs. ABDOMEN: Obese, soft, nondistended, nontender RECTAL: Patient examined in left lateral decubitus position. Prior incision and drainage site over the left posterolateral area of the anal verge roughly about 2 cm from the anal verge Josephus is fully healed. The perianal area skin has leftover stool. There is some mild deep subcutaneous thickening going towards the anal verge. There is no obvious wide cellulitis. There is somewhat the sugg estion of fullness deep inside of the anal canal but none to obvious externally. Patient uncomfortable during rectal examination. SKIN: Warm, moist. EXTREMITIES: Moderate bilateral lower extremity edema with chronic skin changes at the right lower extremity. No active drainage. NEUROLOGICAL: Awake, alert and oriented. ANCILLARIES: . LABORATORY DATA: Please see below. MICROBIOLOGY: Please see below. IMAGING: CT pelvis In the left hemipelvis in a left pararectal location, there is a fluid dusty ection which measures approximately 4.5 x 2.2 x 4.9 cm and abuts the obturator internus and puborectalis muscles extending inferiorly into the left ischiorectal fossa where there is continued fatty infiltration. There is diffuse fatty infiltration of the perirectal adipose tissue seen on the left side to a greater degree than the right. When compared to the prior exam, this represents a similar appearance, however, it has increased. There is no florencio free pelvic fluid. There is no evidence of pelvic sidewall adenopathy. The osseous structures are unchanged. IMPRESSION: Left-sided pelvic/pararectal abscess as described above. IMPRESSION AND PLAN: Left Ischiorectal/Perirectal abscess, recurrent Patient has been having a similar problem over the left pararectal area for the past 2-3 years or so. The fact that it recurs on the same space raises possibility of an internal fistula opening. Externally there is not much induration though you could feel a little thickening over the left posterior lateral area near the anal verge consistent with the findings on CT but the abscess cavities probably much deeper. I think we need to bring him to the operating room to do an adequate drainage. I discussed with them the possibility of either deeply packed and the area or placing a drain versus a seton if there is a fistula to allow for fully draining and controlling the abscess and future control of the fistula if it is present. It seems to me that the skin closes faster than the abscess cavity is closing as the location of the cavity is much higher and deeper. Patient has been consented and will bring him to the operating room.. Vital Signs Vital Signs Date Time Temp Pulse Resp B/P (MAP) Pulse Ox O2 Delivery O2 Flow Rate FiO2 05/02/20 09:05 05/02/20 08:28 98.4 78 26 94 Room Air Laboratory Data Labs 24H Laboratory Tests 2 05/02/20 09:05: Immature Granulocyte % (Auto) 0.9, Neutrophils (%) (Auto) 82.2H, Lymphocytes (%) (Auto) 5.6L, Monocytes (%) (Auto) 10.0H, Eosinophils (%) (Auto) 1.1, Basophils (%) (Auto) 0.2, Neutrophils # (Auto) 10.8H, Lymphocytes # (Auto) 0.7L, Monocytes # (Auto) 1.3H, Eosinophils # (Auto) 0.2, Basophils # (Auto) 0.0, Nucleated Red Blood Cells % (auto) 0.0 05/02/20 09:07: POC Glucose (Misc Panel) 140H, POC Sodium (Misc Panel) 139, POC Potassium (Misc Panel) 3.8, POC Chloride (Misc Panel) 102, POC Total CO2 (Misc Panel) 24.0, POC Blood Urea Nitrogen (Misc Panel 33H, POC Ionized Calcium (Misc Panel) 4.5, POC Creatinine (Misc Panel) 1.9H, POC Hematocrit (Misc Panel) 36.0L CBC/BMP Laboratory Tests 05/02/20 09:05 Home Medications Scheduled Amoxicillin/Potassium Clav (Augmentin 875-125 Tablet) 1 Each Tablet, 1 TAB PO BID Aspirin (Aspirin) 325 Mg Tab, 325 MG PO DAILY, (Reported) Atenolol (Atenolol) 50 Mg Tab, 75 MG PO DAILY, (Reported) Cholecalciferol (Vitamin D3) (Vitamin D3) 1,000 Unit Tablet, 1,000 UNITS PO DAILY, (Reported) Cyanocobalamin (Vitamin B-12) (Vitamin B-12) 500 Mcg Tab, 500 MCG PO DAILY, (Reported) Digoxin (Digoxin) 125 Mcg Tab, 125 MCG PO DAILY, (Reported) Ferrous Sulfate (Ferrous Sulfate) 325 Mg Tab, 325 MG PO DAILY, (Reported) Finasteride (Finasteride) 5 Mg Tab, 5 MG PO DAILY, (Reported) Folic Acid (Folic Acid) 1 Mg Tab, 1 MG PO DAILY, (Reported) Furosemide (Furosemide) 40 Mg Tab, 80 MG PO DAILY, (Reported) L.acidoph/L.bulg/B.bif/S.therm (Alva-Bid Caplet) 1 Tab Tab, 1 TAB PO DAILY, (Reported) Losartan Potassium (Losartan Potassium) 100 Mg Tab, 100 MG PO DAILY, (Reported) Multivitamins (Thera M Plus Tablet) 1 Each Tablet, 1 TAB PO DAILY, (Reported) Omeprazole (Omeprazole) 20 Mg Cap, 20 MG PO DAILY, (Reported) Spironolactone (Spironolactone) 25 Mg Tablet, 25 MG PO DAILY, (Reported) Allergies Coded Allergies: No Known Allergies (Verified , 01/05/17) A-FIB/CHADSVASC A-FIB History Current/History of A-Fib/PAF?: No Current PO Anticoag Therapy: No KULDIP VERDUGO MD May 02, 2020 11:55
[2020-05-02] MEDS ORDERED: AMOX875T2 PO (12:11)
[2020-05-02] MEDS ORDERED: MIDAZOLAM INJ 2MG/2ML VIAL (J2250 PER 1MG) As Ordered ONE (13:50)
[2020-05-02] MEDS ORDERED: ONDANSETRON 4MG/2ML VIAL As Ordered ONE (13:50)
[2020-05-02] MEDS ORDERED: ROCURONIUM BROMIDE 50 MG/5 ML VIAL As Ordered ONE ×2 (13:50→14:42)
[2020-05-02] MEDS ORDERED: propofoL 200 MG/20 ML VIAL As Ordered ONE (13:50)
[2020-05-02] MEDS ORDERED: dexameTHASONE 4 MG/ML 1ML VIAL (J1100 PER 1MG) As Ordered ONE (13:50)
[2020-05-02] MEDS ORDERED: LIDOCAINE 2% 100MG/5ML SDV (FOR ANES.) As Ordered ONE (13:50)
[2020-05-02] MEDS ORDERED: fentaNYL 250 MCG/5 ML INJECTION (J3010) As Ordered ONE (13:50)
[2020-05-02] MEDS ORDERED: BUPIVACAINE LIPOSOME/PF 1.3% 20ML VIAL (13.3MG/ML)(EXPAREL)(C9290 PER1MG) As Ordered ONE (14:10)
[2020-05-02] MEDS ORDERED: BUPIVACAINE HCL 0.25% 10ML VIAL As Ordered ONE (14:10)
[2020-05-02] MEDS ORDERED: SUGAMMADEX SODIUM 500 MG/5 ML VIAL (BRIDION) As Ordered ONE (14:49)
[2020-05-02] MEDS ORDERED: PHENYLephrine HCL 500 MCG/5 ML (100MCG/ML) SYRINGE (J2370) As Ordered ONE (14:49)
[2020-05-02] MEDS ORDERED: KETOROLAC 30 MG/ML 1ML VIAL IV PRN (15:15)
[2020-05-02] MEDS ORDERED: ONDANSETRON 4MG/2ML VIAL IV PRN ×2 (15:15→15:45)
[2020-05-02] MEDS ORDERED: PERCOCET 5MG/325MG TAB PO PRN (15:15)
--- NOTE | 2020-05-02 15:19 | ROOPDOC ---
[facility] Report Of Operation Report of Operation DATE OF PROCEDURE: 05/02/20 PREPROCEDURE DIAGNOSES: Left perirectal abscess. POSTPROCEDURE DIAGNOSES: Left deep ischiorectal abscess. PROCEDURE: Examined under anesthesia, incision and drainage left ischiorectal abscess. SURGEON: Kuldip Devlin MD WATER RESOURCE ENGINEERING SPECIALIST: ANESTHESIA: General Anesthesia. ESTIMATED BLOOD LOSS: Approximately 20 mL. COMPLICATIONS: none. REMARKS: deep ischiorectal abscess roughly 4 cms into skin line. DESCRIPTION OF PROCEDURE: Patient was brought to the operating room. He received Zosyn 3.375 g IV in the emergency room. Richard's and bilateral sequential compression boots were placed in both lower extremities were DVT prophylaxis. He was intubated on the stretcher. He was then placed on a prone jackknife position on the procedure table with padding placed to protect bony prominences. His buttocks were taped apart. The perianal area was then prepped and draped in usual sterile fashion.We paused for a surgical timeout using both pre-incision safety checklist to verify correct patient, procedure site and additional clinical information prior to beginning the procedure On external examination there is a faint sign of thickening at the left anterolateral area roughly about 3 cm from the anal verge. There are no external signs of skin erythema. He had a prior healed I&D incision close to that area. There is no active drainage. I placed a univalve rectal retractor to review the anal canal while placing external pressure on that area could not see any internal opening or suggestions of it. No active inflammation inside of the anal canal. I used a transient half-inch 18-gauge spinal needle to locate the depth of the abscess. This was inserted with a 20 mL syringe and I got about half way and before getting any purulent drainage from it. Cultures were sent. Using this as a tract a cruciate skin incision was created where the spinal needle enters and a piece of skin was removed. The spinal needle was removed and a hemostat was placed to expand the tract with drainage of purulent material. Roughly about 40 a.m. also purulent foul-smelling thick abscess was drained out. Again with the anal retractor I irrigated with hydrogen peroxide to see if there is any bubbling inside of the anal canal and there is no any evidence of a fistula that I found. I did review the D hydrogen peroxide and further irrigated. I then left a 14 Libyan T-tube drain which I cut into size and advance this into the anal cavity roughly about 6 cm in coming out of our incision and this was secured to the skin with a 2-0 silk. The drain was cut in size. Bulky gauze dressings then placed. Patient tolerated procedure well was promptly awakened and returned to the stretcher, extubated in stable condition. KULDIP DEVLIN MD May 02, 2020 15:19
[2020-05-02] MEDS ORDERED: METOCLOPRAMIDE INJ 10MG/2ML VIAL (J2765 PER 1) IV PRN (15:45)
[2020-05-02] MEDS ORDERED: oxyCODONE 5MG TAB PO PRN (15:45)
[2020-05-02] MEDS ORDERED: LR 1,000 ML IV SCH (15:45)
[2020-05-02] MEDS ORDERED: fentaNYL 100 MCG/2 ML INJECTION (J3010) IV PRN (15:45)
[2020-05-02 16:30] VITALS: BP 119/56
[2020-05-02] MEDS: LR 1,000 ML IV SCH (16:33)
[2020-05-02 17:00] VITALS: BP 122/61
[2020-05-02 17:30] VITALS: BP 133/56
[2020-05-02] MEDS: PIPERACILLIN/TAZOBACTAM SOD 3.375 GM in D5W MINI-BAG PLUS 50 ML IV SCH ×2 (17:35→22:27)
[2020-05-02 19:30] VITALS: BP 118/55
[2020-05-02 20:30] VITALS: BP 117/54
[2020-05-02] MEDS: SENOKOT S TAB PO SCH (21:11)
[2020-05-02 22:00] VITALS: BP 120/55
[2020-05-03 02:00] VITALS: BP 127/53
[2020-05-03] MEDS: PIPERACILLIN/TAZOBACTAM SOD 3.375 GM in D5W MINI-BAG PLUS 50 ML IV SCH ×2 (04:55→11:58)
[2020-05-03 06:00] VITALS: BP 126/54
[2020-05-03 06:30] LABS: BASO % 0.1 % (0.0-1.0); EOS % 0.1 % (0.0-3.0); HEMATOCRIT 34.7 % (42.0-52.0); HEMOGLOBIN 10.6 g/dl (13.5-17.5); LYMPH # 0.5 10^3/uL (1.5-5.0); LYMPH % 4.3 % (24.0-44.0); MEAN CORPUSCULAR HEMOGLOBIN 26.6 pg (27.0-33.0); MEAN CORPUSCULAR HGB CONC 30.5 g/dl (32.0-36.5); MONO # 0.7 10^3/uL (0.0-0.8); MONO % 5.9 % (0.0-5.0); NEUTROPHILS % 89.1 % (36.0-66.0); PLATELET COUNT, AUTOMATED 184 10^3/uL (150-450); RED BLOOD COUNT 3.99 10^6/uL (4.30-6.10); WHITE BLOOD COUNT 11.2 10^3/uL (4.0-10.0)
[2020-05-03 06:51] LABS: C REACTIVE PROTEIN QUANTITATIV 14.4 MG/DL (0.00-0.30); CALCIUM LEVEL 8.4 MG/DL (8.8-10.2); CREATININE FOR GFR 1.43 MG/DL (0.70-1.30); POTASSIUM SERUM 4.2 MEQ/L (3.5-5.1)
[2020-05-03] MEDS ORDERED: SPIRONOLACTONE 25 MG TAB PO SCH (09:00)
[2020-05-03] MEDS ORDERED: atenoloL 25 MG TAB PO SCH (09:00)
[2020-05-03] MEDS ORDERED: FOLIC ACID 1 MG TAB PO SCH (09:00)
[2020-05-03] MEDS ORDERED: FUROSEMIDE 40 MG TAB PO SCH (09:00)
[2020-05-03] MEDS ORDERED: DIGOXIN 0.125 MG TAB PO SCH (09:00)
[2020-05-03] MEDS ORDERED: LOSARTAN 50MG TABLET PO SCH (09:00)
[2020-05-03] MEDS ORDERED: ENOXAPARIN 40MG/0.4ML SYRINGE (J1650 PER 10MG) SC SCH (09:00)
[2020-05-03] MEDS ORDERED: OMEPRAZOLE 20 MG CAP PO SCH (09:00)
[2020-05-03] MEDS ORDERED: FERROUS SULFATE 325MG TAB PO SCH (09:00)
[2020-05-03] MEDS ORDERED: CYANOCOBALAMIN 500 MCG TAB PO SCH (09:00)
[2020-05-03] MEDS ORDERED: VITAMIN D 1,000 INTERNATIONAL UNITS TABLET PO SCH (09:00)
[2020-05-03] MEDS ORDERED: LACTOBACILLUS ACIDOPHILUS CAP (BACID) PO SCH (09:00)
[2020-05-03] MEDS ORDERED: FINASTERIDE 5 MG TAB PO SCH (09:00)
[2020-05-03] MEDS: LR 1,000 ML IV SCH (09:22)
[2020-05-03 09:23] VITALS: BP 117/50
[2020-05-03] MEDS: SENOKOT S TAB PO SCH (09:23)
[2020-05-03 10:00] VITALS: BP 118/51
--- NOTE | 2020-05-03 10:36 | IPNPDOC ---
Text Note Date of Service The patient was seen on 05/03/20. NOTE Patient feeling much better following i&d of a deep left ischiorectal abscess, dressings have been changed twice VS stable, afebrile His wound site is examined, drain in place with drainage of bloody/purulent material, no skin erythema, minimally tender on palpation Impression and plan Postop day 1 incision and drainage of deep left ischiorectal abscess Patient can be discharged home. He has a prior prescription for Augmentin which he has not picked up yet. He is instructed to take antibiotics for a 7 day course. He is instructed to change the dressings as needed and keep the area dry. Warm sitz bath twice a day and every after bowel movements. I will see him back in 2 weeks' time to see if the drain is straight to be removed. VS,Nikki, I+O VS, Rosemarye, I+O Laboratory Tests 05/03/20 06:04 Vital Signs Date Time Temp Pulse Resp B/P (MAP) Pulse Ox O2 Delivery O2 Flow Rate FiO2 05/03/20 10:00 97.9 66 18 118/51 (73) 95 Room Air 05/02/20 21:00 2.0 I&O- Last 24 Hours up to 6 AM 05/03/20 06:00 Intake Total 2650 ml Output Total 975 ml Balance 1675 ml KULDIP VERDUGO MD May 03, 2020 10:36
== END 2020-05-03 12:41 | disposition home or self-care (01) ==
LOC: M ED 08:27 → M SDC 11:39 → ENRESERV 15:22 → M MSPAV 17:17 → M SDC 05-03 12:41
PROVIDERS: ATTEND Surgery
DX: K61.39 Other ischiorectal abscess (principal); N40.0 Benign prostatic hyperplasia without lower urinary tract symptoms; I11.9 Hypertensive heart disease without heart failure; I50.9 Heart failure, unspecified; I25.2 Old myocardial infarction; I48.91 Unspecified atrial fibrillation; Z95.1 Presence of aortocoronary bypass graft; Z79.82 Long term (current) use of aspirin; Z79.899 Other long term (current) drug therapy
CPT/HCPCS: 36415; 46040; 80047; 80048; 85025; 86140; 87070; 87075; 87076; 87077; 87186; 87205; 96361; 96365; 96366; 96372; 99284; C9290; J1100; J1650; J1885; J2250; J2370; J2405; J2543; J3010

== ENCOUNTER 2020-06-15 07:38 | Inpatient (IN) | payer MEDICARE ==
[~2020-06-15] VITALS: Ht 180.3 cm; Wt 128.1 kg
[2020-06-15] MEDS: HEPARIN SOD (PORCINE) 5000UNITS/ML 1ML VIAL/SYRINGE SC SCH
[~2020-06-15 07:38] MED LIST changes: +AMOX875T2 PO
[2020-06-15] MEDS ORDERED: MORPHINE 2 MG/ML 1ML VIAL (J2270) IV PRN (08:15)
[2020-06-15 08:42] LABS: BASO % 0.1 % (0.0-1.0); EOS % 0.2 % (0.0-3.0); HEMATOCRIT 36.8 % (42.0-52.0); HEMOGLOBIN 11.8 g/dl (13.5-17.5); LYMPH # 0.7 10^3/uL (1.5-5.0); LYMPH % 3.4 % (24.0-44.0); MEAN CORPUSCULAR HEMOGLOBIN 27.3 pg (27.0-33.0); MEAN CORPUSCULAR HGB CONC 32.1 g/dl (32.0-36.5); MONO # 1.9 10^3/uL (0.0-0.8); MONO % 10.3 % (0.0-5.0); NEUTROPHILS # 16.2 10^3/uL (1.5-8.5); NEUTROPHILS % 85.4 % (36.0-66.0); PLATELET COUNT, AUTOMATED 214 10^3/uL (150-450); RED BLOOD COUNT 4.33 10^6/uL (4.30-6.10); WHITE BLOOD COUNT 18.9 10^3/uL (4.0-10.0)
[2020-06-15] MEDS ORDERED: ISOVUE-370 76% 100ML VIAL As Ordered ONE (08:57)
[2020-06-15] MEDS ORDERED: LOSARTAN 50MG TABLET PO SCH (09:00)
[2020-06-15] MEDS ORDERED: PIPERACILLIN/TAZOBACTAM SOD 3.375 GM in D5W MINI-BAG PLUS 50 ML IV ONE (11:00)
[2020-06-15] MEDS ORDERED: LOSA50TA88 PO (11:35)
--- NOTE | 2020-06-15 12:38 | HPEPDOC ---
[facility] Medical History & Physical Date of Admission Jun 15, 2020 Date of Service: Jun 15, 2020 Attending Physician: MICHAEL MCKENZIE MD History and Physical CHIEF COMPLAINT: per-rectal abscess HISTORY OF PRESENT ILLNESS: 79 y/o M PMHx HTN, CAD s/p CABG, CHF, recurrent josias-rectal abscess who presents with rectal pain. Pt denies Fevers/chills. No N/V/Abd pain. No CP/SOB/palpitations. Has been drinking alot of iced tea, although knows he is supposed to restrict his fluid intake. Has LE edema. No SOB/orthopnea/PND. Last hospitalized in April, went to OR for drainage of per-rectal abscess and st ates he completed 10days Abx. PAST MEDICAL HISTORY: As per HPI PAST SURGICAL HISTORY: CABG, Cholecystectomy, hernia, prior per-rectal abscess SOCIAL HISTORY: Denies current tobacco, alcohol use. Prior tobacco use, quit 35 yrs ago. FAMILY HISTORY: Non contributory. ALLERGIES: Please see below. REVIEW OF SYSTEMS: HEENT: Denies sore throat/headache CARDIOVASCULAR: Denies chest pain/palpitations RESPIRATORY: Denies shortness of breath/cough GASTROINTESTINAL: denies nausea/vomiting GENITOURINARY: Denies dysuria/urinary urgency. MUSCULOSKELETAL: Denies myalgias/arthralgias NEUROLOGICAL: Denies any focal weakness HOME MEDICATIONS: Please see below. PHYSICAL EXAMINATION: Vitals: (see below) General: No acute distress, laying comfortably in bed. HEENT: Moist mucous membranes. Neck: No JVD or lymphadenopathy Cardiac: RRR, No murmurs Pulm: Clear to auscultation b/l. No wheezing, rhonchi Abd: NT/ND + BS Ext: 1-2 + Pitting edema BLE. No cyanosis. distal pulses intact. chronic venous stasis skin changes. No signs of cellulitis LABORATORY DATA: See below. IMAGING: CT A/P Prelim read with 12x4x5.5cm per-rectal abscess ASSESSMENT/PLAN: 1. Per-rectal abscess with leukocytosis on admission. Prior abscess 2years ago, and last month drained. Discussed with Dr. Grimaldo who notes he will see pt and decide on OR vs IR guided drain. In the meantime, will keep pt on Zosyn, check bld cx. Will need cx from abscess drainage. 2. LE edema; h/o CHF. No respiratory symptoms. u/s LE r/o DVT. Cont diuretics. 3. HTN controlled. cont home meds. 4. BPH cont home meds 5. H/o CAD s/p CABG cont home meds. Denies chest pain DVT Prophy: Hep SQ Pt expected to be hospitalized for >2midnights for treatment of above. Vital Signs Vital Signs Date Time Temp Pulse Resp B/P (MAP) Pulse Ox O2 Delivery O2 Flow Rate FiO2 06/15/20 11:18 16 06/15/20 08:44 06/15/20 07:39 99.5 98 93 Room Air Laboratory Data Labs 24H Laboratory Tests 2 06/15/20 08:23: Immature Granulocyte % (Auto) 0.6, Neutrophils (%) (Auto) 85.4H, Lymphocytes (%) (Auto) 3.4L, Monocytes (%) (Auto) 10.3H, Eosinophils (%) (Auto) 0.2, Basophils (%) (Auto) 0.1, Neutrophils # (Auto) 16.2H, Lymphocytes # (Auto) 0.7L, Monocytes # (Auto) 1.9H, Eosinophils # (Auto) 0.0, Basophils # (Auto) 0.0, Nucleated Red Blood Cells % (auto) 0.0 CBC/BMP Laboratory Tests 06/15/20 08:23 Microbiology Microbiology 06/15/20 Blood Culture, Received Pending 06/15/20 Blood Culture, Received Pending Home Medications Scheduled Aspirin (Aspirin) 325 Mg Tab, 325 MG PO DAILY Atenolol (Atenolol) 50 Mg Tab, 75 MG PO DAILY Cholecalciferol (Vitamin D3) (Vitamin D3) 1,000 Unit Tablet, 1,000 UNITS PO DAILY Cyanocobalamin (Vitamin B-12) (Vitamin B-12) 500 Mcg Tab, 500 MCG PO DAILY Digoxin (Digoxin) 125 Mcg Tab, 125 MCG PO DAILY Ferrous Sulfate (Ferrous Sulfate) 325 Mg Tab, 325 MG PO DAILY Finasteride (Finasteride) 5 Mg Tab, 5 MG PO DAILY Folic Acid (Folic Acid) 1 Mg Tab, 1 MG PO DAILY Furosemide (Furosemide) 40 Mg Tab, 80 MG PO DAILY L.acidoph/L.bulg/B.bif/S.therm (Alva-Bid Caplet) 1 Tab Tab, 1 TAB PO DAILY Losartan Potassium (Losartan Potassium) 50 Mg Tablet, 50 MG PO DAILY Multivitamins (Thera M Plus Tablet) 1 Each Tablet, 1 TAB PO DAILY Omeprazole (Omeprazole) 20 Mg Cap, 20 MG PO DAILY Spironolactone (Spironolactone) 25 Mg Tablet, 25 MG PO DAILY Allergies Coded Allergies: No Known Allergies (Verified , 01/05/17) A-FIB/CHADSVASC A-FIB History Current/History of A-Fib/PAF?: No MICHAEL MCKENZIE MD Jun 15, 2020 12:38
[2020-06-15 13:51] LABS: ALBUMIN 3.4 GM/DL (3.2-5.2); BILIRUBIN,TOTAL 1.4 MG/DL (0.2-1.0); CALCIUM LEVEL 8.9 MG/DL (8.8-10.2); CREATININE FOR GFR 1.26 MG/DL (0.70-1.30); GLOMERULAR FILTRATION RATE 59.1 (>42); POTASSIUM SERUM 4.2 MEQ/L (3.5-5.1); TOTAL PROTEIN 6.7 GM/DL (6.4-8.2)
[2020-06-15] MEDS: DIGOXIN 0.125 MG TAB PO SCH (14:22)
[2020-06-15] MEDS: MULTIVITAMINS/MINERALS THERAP 1 TAB PO SCH (14:22)
[2020-06-15] MEDS: FERROUS SULFATE 325MG TAB PO SCH (14:22)
[2020-06-15] MEDS: FUROSEMIDE 80 MG TAB PO SCH (14:23)
[2020-06-15] MEDS: CYANOCOBALAMIN 500 MCG TAB PO SCH (14:23)
[2020-06-15] MEDS: atenoloL 25 MG TAB PO SCH (14:23)
[2020-06-15] MEDS: FOLIC ACID 1 MG TAB PO SCH (14:23)
[2020-06-15] MEDS: OMEPRAZOLE 20 MG CAP PO SCH (14:24)
[2020-06-15] MEDS: ASPIRIN 325 MG TAB PO SCH (14:24)
[2020-06-15] MEDS: LACTOBACILLUS ACIDOPHILUS CAP (BACID) PO SCH (14:24)
[2020-06-15] MEDS: FINASTERIDE 5 MG TAB PO SCH (14:24)
[2020-06-15] MEDS: SPIRONOLACTONE 25 MG TAB PO SCH (14:25)
[2020-06-15 16:00] VITALS: BP 127/63
[2020-06-15] MEDS ORDERED: BUPIVACAINE/EPIN 0.25% 30 ML VIAL As Ordered ONE (16:40)
[2020-06-15] MEDS: PIPERACILLIN/TAZOBACTAM SOD 3.375 GM in D5W MINI-BAG PLUS 50 ML IV SCH (17:34)
[2020-06-15] MEDS ORDERED: ONDANSETRON 4MG/2ML VIAL As Ordered ONE (20:15)
[2020-06-15] MEDS ORDERED: MIDAZOLAM INJ 2MG/2ML VIAL (J2250 PER 1MG) As Ordered ONE (20:15)
[2020-06-15] MEDS ORDERED: LIDOCAINE 2% 100MG/5ML SDV (FOR ANES.) As Ordered ONE (20:15)
[2020-06-15] MEDS ORDERED: propofoL 200 MG/20 ML VIAL As Ordered ONE (20:15)
[2020-06-15] MEDS ORDERED: fentaNYL 100 MCG/2 ML INJECTION (J3010) As Ordered ONE (20:15)
[2020-06-15] MEDS ORDERED: KETAMINE HCL 200 MG/20 ML VIAL As Ordered ONE (20:19)
[2020-06-15] MEDS ORDERED: fentaNYL 100 MCG/2 ML INJECTION (J3010) IV PRN (21:00)
[2020-06-15] MEDS ORDERED: LR 1,000 ML IV SCH (21:00)
[2020-06-15] MEDS ORDERED: oxyCODONE 5MG TAB PO PRN (21:00)
[2020-06-15 21:05] VITALS: BP 112/54
[2020-06-15 21:35] VITALS: BP 124/54
[2020-06-15 22:05] VITALS: BP 124/56
[2020-06-15 23:05] VITALS: BP 128/58
[2020-06-16 00:05] VITALS: BP 112/54
[2020-06-16] MEDS: PIPERACILLIN/TAZOBACTAM SOD 3.375 GM in D5W MINI-BAG PLUS 50 ML IV SCH ×4 (00:10→18:46)
[2020-06-16 01:05] VITALS: BP 112/54
[2020-06-16 02:05] VITALS: BP 110/56
[2020-06-16 06:00] VITALS: BP 126/62
[2020-06-16] MEDS: HEPARIN SOD (PORCINE) 5000UNITS/ML 1ML VIAL/SYRINGE SC SCH ×3 (06:33→22:02)
[2020-06-16 07:08] LABS: HEMATOCRIT 34.8 % (42.0-52.0); HEMOGLOBIN 10.8 g/dl (13.5-17.5); MEAN CORPUSCULAR HEMOGLOBIN 26.9 pg (27.0-33.0); MEAN CORPUSCULAR VOLUME 86.8 fl (80.0-96.0); PLATELET COUNT, AUTOMATED 210 10^3/uL (150-450); RED BLOOD COUNT 4.01 10^6/uL (4.30-6.10); WHITE BLOOD COUNT 13.8 10^3/uL (4.0-10.0)
[2020-06-16 07:41] LABS: ALBUMIN 2.9 GM/DL (3.2-5.2); CALCIUM LEVEL 8.5 MG/DL (8.8-10.2); CREATININE FOR GFR 1.44 MG/DL (0.70-1.30); GLOMERULAR FILTRATION RATE 50.6 (>42); POTASSIUM SERUM 4.2 MEQ/L (3.5-5.1)
[2020-06-16] MEDS: VITAMIN D 1,000 INTERNATIONAL UNITS TABLET PO SCH (09:37)
[2020-06-16] MEDS: LACTOBACILLUS ACIDOPHILUS CAP (BACID) PO SCH (09:37)
[2020-06-16] MEDS: OMEPRAZOLE 20 MG CAP PO SCH (09:37)
[2020-06-16] MEDS: FOLIC ACID 1 MG TAB PO SCH (09:38)
[2020-06-16] MEDS: DIGOXIN 0.125 MG TAB PO SCH (09:38)
[2020-06-16] MEDS: FERROUS SULFATE 325MG TAB PO SCH (09:38)
[2020-06-16] MEDS: MULTIVITAMINS/MINERALS THERAP 1 TAB PO SCH (09:38)
[2020-06-16] MEDS: SPIRONOLACTONE 25 MG TAB PO SCH (09:39)
[2020-06-16] MEDS: FINASTERIDE 5 MG TAB PO SCH (09:39)
[2020-06-16] MEDS: ASPIRIN 325 MG TAB PO SCH (09:39)
[2020-06-16] MEDS: FUROSEMIDE 80 MG TAB PO SCH (09:39)
[2020-06-16] MEDS: CYANOCOBALAMIN 500 MCG TAB PO SCH (09:39)
[2020-06-16] MEDS: atenoloL 25 MG TAB PO SCH (09:40)
--- NOTE | 2020-06-16 10:03 | IPNPDOC ---
Text Note Date of Service The patient was seen on 06/16/20. NOTE No acute events overnight. Tolerating diet. Denies nausea, emesis, or fevers. The pain is much improved. VSSAF NAD labs - below A) 79y/o male s/p I+D or perirectal abscess P) PO abx stable for d/c from surgical standpoint just keep wound covered until it stops draining. No more packing needed. f/u with Dr. Devlin in the office as needed. Rylan Hernandez VS,Nikki, I+O VSNikki, I+O Laboratory Tests 06/15/20 12:47 06/16/20 06:50 Vital Signs Date Time Temp Pulse Resp B/P (MAP) Pulse Ox O2 Delivery O2 Flow Rate FiO2 06/16/20 09:40 125/38 06/16/20 09:38 80 06/16/20 06:00 98.1 18 90 Room Air I&O- Last 24 Hours up to 6 AM 06/16/20 05:59 Intake Total 850 ml Output Total 2130 ml Balance -1280 ml MELIDA HERNANDEZ DO Jun 16, 2020 10:03
--- NOTE | 2020-06-16 12:56 | IPNPDOC ---
Text Note Date of Service The patient was seen on 06/16/20. NOTE Subjective: PHYSICAL EXAMINATION: Vitals: (see below) General: No acute distress, laying comfortably in bed. HEENT: Moist mucous membranes. Neck: No JVD or lymphadenopathy Cardiac: RRR, No murmurs Pulm: Clear to auscultation b/l. No wheezing, rhonchi Abd: NT/ND + BS Ext: 1-2 + Pitting edema BLE. No cyanosis. distal pulses intact. chronic venous stasis skin changes. No signs of cellulitis LABORATORY DATA: See below. IMAGING: CT A/P Prelim read with 12x4x5.5cm per-rectal abscess ASSESSMENT/PLAN: 1. Per-rectal abscess with leukocytosis on admission. Prior abscess 2years ago, and last month drained. S/p I&D with Dr. Grimaldo in the OR on 06/15. In the meantime, will keep pt on Zosyn, check bld cx. Send wound cx from abscess drainage. 2. LE edema; h/o CHF. No respiratory symptoms. u/s LE negative for DVT. Cont diuretics. 3. HTN controlled. cont home meds. 4. BPH cont home meds 5. H/o CAD s/p CABG cont home meds. Denies chest pain DVT Prophy: Hep SQ PT consulted. VS,Fishbone, I+O VS, Fishbone, I+O Laboratory Tests 06/15/20 12:47 06/16/20 06:50 Vital Signs Date Time Temp Pulse Resp B/P (MAP) Pulse Ox O2 Delivery O2 Flow Rate FiO2 06/16/20 09:40 125/38 06/16/20 09:38 80 06/16/20 06:00 98.1 18 90 Room Air I&O- Last 24 Hours up to 6 AM 06/16/20 06:00 Intake Total 850 ml Output Total 2530 ml Balance -1680 ml MICHAEL MCKENZIE MD Jun 16, 2020 12:56
[2020-06-16 14:00] VITALS: BP 129/58
[2020-06-17] VITALS: BP 101/49
[2020-06-17] MEDS: PIPERACILLIN/TAZOBACTAM SOD 3.375 GM in D5W MINI-BAG PLUS 50 ML IV SCH ×3 (00:36→11:08)
[2020-06-17 06:00] VITALS: BP 121/59
[2020-06-17] MEDS: HEPARIN SOD (PORCINE) 5000UNITS/ML 1ML VIAL/SYRINGE SC SCH (06:47)
[2020-06-17 07:25] LABS: HEMATOCRIT 34.4 % (42.0-52.0); HEMOGLOBIN 10.5 g/dl (13.5-17.5); MEAN CORPUSCULAR HEMOGLOBIN 26.4 pg (27.0-33.0); MEAN CORPUSCULAR HGB CONC 30.5 g/dl (32.0-36.5); MEAN CORPUSCULAR VOLUME 86.4 fl (80.0-96.0); PLATELET COUNT, AUTOMATED 216 10^3/uL (150-450); RED BLOOD COUNT 3.98 10^6/uL (4.30-6.10); WHITE BLOOD COUNT 8.2 10^3/uL (4.0-10.0)
[2020-06-17 07:50] LABS: ALBUMIN 2.8 GM/DL (3.2-5.2); BILIRUBIN,TOTAL 0.5 MG/DL (0.2-1.0); CALCIUM LEVEL 8.5 MG/DL (8.8-10.2); CREATININE FOR GFR 1.47 MG/DL (0.70-1.30); GLOMERULAR FILTRATION RATE 49.5 (>42); POTASSIUM SERUM 3.8 MEQ/L (3.5-5.1); TOTAL PROTEIN 6.5 GM/DL (6.4-8.2)
[2020-06-17] MEDS: FUROSEMIDE 80 MG TAB PO SCH (08:28)
[2020-06-17] MEDS: VITAMIN D 1,000 INTERNATIONAL UNITS TABLET PO SCH (08:28)
[2020-06-17] MEDS: DIGOXIN 0.125 MG TAB PO SCH (08:28)
[2020-06-17] MEDS: LACTOBACILLUS ACIDOPHILUS CAP (BACID) PO SCH (08:29)
[2020-06-17] MEDS: MULTIVITAMINS/MINERALS THERAP 1 TAB PO SCH (08:29)
[2020-06-17] MEDS: SPIRONOLACTONE 25 MG TAB PO SCH (08:29)
[2020-06-17] MEDS: ASPIRIN 325 MG TAB PO SCH (08:29)
[2020-06-17] MEDS: CYANOCOBALAMIN 500 MCG TAB PO SCH (08:29)
[2020-06-17] MEDS: OMEPRAZOLE 20 MG CAP PO SCH (08:29)
[2020-06-17 08:30] VITALS: BP 121/56
[2020-06-17] MEDS: FERROUS SULFATE 325MG TAB PO SCH (08:30)
[2020-06-17] MEDS: FOLIC ACID 1 MG TAB PO SCH (08:30)
[2020-06-17] MEDS: atenoloL 25 MG TAB PO SCH (08:30)
[2020-06-17] MEDS: FINASTERIDE 5 MG TAB PO SCH (08:30)
[2020-06-17] MEDS ORDERED: AUGM875T28 PO (10:13)
--- NOTE | 2020-06-17 13:41 | DS.PDOC ---
Discharge Summary General Date of Admission Jun 15, 2020 at 12:01 Date of Discharge 06/17/20 Discharge Summary Hospitalist Discharge Summary Dictated job #[id number] Vital Signs/I&Os Vital Signs Date Time Temp Pulse Resp B/P (MAP) Pulse Ox O2 Delivery O2 Flow Rate FiO2 06/17/20 08:30 121/56 06/17/20 08:28 78 06/17/20 06:00 97.5 18 92 Room Air 06/16/20 06:00 I&O- Last 24 Hours up to 6 AM 06/17/20 06:00 Intake Total 1060 ml Output Total 1500 ml Balance -440 ml Laboratory Data Labs 24H Laboratory Tests 2 06/17/20 06:39: Nucleated Red Blood Cells % (auto) 0.0, Anion Gap 7L, Glomerular Filtration Rate 49.5, Calcium Level 8.5L, Total Bilirubin 0.5, Aspartate Amino Transf (AST/SGOT) 14, Alanine Aminotransferase (ALT/SGPT) 28, Alkaline Phosphatase 119H, Total Protein 6.5, Albumin 2.8L, Albumin/Globulin Ratio 0.8 CBC/BMP Laboratory Tests 06/17/20 06:39 Microbiology Microbiology 06/16/20 Gram Stain - Final, Resulted 06/16/20 Wound Culture, Resulted Pending 06/15/20 Respiratory Virus Panel (PCR) (JESUS) - Final, Complete 06/15/20 Blood Culture - Preliminary, Resulted No Growth after 48 hours. All Specime... 06/15/20 Blood Culture - Preliminary, Resulted No Growth after 48 hours. All Specime... Discharge Medications Scheduled Amoxicillin/Potassium Clav (Augmentin 875-125 Tablet) 1 Each Tablet, 1 TAB PO BID Aspirin (Aspirin) 325 Mg Tab, 325 MG PO DAILY, (Reported) Atenolol (Atenolol) 50 Mg Tab, 75 MG PO DAILY, (Reported) Cholecalciferol (Vitamin D3) (Vitamin D3) 1,000 Unit Tablet, 1,000 UNITS PO DAILY, (Reported) Cyanocobalamin (Vitamin B-12) (Vitamin B-12) 500 Mcg Tab, 500 MCG PO DAILY, (Reported) Digoxin (Digoxin) 125 Mcg Tab, 125 MCG PO DAILY, (Reported) Ferrous Sulfate (Ferrous Sulfate) 325 Mg Tab, 325 MG PO DAILY, (Reported) Finasteride (Finasteride) 5 Mg Tab, 5 MG PO DAILY, (Reported) Folic Acid (Folic Acid) 1 Mg Tab, 1 MG PO DAILY, (Reported) Furosemide (Furosemide) 40 Mg Tab, 80 MG PO DAILY, (Reported) LAleksanderacidanthony/Kailee/Cora/S.therm (Alva-Bid Caplet) 1 Tab Tab, 1 TAB PO DAILY, (Reported) Losartan Potassium (Losartan Potassium) 50 Mg Tablet, 50 MG PO DAILY, (Reported) Multivitamins (Thera M Plus Tablet) 1 Each Tablet, 1 TAB PO DAILY, (Reported) Omeprazole (Omeprazole) 20 Mg Cap, 20 MG PO DAILY, (Reported) Spironolactone (Spironolactone) 25 Mg Tablet, 25 MG PO DAILY, (Reported) Allergies Coded Allergies: No Known Allergies (Verified , 01/05/17) DONA CUMMINS MD Jun 17, 2020 13:36
--- NOTE | 2020-06-18 10:42 | ECHO ---
DATE OF PROCEDURE: 06/16/2020 Age: Gender: Male Height: 180 cm Weight: 128 kg REFERRING PHYSICIAN: Dr. Derrick Wellington INDICATION: Edema MEASUREMENTS: IVS 1.4 LV 5.4 LVPW 1.1 LA 5.0 Aorta 3.2 Mitral E wave velocity 72, A wave 110 E prime septal 6.4 E prime lateral 9.0 FINDINGS: The study is of fair technical quality with somewhat challenging visualization, likely corresponding to patient's body habitus. The patient is in sinus rhythm. Left ventricle is normal size and has normal systolic function, I estimate ejection fraction (EF) around 65 to 70%. Mild left ventricular hypertrophy is noted. Right ventricle was relatively poorly seen, but appears at least mildly dilated. There is biatrial enlargement. Limited views of atrial septum are suggestive of atrial septal aneurysm. Aortic valve is mildly sclerotic, but has 3 cusps and normal mobility. Mitral, tricuspid and pulmonic valves appear grossly normal. No pericardial effusion is noted. Inferior vena cava was not well seen. Aortic root is normal. Aortic arch and abdominal aorta were not visualized. Doppler interrogation reveals no significant aortic valvular disease. There is trace mitral and trace tricuspid insufficiency. Calculated pulmonary artery pressure is approximately 30 to 35 mmHg depending on central venous pressure suggestive of at least borderline pulmonary hypertension. Mitral inflow pattern and tissue Doppler imaging of mitral annulus reveals grade 1 diastolic dysfunction. CONCLUSIONS: 1. Study is of fair technical quality, the patient is in sinus rhythm 2. Normal LV size with mild left ventricular hypertrophy (LVH) and preserved LV systolic function. Grade 1 diastolic dysfunction. 3. No hemodynamically significant valvular disease. 4. Unable to estimate central venous pressure, but likely at least borderline pulmonary hypertension. 5. Right ventricle appears at least mildly dilated based on limited views. [facility]
--- NOTE | 2020-07-10 09:00 | RO ---
DATE OF OPERATION: 06/15/2020 PREOPERATIVE DIAGNOSIS: Left perirectal abscess. POSTOPERATIVE DIAGNOSIS: Left perirectal abscess. PROCEDURE: Incision and drainage of left perirectal abscess. SURGEON: Simone Hernandez DO FORGE PRESS OPERATOR: None. ANESTHESIA: IV sedation with 10 ml of 1% lidocaine with Epinephrine local. COMPLICATIONS: None. INDICATIONS FOR PROCEDURE: The patient is a 79-year-old man with a history of recurrent left perirectal abscess, presents with recurrent abscess. Recommendation was to proceed with incision and drainage in the operating room. Risks and benefits of the procedure not limited to, but including bleeding, infection, damage to surround structures were discussed with in detail with the patient. Informed consent was obtained. Procedure was planned. PROCEDURE: The patient was brought back to operating room 3. After sufficient sedation, he was placed in the right lateral decubitus position on the stretcher. The left perirectal abscess was then sterilely prepped and draped with Betadine. Next, time-out was done to confirm proper patient and proper procedure. Following that, local was injected into the skin and subcutaneous tissue over the most fluctuant portion of the abscess. Next, using a 15 blade scalpel, 1.5 cm incision was made into a large pocket of pus. Over 200 ml of purulent fluid was removed. Once that was done, it was irrigated with about 500 ml of saline. Once that was completed, it was packed with quarter inch Iodoform packing, covered with Prep gauze and ABD and tape. The patient tolerated the procedure well and was sent to recovery room in stable condition. MICHAELA
--- NOTE | 2020-07-14 10:16 | REP ---
CT OF THE ABDOMEN AND PELVIS WITH CONTRAST CLINICAL: Rectal pain with history of abscess. TECHNIQUE: Axial contrast enhanced images from the lung bases to the pubic symphysis using 100 cc Isovue-370 intravenous contrast material with coronal and sagittal reformations. COMPARISON: 05/01/2020, 10/12/2018 FINDINGS: There is a moderate to large multiloculated perirectal/perianal abscess with surrounding inflammatory stranding in the adjacent ischiorectal fat (axial images 145-184). The abscess has enlarged as compared to 05/01/2020. Fatty infiltration to the liver noted. Mild splenomegaly suggested without focal splenic lesion. Pancreas and bilateral adrenal glands are normal. Evidence for prior cholecystectomy. Chronic perinephric stranding and bilateral simple and complex cysts essentially unchanged from prior examination and measuring up to 2 cm in the right kidney and 9.3 cm in the left kidney. The enteric system is without obstruction or acute inflammatory process. Colonic and sigmoid diverticulosis noted without acute diverticulitis. Normal terminal ileum and appendix are identified in the right lower quadrant. Pelvis demonstrates normal bladder and age-appropriate prostate/seminal vesicles. Perirectal/perianal multiloculated abscess is identified which measures approximately 12.0 x 4.0 x 5.5 cm in maximal measurements with multiple small adjacent pockets and surrounding inflammatory stranding noted (axial images 145-184). No ascites. No free air. No significant retroperitoneal adenopathy. Atherosclerotic changes to the aorta and (cut out). Skeletal structures demonstrate age-related degenerative changes. A subtle ill-defined lytic lesion in the left iliac bone is unchanged from 2018. IMPRESSION: * Enlarging multiloculated perirectal/perianal abscess with surrounding inflammatory stranding. Abscess currently measures roughly 12 x 4 x 5.5 cm in maximal diameter and increased from 05/01/2020. * Sigmoid diverticula without acute diverticulitis. * Relatively stable simple and complex bilateral renal cysts. * Fatty infiltration to the liver along with mild hepatosplenomegaly. MTDD
--- NOTE | 2020-07-14 10:17 | REP ---
BILATERAL LOWER EXTREMITY DOPPLER ULTRASOUND CLINICAL: Pain and swelling. TECHNIQUE: Real-time vences scale and color Doppler evaluation of the bilateral lower extremities using linear high frequency transducer. FINDINGS: Ultrasound examination demonstrates normal compressibility, flow, and wave patterns of the bilateral lower extremity deep venous structures from the common femoral veins to the popliteal veins. There is no evidence for deep vein thrombosis. IMPRESSION: Negative examination. No evidence for deep vein thrombosis (DVT) bilaterally. MTDD
--- NOTE | 2020-07-14 15:46 | DSES ---
DATE OF ADMISSION: 06/15/2020 DATE OF DISCHARGE: 06/17/2020 OCCUPATIONAL PSYCHOLOGIST: General surgeon, Dr. Hernandez PROCEDURE: Incision and drainage of perirectal abscess. DISCHARGE DIAGNOSES: 1. Perirectal abscess. 2. Chronic venous insufficiency with chronic lower extremity edema with chronic venous ulcers. 3. Hypertension. 4. BPH. 5. History of coronary artery disease CAD) and coronary artery bypass graft (CABG). DISCHARGE MEDICATIONS: - Augmentin 875/125 one tablet twice a day - aspirin 325 daily - atenolol 75 daily - vitamin D 1000 units daily - B12 at 500 mcg daily - digoxin 125 mcg daily - ferrous sulfate 325 daily - finasteride 5 mg daily - folic acid 1 mg daily - Lasix 80 mg daily - Lactobacillus one tablet daily - losartan 50 daily - multivitamin one tablet daily - Prilosec 20 daily - spironolactone 25 daily DISCHARGE INSTRUCTIONS: Four times a day dressing changes per general surgery. Outpatient followup with Dr. Rowe and Dr. Hernandez within 7 days of hospital discharge. Patient is to have primary care physician appointment within 5 days of hospital discharge. HOSPITAL COURSE: This is a 79-year-old male admitted on June 15 due to complaints of perirectal abscess without fever or chills at home. Complaint of rectal pain. Patient has had worsening lower extremity edema without shortness of breath, paroxysmal nocturnal dyspnea (PND), or orthopnea. Last hospitalized in April at [facility] and went to the operating room (OR) for drainage of perirectal abscess. Completed 10 days of antibiotics. Patient was admitted on June [address] findings of 12 x 4 x 5.5 cm abscess that was incised and drained by Dr. Hernandez. Kept on Zosyn. Ultrasound of lower extremities was negative for deep venous thrombosis (DVT). Patient was resumed on his home doses of medications. Blood cultures were negative. Wound culture showed no organisms. Many WBC. Patient had significant improvement. Remained afebrile with white count decreasing from admission of 18.9 to discharge of 8.2. Patient had chronic kidney disease, stage III, and was at baseline creatinine of 1.4. Patient was adamant on returning back to work immediately on . He was medically stable and was cleared by physical therapy. PHYSICAL EXAMINATION ON DISCHARGE: Temperature 97.5, pulse 71, respiratory rate 18, blood pressure 121/59, 92% on room air. GENERAL: Obese. No respiratory distress. Providing history without difficulty. No conversational dyspnea. LUNGS: Clear to auscultation. No wheezing, rales, or rhonchi. HEART: S1, S2, sinus rhythm. ABDOMEN: Obese, soft, nontender, nondistended. EXTREMITIES: Pitting edema 2+. Chronic venous stasis. No signs of cellulitis. Perirectal abscess draining serosanguineous material. LABORATORY DATA ON DISCHARGE: White count 8.2, hemoglobin 10, hematocrit 34, platelet count 216. Sodium 142, potassium 3.8, chloride 108, bicarbonate 27, BUN 33, creatinine 1.47, glucose 105. Microbiology: Wound culture: No organisms. Many WBC. Respiratory panel on June 15 negative for COVID. Blood cultures two sets June [address] abdomen and pelvis 06/15/2020: A 12 x 4 x 5.5 cm perirectal abscess. TIME SPENT ON DISCHARGE: 30 minutes. MTDD
== END 2020-06-17 12:25 | disposition home health service (06) | DRG 346 ==
LOC: M ED 07:38 → M ED INP 12:01 → M MS5PR 13:40
PROVIDERS: ADMIT Internal Medicine; ATTEND Internal Medicine
PROC: 0D9P0ZZ Drainage of Rectum, Open Approach (ICD-10-PCS; principal; 2020-06-15 16:09)
DX: K61.1 Rectal abscess (principal); I11.0 Hypertensive heart disease with heart failure; I25.10 Atherosclerotic heart disease of native coronary artery without angina pectoris; I50.9 Heart failure, unspecified; N40.0 Benign prostatic hyperplasia without lower urinary tract symptoms; Z79.82 Long term (current) use of aspirin; Z79.899 Other long term (current) drug therapy

== ENCOUNTER → 2020-07-05 | Outpatient (CLI) | payer MEDICARE ==
[~2020-07-05] MED LIST changes: +LOSA50TA88 PO
[2020-07-05 12:01] LABS: BLOOD UREA NITROGEN 26 MG/DL (7-18); GLOMERULAR FILTRATION RATE > 60.0 (>42)
== END ==
LOC: M LAB 11:05
PROVIDERS: ATTEND Surgery
DX: K61.4 Intrasphincteric abscess (principal)

== ENCOUNTER → 2020-07-08 | Outpatient (CLI) | payer MEDICARE ==
--- NOTE | 2020-07-17 11:20 | REP ---
CT STUDY PELVIS WITHOUT INTRAVENOUS (IV) OR ORAL CONTRAST HISTORY: Intrasphincteric anal abscess. COMPARISON: CT study abdomen and pelvis 06/15/2020 and 05/01/2020. CT FINDINGS: The left perianal abscess and associated fistulous tract is dramatically improved when compared with the most recent prior study of 06/15/2020. There is somewhat thickening of the levator ani muscle on the left adjacent to the tract, and I cannot exclude a tiny amount of residual fluid here adjacent to the lower rectum. The previously noted large fluid collection has resolved. No new tract or new fluid collection is identified. Prostate, seminal vesicle, and urinary bladder are unremarkable. No ischiorectal adenopathy or prevertebral mass or adenopathy is observed. Vascular calcifications again seen. There are low density cysts in the lower pole of each kidney. There is left colonic diverticulosis without CT evidence of diverticulitis. IMPRESSION: Significant improvement in the left perianal abscess since the 06/15/2020 study as above. MTDD
== END ==
LOC: M RAD 14:09
PROVIDERS: ATTEND Surgery
DX: K61.4 Intrasphincteric abscess (principal)

== ENCOUNTER → 2020-10-28 | Outpatient (REF) | payer MEDICARE ==
[~2020-10-28] MED LIST changes: -CLIN150C14 PO; +CLIN150C15 PO; +CYAN500T14 PO; -CYAN500T8 PO
[2020-10-28 12:58] LABS: HEMATOCRIT 42.8 % (42.0-52.0); MEAN CORPUSCULAR HGB CONC 30.4 g/dl (32.0-36.5); PLATELET COUNT, AUTOMATED 208 10^3/uL (150-450); RED BLOOD COUNT 4.81 10^6/uL (4.30-6.10); WHITE BLOOD COUNT 7.8 10^3/uL (4.0-10.0)
[2020-10-28 15:31] LABS: ALBUMIN 3.9 GM/DL (3.2-5.2); ALT/SGPT 35 U/L (12-78); BILIRUBIN,TOTAL 0.6 MG/DL (0.2-1.0); BLOOD UREA NITROGEN 23 MG/DL (7-18); CALCIUM LEVEL 9.2 MG/DL (8.8-10.2); CARBON DIOXIDE LEVEL 32 MEQ/L (21-32); CHLORIDE LEVEL 105 MEQ/L (98-107); CHOLESTEROL LEVEL 139 MG/DL (<200); CHOLESTEROL RISK RATIO 5.148 (<5); CREATININE FOR GFR 1.18 MG/DL (0.70-1.30); GLOMERULAR FILTRATION RATE > 60.0 (>42); GLUCOSE, FASTING 102 MG/DL (70-100); HDL CHOLESTEROL 27 MG/DL (>40); LDL CHOLESTEROL 75 MG/DL (<100); NON-HDL-C 112 MG/DL; POTASSIUM SERUM 4.5 MEQ/L (3.5-5.1); SODIUM LEVEL 142 MEQ/L (136-145); TOTAL PROTEIN 6.9 GM/DL (6.4-8.2); TRIGLYCERIDES LEVEL 185 MG/DL (<150)
== END ==
LOC: M SFHCADAM 11:14
PROVIDERS: ATTEND Physician Assistant
DX: I50.22 Chronic systolic (congestive) heart failure (principal); N18.30 Chronic kidney disease, stage 3 unspecified; I87.2 Venous insufficiency (chronic) (peripheral); I25.10 Atherosclerotic heart disease of native coronary artery without angina pectoris
CPT/HCPCS: 80053; 80061; 85027; G0463

== ENCOUNTER → 2020-12-25 | Outpatient (CLI) | payer MEDICARE ==
--- NOTE | 2020-12-25 10:58 | REP ---
INDICATION: ISCHIORECTAL ABSCESS, PELVIC / PERINEAL PAIN. COMPARISON: 07/08/2020 TECHNIQUE: Axial noncontrast images through the pelvis with coronal and sagittal reformations. FINDINGS: Inflammatory stranding within the left hemipelvis extending inferiorly to the ischiorectal fossa and left perirectal region where a somewhat ill-defined collection measures roughly 6.9 x 3.7 cm maximal AP and transverse diameter by approximately 7 cm in maximal craniocaudal length. No associated gas identified within the collection. The rectum and rectosigmoid appear otherwise essentially normal. Remainder of the visualized pelvis is without further acute process. Colonic diverticula noted without acute diverticulitis. Bladder and residual prostate gland appear normal. No ascites. IMPRESSION: Left perirectal infectious/inflammatory process with phlegmon and possible forming abscess. <Electronically signed by Marshall Hatch > 12/25/20 [id number]
== END ==
LOC: M RAD 10:24
PROVIDERS: ATTEND Surgery
DX: K61.39 Other ischiorectal abscess (principal); R10.2 Pelvic and perineal pain

== ENCOUNTER → 2020-12-26 | Outpatient (CLI) | payer MEDICARE ==
--- NOTE | 2020-12-26 09:47 | REP ---
INDICATION: RIGHT KNEE PAIN. COMPARISON: None. TECHNIQUE: AP, lateral, tunnel and sunrise views of the right knee. FINDINGS: Essentially age-related osteopenia and tricompartmental osteoarthritic degenerative changes are appreciated. Findings include subchondral sclerosis, joint space narrowing, and marginal spurring. No acute fracture or dislocation. Evidence for peripheral vascular disease noted. No obvious effusion. 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 <Electronically signed by Marshall Htach > 12/26/20 [id number]
== END ==
LOC: M SOG 09:00
PROVIDERS: ATTEND Orthopaedic Surgery Sports Medicine
DX: M17.11 Unilateral primary osteoarthritis, right knee (principal)

== ENCOUNTER → 2021-06-25 | Outpatient (REF) | payer MEDICARE ==
[~2021-06-25] MED LIST changes: -CLIN150C15 PO; +CLIN150C17 PO
[2021-06-25 17:28] LABS: BLOOD UREA NITROGEN 28 MG/DL (7-18); CALCIUM LEVEL 8.6 MG/DL (8.8-10.2); CARBON DIOXIDE LEVEL 31 MEQ/L (21-32); CHLORIDE LEVEL 108 MEQ/L (98-107); CREATININE FOR GFR 1.17 MG/DL (0.70-1.30); GLOMERULAR FILTRATION RATE > 60.0 (>42); GLUCOSE, FASTING 103 MG/DL (70-100); POTASSIUM SERUM 4.9 MEQ/L (3.5-5.1); SODIUM LEVEL 143 MEQ/L (136-145)
== END ==
LOC: M SFHCADAM 15:48
PROVIDERS: ATTEND Physician Assistant
DX: I10 Essential (primary) hypertension (principal)
CPT/HCPCS: 80048; G0463

== ENCOUNTER 2022-11-19 00:23 | Emergency (ER) | payer MEDICARE ==
[~2022-11-19] VITALS: Ht 180.3 cm; Wt 118.2 kg
[~2022-11-19 00:23] MED LIST changes: -D31000TA2 PO; +LOSA100T45 PO; -LOSA100T50 PO; +LOSA50TA28 PO; -LOSA50TA88 PO; +VITA100093 PO
[2022-11-19] MEDS ORDERED: traMADol 50 MG TAB (HOME DOSE PACK) PO ONE (02:00)
[2022-11-19 02:21] VITALS: BP 143/63
== END 2022-11-19 02:26 | disposition home or self-care (01) ==
LOC: M ED 00:23
DX: K62.89 Other specified diseases of anus and rectum (principal); I10 Essential (primary) hypertension; K21.9 Gastro-esophageal reflux disease without esophagitis; F10.10 Alcohol abuse, uncomplicated; Z86.79 Personal history of other diseases of the circulatory system; Z87.891 Personal history of nicotine dependence; Z79.2 Long term (current) use of antibiotics; Z79.810 Long term (current) use of selective estrogen receptor modulators (SERMs); Z79.811 Long term (current) use of aromatase inhibitors; Z79.899 Other long term (current) drug therapy

== ENCOUNTER 2022-11-22 04:05 | Inpatient (IN) | payer MEDICARE ==
[~2022-11-22] VITALS: Ht 180.3 cm; Wt 123.0 kg
[2022-11-22] MEDS ORDERED: LIDOCAINE 4% TOPICAL SOLN 50 ML BTL TOP ONE (07:50)
[2022-11-22] MEDS ORDERED: LIDOCAINE 2% 5ML JELLY UROJET TOP ONE (07:55)
[2022-11-22 08:15] LABS: BASO # 0.1 10^3/uL (0.0-0.2); BASO % 0.2 % (0.0-1.0); HEMATOCRIT 36.8 % (42.0-52.0); HEMOGLOBIN 11.8 g/dl (13.5-17.5); LYMPH # 0.4 10^3/uL (1.5-5.0); LYMPH % 1.4 % (24.0-44.0); MEAN CORPUSCULAR HEMOGLOBIN 27.8 pg (27.0-33.0); MEAN CORPUSCULAR HGB CONC 32.1 g/dl (32.0-36.5); MEAN CORPUSCULAR VOLUME 86.8 fl (80.0-96.0); MONO % 8.4 % (2.0-8.0); NEUTROPHILS # 25.4 10^3/uL (1.5-8.5); NEUTROPHILS % 88.9 % (36.0-66.0); PLATELET COUNT, AUTOMATED 323 10^3/uL (150-450); RED BLOOD COUNT 4.24 10^6/uL (4.30-6.10); WHITE BLOOD COUNT 28.6 10^3/uL (4.0-10.0)
[2022-11-22 08:45] LABS: ALBUMIN 3.2 G/DL (3.2-5.2); BILIRUBIN,TOTAL 0.6 MG/DL (0.3-1.2); CREATININE FOR GFR 2.07 MG/DL (0.70-1.30); GLOMERULAR FILTRATION RATE 33.1 (>35); TOTAL PROTEIN 6.1 G/DL (5.7-8.2)
[2022-11-22 08:50] LABS: MONO # 2.4 10^3/uL (0.0-0.8)
[2022-11-22] MEDS: GASTROGRAFIN SOLUTION 30ML PO SCH ×2 (09:04→09:52)
[2022-11-22] MEDS: LIDOCAINE 5% OINT 30GM TUBE TOP SCH (09:04)
[2022-11-22] MEDS ORDERED: PIPERACILLIN/TAZOBACTAM SOD 3.375 GM in D5W MINI-BAG PLUS 50 ML IV ONE (09:15)
[2022-11-22] MEDS ORDERED: NS 1,000 ML IV ONE (09:15)
[2022-11-22] MEDS ORDERED: LIDOCAINE 1% MDV 20ML VIAL IM ONE (12:15)
[2022-11-22] MEDS ORDERED: MORPHINE 4 MG/ML 1ML VIAL IV ONE (13:35)
[2022-11-22] MEDS ORDERED: PATIENT COMMENT (13:43)
[2022-11-22] MEDS ORDERED: LOSA100T45 PO (13:43)
[2022-11-22] MEDS ORDERED: HOME MED LIST COMPLETE! XX SCH (13:45)
[2022-11-22] MEDS ORDERED: NS 1,000 ML IV SCH (14:10)
[2022-11-22 15:11] LABS: RSV AMPLIFICATION NEGATIVE (NEGATIVE)
[2022-11-22 16:01] VITALS: BP 133/60
[2022-11-22] MEDS: PIPERACILLIN/TAZOBACTAM SOD 3.375 GM in D5W MINI-BAG PLUS 50 ML IV SCH ×2 (16:16→22:45)
[2022-11-22] MEDS: FOLIC ACID 1MG TAB PO SCH (16:17)
[2022-11-22] MEDS: ASPIRIN 325 MG TAB PO SCH (16:17)
[2022-11-22] MEDS: FINASTERIDE 5MG TAB PO SCH (16:17)
[2022-11-22] MEDS: DIGOXIN 0.125 MG TAB PO SCH (16:17)
[2022-11-22] MEDS: FERROUS SULFATE 325MG TAB PO SCH (16:17)
[2022-11-22] MEDS: atenoloL 25 MG TAB PO SCH (16:18)
[2022-11-22] MEDS: VITAMIN D 1,000 INTERNATIONAL UNITS TABLET PO SCH (16:18)
[2022-11-22] MEDS: CLINDAMYCIN 900 MG in IV 1 EA IV SCH (18:39)
[2022-11-22] MEDS: MULTIVITAMINS/MINERALS THERAP 1 TAB PO SCH (18:39)
[2022-11-22] MEDS ORDERED: REMDESIVIR 200 MG in NS 250 ML IV ONE (20:00)
[2022-11-22] MEDS: OMEPRAZOLE 20MG CAP PO SCH (20:28)
[2022-11-22] MEDS ORDERED: SODIUM CHLORIDE 0.9% INJ 10 ML SYR IV ONE (21:00)
[2022-11-22 22:00] VITALS: BP 132/59
[2022-11-22] MEDS: HEPARIN SOD (PORCINE) 5000UNITS/ML 1ML VIAL/SYRINGE SQ SCH (22:45)
[2022-11-23] MEDS: CLINDAMYCIN 900 MG in IV 1 EA IV SCH ×3 (00:30→15:47)
[2022-11-23] MEDS: PIPERACILLIN/TAZOBACTAM SOD 3.375 GM in D5W MINI-BAG PLUS 50 ML IV SCH ×4 (04:37→22:09)
[2022-11-23 05:56] LABS: HEMOGLOBIN 10.5 g/dl (13.5-17.5); MEAN CORPUSCULAR HEMOGLOBIN 27.2 pg (27.0-33.0); MEAN CORPUSCULAR HGB CONC 30.9 g/dl (32.0-36.5); MEAN CORPUSCULAR VOLUME 88.1 fl (80.0-96.0); PLATELET COUNT, AUTOMATED 269 10^3/uL (150-450); RED BLOOD COUNT 3.86 10^6/uL (4.30-6.10); WHITE BLOOD COUNT 16.1 10^3/uL (4.0-10.0)
[2022-11-23 06:00] VITALS: BP 125/59
[2022-11-23 06:26] LABS: ALBUMIN 2.8 G/DL (3.2-5.2); BILIRUBIN,TOTAL 0.3 MG/DL (0.3-1.2); CALCIUM LEVEL 8.5 MG/DL (8.3-10.6); CREATININE FOR GFR 2.23 MG/DL (0.70-1.30); GLOMERULAR FILTRATION RATE 30.3 (>35); POTASSIUM SERUM 4.9 MMOL/L (3.5-5.1); TOTAL PROTEIN 5.8 G/DL (5.7-8.2)
[2022-11-23] MEDS: HEPARIN SOD (PORCINE) 5000UNITS/ML 1ML VIAL/SYRINGE SQ SCH ×3 (06:37→22:09)
[2022-11-23] MEDS: LIDOCAINE 5% OINT 30GM TUBE TOP SCH (09:00)
[2022-11-23] MEDS: MULTIVITAMINS/MINERALS THERAP 1 TAB PO SCH (09:12)
[2022-11-23] MEDS: FINASTERIDE 5MG TAB PO SCH (09:12)
[2022-11-23] MEDS: OMEPRAZOLE 20MG CAP PO SCH ×2 (09:12→22:08)
[2022-11-23] MEDS: VITAMIN D 1,000 INTERNATIONAL UNITS TABLET PO SCH (09:13)
[2022-11-23] MEDS: FERROUS SULFATE 325MG TAB PO SCH (09:13)
[2022-11-23] MEDS: FOLIC ACID 1MG TAB PO SCH (09:13)
[2022-11-23] MEDS: atenoloL 25 MG TAB PO SCH (09:13)
[2022-11-23] MEDS: ASPIRIN 325 MG TAB PO SCH (09:13)
[2022-11-23] MEDS: DIGOXIN 0.125 MG TAB PO SCH (09:14)
[2022-11-23] MEDS ORDERED: ACETAMINOPHEN TAB 650MG DOSE (2X325MG) PO PRN (12:30)
[2022-11-23] MEDS: PERCOCET 5MG/325MG TAB PO PRN ×2 (12:46→22:50)
[2022-11-23 15:00] VITALS: BP 156/60
[2022-11-23] MEDS: NS 1,000 ML IV SCH (18:56)
[2022-11-23 21:45] VITALS: BP 118/48
[2022-11-23] MEDS ORDERED: MIRALAX *UNIT DOSE* 17GM PACKET PO PRN (21:45)
[2022-11-23] MEDS: SENOKOT S TAB PO SCH (22:08)
[2022-11-24] MEDS: CLINDAMYCIN 900 MG in IV 1 EA IV SCH ×2 (00:02→06:02)
[2022-11-24] MEDS: REMDESIVIR 100 MG in NS 250 ML IV SCH ×2 (02:07→20:34)
[2022-11-24] MEDS: SODIUM CHLORIDE 0.9% INJ 10 ML SYR IV SCH ×2 (02:08→22:44)
[2022-11-24] MEDS: PIPERACILLIN/TAZOBACTAM SOD 3.375 GM in D5W MINI-BAG PLUS 50 ML IV SCH ×4 (05:16→22:45)
[2022-11-24 05:19] VITALS: BP 152/78
[2022-11-24] MEDS ORDERED: IPRATROPIUM 0.5MG/ALBUTEROL 2.5MG INH SOL UD 3ML (DUONEB) NEB PRN (05:25)
[2022-11-24] MEDS ORDERED: FLUTICASONE PROP 0.05% NASAL SPRAY 16 GM (FLONASE) NARES PRN (05:25)
[2022-11-24] MEDS ORDERED: guaiFENesin SYRUP 200MG 10ML UDC PO PRN (05:25)
[2022-11-24 05:50] LABS: HEMATOCRIT 36.2 % (42.0-52.0); HEMOGLOBIN 10.7 g/dl (13.5-17.5); MEAN CORPUSCULAR HGB CONC 29.6 g/dl (32.0-36.5); MEAN CORPUSCULAR VOLUME 91.2 fl (80.0-96.0); PLATELET COUNT, AUTOMATED 281 10^3/uL (150-450); RED BLOOD COUNT 3.97 10^6/uL (4.30-6.10); WHITE BLOOD COUNT 12.1 10^3/uL (4.0-10.0)
[2022-11-24] MEDS: HEPARIN SOD (PORCINE) 5000UNITS/ML 1ML VIAL/SYRINGE SQ SCH ×3 (06:02→22:45)
[2022-11-24 06:31] LABS: ALBUMIN 2.7 G/DL (3.2-5.2); BILIRUBIN,TOTAL 0.4 MG/DL (0.3-1.2); CALCIUM LEVEL 7.9 MG/DL (8.3-10.6); CREATININE FOR GFR 1.93 MG/DL (0.70-1.30); GLOMERULAR FILTRATION RATE 35.8 (>35); POTASSIUM SERUM 5.2 MMOL/L (3.5-5.1)
[2022-11-24] MEDS: NS 1,000 ML IV SCH ×2 (07:15→15:08)
[2022-11-24] MEDS: FOLIC ACID 1MG TAB PO SCH (08:17)
[2022-11-24] MEDS: VITAMIN D 1,000 INTERNATIONAL UNITS TABLET PO SCH (08:17)
[2022-11-24] MEDS: ASPIRIN 325 MG TAB PO SCH (08:17)
[2022-11-24] MEDS: MULTIVITAMINS/MINERALS THERAP 1 TAB PO SCH (08:17)
[2022-11-24] MEDS: FERROUS SULFATE 325MG TAB PO SCH (08:17)
[2022-11-24] MEDS: SENOKOT S TAB PO SCH (08:18)
[2022-11-24] MEDS: OMEPRAZOLE 20MG CAP PO SCH ×2 (08:18→20:35)
[2022-11-24] MEDS: FINASTERIDE 5MG TAB PO SCH (08:18)
[2022-11-24] MEDS: DIGOXIN 0.125 MG TAB PO SCH (08:18)
[2022-11-24] MEDS: LIDOCAINE 5% OINT 30GM TUBE TOP SCH (08:19)
[2022-11-24] MEDS: atenoloL 25 MG TAB PO SCH (08:19)
[2022-11-24] MEDS ORDERED: ALBUTEROL 90 MCG/ACT 8GM HFA INHALER INH PRN (11:05)
[2022-11-24] MEDS ORDERED: LACTULOSE 20GM/30ML SYRUP UDC PO ONE (11:15)
[2022-11-24] MEDS: methylPREDNISolone 125MG 2ML VIAL IV SCH ×2 (11:26→20:35)
[2022-11-24] MEDS: DOCUSATE SODIUM 100MG CAPSULE PO SCH ×2 (11:26→20:35)
[2022-11-24] MEDS: PERCOCET 5MG/325MG TAB PO PRN ×2 (11:27→21:01)
[2022-11-24] MEDS: COMBIVENT RESPIMAT 100-20MCG INHALER 4GM INH SCH ×3 (12:01→20:54)
[2022-11-24 14:00] VITALS: BP 136/68
[2022-11-24 20:31] VITALS: BP 133/55
[2022-11-24] MEDS: RAMELTEON 8 MG TAB (ROZEREM) PO PRN (20:35)
[2022-11-24] MEDS: SENNA 8.6 MG TAB (SENOKOT) PO SCH (20:35)
[2022-11-25] MEDS: methylPREDNISolone 125MG 2ML VIAL IV SCH ×3 (04:29→20:28)
[2022-11-25] MEDS: PIPERACILLIN/TAZOBACTAM SOD 3.375 GM in D5W MINI-BAG PLUS 50 ML IV SCH ×4 (04:29→21:47)
[2022-11-25] MEDS: HEPARIN SOD (PORCINE) 5000UNITS/ML 1ML VIAL/SYRINGE SQ SCH ×3 (05:46→21:47)
[2022-11-25 05:47] VITALS: BP 123/58
[2022-11-25 05:57] LABS: HEMOGLOBIN 10.8 g/dl (13.5-17.5); MEAN CORPUSCULAR HEMOGLOBIN 27.2 pg (27.0-33.0); MEAN CORPUSCULAR HGB CONC 29.2 g/dl (32.0-36.5); MEAN CORPUSCULAR VOLUME 93.2 fl (80.0-96.0); PLATELET COUNT, AUTOMATED 283 10^3/uL (150-450); RED BLOOD COUNT 3.97 10^6/uL (4.30-6.10); WHITE BLOOD COUNT 15.4 10^3/uL (4.0-10.0)
[2022-11-25 06:56] LABS: ALBUMIN 2.8 G/DL (3.2-5.2); BILIRUBIN,TOTAL 0.3 MG/DL (0.3-1.2); CALCIUM LEVEL 8.7 MG/DL (8.3-10.6); CREATININE FOR GFR 1.71 MG/DL (0.70-1.30); GLOMERULAR FILTRATION RATE 41.2 (>35); POTASSIUM SERUM 6.3 MMOL/L (3.5-5.1); TOTAL PROTEIN 5.9 G/DL (5.7-8.2)
[2022-11-25] MEDS ORDERED: DEXTROSE 50% 50ML SYRINGE IV STA (07:12)
[2022-11-25] MEDS ORDERED: HumuLIN R (REGULAR) INSULIN (NovoLIN R) **100U/ML** PER UNIT IV STA (07:12)
[2022-11-25] MEDS ORDERED: NS 0.45% 1,000 ML IV SCH (07:15)
[2022-11-25] MEDS: COMBIVENT RESPIMAT 100-20MCG INHALER 4GM INH SCH ×4 (08:09→19:47)
[2022-11-25] MEDS: LIDOCAINE 5% OINT 30GM TUBE TOP SCH (09:00)
[2022-11-25] MEDS: FERROUS SULFATE 325MG TAB PO SCH (09:25)
[2022-11-25] MEDS: MULTIVITAMINS/MINERALS THERAP 1 TAB PO SCH (09:25)
[2022-11-25] MEDS: ASPIRIN 325 MG TAB PO SCH (09:25)
[2022-11-25] MEDS: DOCUSATE SODIUM 100MG CAPSULE PO SCH ×2 (09:25→20:29)
[2022-11-25] MEDS: OMEPRAZOLE 20MG CAP PO SCH ×2 (09:25→20:29)
[2022-11-25] MEDS: FINASTERIDE 5MG TAB PO SCH (09:25)
[2022-11-25] MEDS: VITAMIN D 1,000 INTERNATIONAL UNITS TABLET PO SCH (09:25)
[2022-11-25] MEDS: FOLIC ACID 1MG TAB PO SCH (09:25)
[2022-11-25] MEDS: DIGOXIN 0.125 MG TAB PO SCH (09:25)
[2022-11-25] MEDS: atenoloL 25 MG TAB PO SCH (09:26)
[2022-11-25 09:39] LABS: ALBUMIN 2.8 G/DL (3.2-5.2); BILIRUBIN,TOTAL 0.3 MG/DL (0.3-1.2); CALCIUM LEVEL 8.8 MG/DL (8.3-10.6); CREATININE FOR GFR 1.66 MG/DL (0.70-1.30); GLOMERULAR FILTRATION RATE 42.6 (>35); TOTAL PROTEIN 5.8 G/DL (5.7-8.2)
[2022-11-25] MEDS ORDERED: PATIROMER SORBITEX CALCIUM 8.4 GM POWDER PACKET (VELTASSA) PO ONE (11:00)
[2022-11-25] MEDS ORDERED: FUROSEMIDE 100MG/10ML VIAL IV ONE (12:00)
[2022-11-25] MEDS: DOXYCYCLINE HYCLATE 100MG TABLET PO SCH ×2 (12:54→20:29)
[2022-11-25 14:00] VITALS: BP 135/63
[2022-11-25 19:42] LABS: CALCIUM LEVEL 8.8 MG/DL (8.3-10.6); CREATININE FOR GFR 1.78 MG/DL (0.70-1.30); GLOMERULAR FILTRATION RATE 39.3 (>35); POTASSIUM SERUM 5.8 MMOL/L (3.5-5.1)
[2022-11-25] MEDS: RAMELTEON 8 MG TAB (ROZEREM) PO PRN (20:29)
[2022-11-25] MEDS: SENNA 8.6 MG TAB (SENOKOT) PO SCH (20:29)
[2022-11-25] MEDS: REMDESIVIR 100 MG in NS 250 ML IV SCH (20:29)
[2022-11-25] MEDS: PERCOCET 5MG/325MG TAB PO PRN (20:30)
[2022-11-25 20:37] VITALS: BP 127/50
[2022-11-25] MEDS: SODIUM CHLORIDE 0.9% INJ 10 ML SYR IV SCH (21:46)
[2022-11-26] MEDS: PIPERACILLIN/TAZOBACTAM SOD 3.375 GM in D5W MINI-BAG PLUS 50 ML IV SCH (04:20)
[2022-11-26] MEDS: methylPREDNISolone 125MG 2ML VIAL IV SCH ×3 (04:20→20:24)
[2022-11-26] MEDS: HEPARIN SOD (PORCINE) 5000UNITS/ML 1ML VIAL/SYRINGE SQ SCH ×2 (05:55→13:25)
[2022-11-26 06:00] VITALS: BP 123/52
[2022-11-26 06:01] LABS: HEMATOCRIT 37.9 % (42.0-52.0); HEMOGLOBIN 11.1 g/dl (13.5-17.5); MEAN CORPUSCULAR HEMOGLOBIN 27.2 pg (27.0-33.0); MEAN CORPUSCULAR HGB CONC 29.3 g/dl (32.0-36.5); MEAN CORPUSCULAR VOLUME 92.9 fl (80.0-96.0); PLATELET COUNT, AUTOMATED 280 10^3/uL (150-450); RED BLOOD COUNT 4.08 10^6/uL (4.30-6.10); WHITE BLOOD COUNT 19.1 10^3/uL (4.0-10.0)
[2022-11-26 07:07] LABS: ALBUMIN 2.8 G/DL (3.2-5.2); BILIRUBIN,TOTAL 0.3 MG/DL (0.3-1.2); CALCIUM LEVEL 8.8 MG/DL (8.3-10.6); CREATININE FOR GFR 1.82 MG/DL (0.70-1.30); GLOMERULAR FILTRATION RATE 38.4 (>35); POTASSIUM SERUM 6.1 MMOL/L (3.5-5.1); TOTAL PROTEIN 5.9 G/DL (5.7-8.2)
[2022-11-26] MEDS: COMBIVENT RESPIMAT 100-20MCG INHALER 4GM INH SCH ×4 (08:13→19:44)
[2022-11-26] MEDS: FINASTERIDE 5MG TAB PO SCH (08:58)
[2022-11-26] MEDS: LIDOCAINE 5% OINT 30GM TUBE TOP SCH (08:58)
[2022-11-26] MEDS: DOXYCYCLINE HYCLATE 100MG TABLET PO SCH ×2 (08:58→20:25)
[2022-11-26] MEDS: DOCUSATE SODIUM 100MG CAPSULE PO SCH ×2 (08:58→20:25)
[2022-11-26] MEDS: OMEPRAZOLE 20MG CAP PO SCH ×2 (08:58→20:25)
[2022-11-26] MEDS: VITAMIN D 1,000 INTERNATIONAL UNITS TABLET PO SCH (08:58)
[2022-11-26] MEDS: MULTIVITAMINS/MINERALS THERAP 1 TAB PO SCH (08:59)
[2022-11-26] MEDS: ASPIRIN 325 MG TAB PO SCH (08:59)
[2022-11-26] MEDS: FERROUS SULFATE 325MG TAB PO SCH (08:59)
[2022-11-26] MEDS: FOLIC ACID 1MG TAB PO SCH (08:59)
[2022-11-26] MEDS: DIGOXIN 0.125 MG TAB PO SCH (08:59)
[2022-11-26] MEDS: atenoloL 50 MG TAB PO SCH (08:59)
[2022-11-26] MEDS ORDERED: PATIROMER SORBITEX CALCIUM 8.4 GM POWDER PACKET (VELTASSA) PO ONE ×2 (09:00→16:00)
[2022-11-26] MEDS ORDERED: PIPERACILLIN/TAZOBACTAM SOD 4.5 GM in D5W MINI-BAG PLUS 50 ML IV SCH (10:00)
[2022-11-26] MEDS ORDERED: SODIUM CHLORIDE 0.9% 1000ML IV ONE (11:10)
[2022-11-26] MEDS ORDERED: FUROSEMIDE 100MG/10ML VIAL IV ONE (13:00)
[2022-11-26] MEDS ORDERED: metOLazone 2.5 MG TAB PO ONE (13:00)
[2022-11-26 14:00] VITALS: BP 166/68
[2022-11-26] MEDS: cefTRIAXone SOD 2 GM in D5W MINI-BAG PLUS 50 ML IV SCH (15:57)
[2022-11-26 16:10] LABS: ALBUMIN 2.9 G/DL (3.2-5.2); BILIRUBIN,TOTAL 0.3 MG/DL (0.3-1.2); CALCIUM LEVEL 8.8 MG/DL (8.3-10.6); CREATININE FOR GFR 1.57 MG/DL (0.70-1.30); GLOMERULAR FILTRATION RATE 45.5 (>35); POTASSIUM SERUM 5.6 MMOL/L (3.5-5.1); TOTAL PROTEIN 6.2 G/DL (5.7-8.2)
[2022-11-26 20:00] VITALS: BP 161/87
[2022-11-26] MEDS: RAMELTEON 8 MG TAB (ROZEREM) PO PRN (20:25)
[2022-11-26] MEDS: SENNA 8.6 MG TAB (SENOKOT) PO SCH (20:25)
[2022-11-26] MEDS: REMDESIVIR 100 MG in NS 250 ML IV SCH (20:25)
[2022-11-26] MEDS: SODIUM CHLORIDE 0.9% INJ 10 ML SYR IV SCH (20:27)
[2022-11-26] MEDS: LORazepam 0.5 MG TAB PO PRN (23:59)
[2022-11-27] MEDS: methylPREDNISolone 125MG 2ML VIAL IV SCH ×2 (04:29→16:31)
[2022-11-27] MEDS: PERCOCET 5MG/325MG TAB PO PRN ×3 (05:48→14:38)
[2022-11-27 06:00] VITALS: BP 168/80
[2022-11-27 06:15] LABS: HEMATOCRIT 38.4 % (42.0-52.0); HEMOGLOBIN 11.6 g/dl (13.5-17.5); MEAN CORPUSCULAR HEMOGLOBIN 27.2 pg (27.0-33.0); MEAN CORPUSCULAR HGB CONC 30.2 g/dl (32.0-36.5); MEAN CORPUSCULAR VOLUME 90.1 fl (80.0-96.0); PLATELET COUNT, AUTOMATED 276 10^3/uL (150-450); RED BLOOD COUNT 4.26 10^6/uL (4.30-6.10); WHITE BLOOD COUNT 18.1 10^3/uL (4.0-10.0)
[2022-11-27 06:39] LABS: ALBUMIN 3.1 G/DL (3.2-5.2); BILIRUBIN,TOTAL 0.2 MG/DL (0.3-1.2); CALCIUM LEVEL 8.6 MG/DL (8.3-10.6); CREATININE FOR GFR 1.59 MG/DL (0.70-1.30); GLOMERULAR FILTRATION RATE 44.8 (>35); POTASSIUM SERUM 5.6 MMOL/L (3.5-5.1); TOTAL PROTEIN 6.1 G/DL (5.7-8.2)
[2022-11-27] MEDS: COMBIVENT RESPIMAT 100-20MCG INHALER 4GM INH SCH ×4 (07:55→19:49)
[2022-11-27] MEDS: atenoloL 50 MG TAB PO SCH (09:00)
[2022-11-27] MEDS: FINASTERIDE 5MG TAB PO SCH (09:01)
[2022-11-27] MEDS: VITAMIN D 1,000 INTERNATIONAL UNITS TABLET PO SCH (09:01)
[2022-11-27] MEDS: DOXYCYCLINE HYCLATE 100MG TABLET PO SCH ×2 (09:01→20:52)
[2022-11-27] MEDS: ASPIRIN 325 MG TAB PO SCH (09:01)
[2022-11-27] MEDS: OMEPRAZOLE 20MG CAP PO SCH ×2 (09:01→20:52)
[2022-11-27] MEDS: FERROUS SULFATE 325MG TAB PO SCH (09:01)
[2022-11-27] MEDS: FOLIC ACID 1MG TAB PO SCH (09:01)
[2022-11-27] MEDS: DOCUSATE SODIUM 100MG CAPSULE PO SCH ×2 (09:01→20:53)
[2022-11-27] MEDS: DIGOXIN 0.125 MG TAB PO SCH (09:55)
[2022-11-27] MEDS: LORazepam 0.5 MG TAB PO PRN (09:58)
[2022-11-27] MEDS ORDERED: FUROSEMIDE 100MG/10ML VIAL IV ONE (12:10)
[2022-11-27 14:00] VITALS: BP 174/80
[2022-11-27] MEDS ORDERED: PATIROMER SORBITEX CALCIUM 8.4 GM POWDER PACKET (VELTASSA) PO ONE (14:00)
[2022-11-27] MEDS: cefTRIAXone SOD 2 GM in D5W MINI-BAG PLUS 50 ML IV SCH (16:31)
[2022-11-27 20:00] VITALS: BP 168/79
[2022-11-27] MEDS: SENNA 8.6 MG TAB (SENOKOT) PO SCH (20:52)
[2022-11-27] MEDS: RAMELTEON 8 MG TAB (ROZEREM) PO PRN (20:52)
[2022-11-28] MEDS: methylPREDNISolone 125MG 2ML VIAL IV SCH (04:31)
[2022-11-28] MEDS: PERCOCET 5MG/325MG TAB PO PRN ×2 (04:32→14:46)
[2022-11-28 06:00] VITALS: BP 174/81
[2022-11-28 06:02] LABS: HEMATOCRIT 39.4 % (42.0-52.0); HEMOGLOBIN 11.9 g/dl (13.5-17.5); MEAN CORPUSCULAR HEMOGLOBIN 26.8 pg (27.0-33.0); MEAN CORPUSCULAR HGB CONC 30.2 g/dl (32.0-36.5); MEAN CORPUSCULAR VOLUME 88.7 fl (80.0-96.0); PLATELET COUNT, AUTOMATED 263 10^3/uL (150-450); RED BLOOD COUNT 4.44 10^6/uL (4.30-6.10); WHITE BLOOD COUNT 18.2 10^3/uL (4.0-10.0)
[2022-11-28 06:09] LABS: ALBUMIN 3.2 G/DL (3.2-5.2); BILIRUBIN,TOTAL 0.3 MG/DL (0.3-1.2); CALCIUM LEVEL 8.3 MG/DL (8.3-10.6); CREATININE FOR GFR 1.51 MG/DL (0.70-1.30); GLOMERULAR FILTRATION RATE 47.6 (>35); POTASSIUM SERUM 5.3 MMOL/L (3.5-5.1); TOTAL PROTEIN 6.3 G/DL (5.7-8.2)
[2022-11-28] MEDS: COMBIVENT RESPIMAT 100-20MCG INHALER 4GM INH SCH ×4 (08:42→19:41)
[2022-11-28] MEDS: FERROUS SULFATE 325MG TAB PO SCH (09:20)
[2022-11-28] MEDS: DOXYCYCLINE HYCLATE 100MG TABLET PO SCH ×2 (09:20→21:07)
[2022-11-28] MEDS: ASPIRIN 325 MG TAB PO SCH (09:20)
[2022-11-28] MEDS: FOLIC ACID 1MG TAB PO SCH (09:20)
[2022-11-28] MEDS: OMEPRAZOLE 20MG CAP PO SCH ×2 (09:20→21:07)
[2022-11-28] MEDS: DOCUSATE SODIUM 100MG CAPSULE PO SCH ×2 (09:20→21:07)
[2022-11-28] MEDS: VITAMIN D 1,000 INTERNATIONAL UNITS TABLET PO SCH (09:20)
[2022-11-28] MEDS: atenoloL 25 MG TAB PO SCH (09:21)
[2022-11-28] MEDS: DIGOXIN 0.125 MG TAB PO SCH (09:21)
[2022-11-28] MEDS: FINASTERIDE 5MG TAB PO SCH (09:21)
[2022-11-28] MEDS ORDERED: FUROSEMIDE 100MG/10ML VIAL IV ONE (12:00)
[2022-11-28 14:00] VITALS: BP 153/68
[2022-11-28] MEDS: cefTRIAXone SOD 2 GM in D5W MINI-BAG PLUS 50 ML IV SCH (16:27)
[2022-11-28 20:00] VITALS: BP 156/73
[2022-11-28] MEDS: SENNA 8.6 MG TAB (SENOKOT) PO SCH (21:07)
[2022-11-29] MEDS: LORazepam 0.5 MG TAB PO PRN (02:31)
[2022-11-29 06:01] VITALS: BP 170/64
[2022-11-29 06:47] LABS: HEMATOCRIT 43.7 % (42.0-52.0); HEMOGLOBIN 13.5 g/dl (13.5-17.5); MEAN CORPUSCULAR HEMOGLOBIN 27.2 pg (27.0-33.0); MEAN CORPUSCULAR HGB CONC 30.9 g/dl (32.0-36.5); MEAN CORPUSCULAR VOLUME 88.1 fl (80.0-96.0); PLATELET COUNT, AUTOMATED 241 10^3/uL (150-450); RED BLOOD COUNT 4.96 10^6/uL (4.30-6.10); WHITE BLOOD COUNT 18.3 10^3/uL (4.0-10.0)
[2022-11-29 06:57] LABS: ERYTHROCYTE SEDIMENTATION RATE 64 mm/hr (0-20)
[2022-11-29 07:18] LABS: C REACTIVE PROTEIN QUANTITATIV 1.1 MG/DL (<1.0)
[2022-11-29 07:22] LABS: ALBUMIN 3.5 G/DL (3.2-5.2); BILIRUBIN,TOTAL 0.3 MG/DL (0.3-1.2); CALCIUM LEVEL 8.3 MG/DL (8.3-10.6); CREATININE FOR GFR 1.64 MG/DL (0.70-1.30); GLOMERULAR FILTRATION RATE 43.2 (>35); POTASSIUM SERUM 4.6 MMOL/L (3.5-5.1); TOTAL PROTEIN 6.5 G/DL (5.7-8.2)
[2022-11-29] MEDS: COMBIVENT RESPIMAT 100-20MCG INHALER 4GM INH SCH ×2 (08:04→11:29)
[2022-11-29] MEDS: VITAMIN D 1,000 INTERNATIONAL UNITS TABLET PO SCH (08:53)
[2022-11-29] MEDS: ASPIRIN 325 MG TAB PO SCH (08:53)
[2022-11-29] MEDS: DOXYCYCLINE HYCLATE 100MG TABLET PO SCH (08:53)
[2022-11-29] MEDS: FERROUS SULFATE 325MG TAB PO SCH (08:53)
[2022-11-29] MEDS: OMEPRAZOLE 20MG CAP PO SCH (08:53)
[2022-11-29] MEDS: FINASTERIDE 5MG TAB PO SCH (08:53)
[2022-11-29] MEDS: FOLIC ACID 1MG TAB PO SCH (08:53)
[2022-11-29] MEDS: DIGOXIN 0.125 MG TAB PO SCH (08:55)
[2022-11-29 08:56] VITALS: BP 152/64
[2022-11-29] MEDS: PERCOCET 5MG/325MG TAB PO PRN (08:56)
[2022-11-29] MEDS: atenoloL 25 MG TAB PO SCH (08:56)
[2022-11-29] MEDS ORDERED: predniSONE 20 MG TAB PO SCH (09:00)
[2022-11-29] MEDS: DOCUSATE SODIUM 100MG CAPSULE PO SCH (09:26)
[2022-11-29] MEDS ORDERED: PRED20TA PO (10:18)
[2022-11-29] MEDS ORDERED: VENTAER INH (10:18)
[2022-11-29] MEDS ORDERED: CEFU50TA PO (10:18)
[2022-11-29] MEDS ORDERED: ATEN50TA2 PO (10:18)
[2022-11-29] MEDS ORDERED: ACET1TAB55 PO (10:18)
[2022-11-29] MEDS ORDERED: SENN18TA PO (10:18)
[2022-11-29] MEDS ORDERED: COLA100C5 PO (10:18)
[2022-11-29] MEDS ORDERED: PROB250C PO (10:18)
[2022-11-29] MEDS ORDERED: DOXY-444 PO (10:20)
[2022-11-29] MEDS ORDERED: MUCI600T31 PO (10:20)
[2022-11-29] MEDS ORDERED: AMLO1TAB24 PO (10:20)
== END 2022-11-29 12:38 | disposition home or self-care (01) | DRG 871 ==
LOC: M ED 04:05 → M ED INP 14:03 → ENRESERV 14:31 → M MSPAV 15:54
PROVIDERS: ADMIT Internal Medicine; ATTEND Internal Medicine
DX: A41.9 Sepsis, unspecified organism (principal); J96.01 Acute respiratory failure with hypoxia; J15.9 Unspecified bacterial pneumonia; U07.1 COVID-19; I50.33 Acute on chronic diastolic (congestive) heart failure; K61.1 Rectal abscess; J44.1 Chronic obstructive pulmonary disease with (acute) exacerbation; N17.9 Acute kidney failure, unspecified; I13.0 Hypertensive heart and chronic kidney disease with heart failure and stage 1 through stage 4 chronic kidney disease, or unspecified chronic kidney disease; K21.9 Gastro-esophageal reflux disease without esophagitis; E11.9 Type 2 diabetes mellitus without complications; I48.91 Unspecified atrial fibrillation; K59.00 Constipation, unspecified; N18.30 Chronic kidney disease, stage 3 unspecified; G47.33 Obstructive sleep apnea (adult) (pediatric); Z91.119 Patient's noncompliance with dietary regimen due to unspecified reason; N40.0 Benign prostatic hyperplasia without lower urinary tract symptoms; I25.10 Atherosclerotic heart disease of native coronary artery without angina pectoris; Z95.1 Presence of aortocoronary bypass graft; R00.1 Bradycardia, unspecified; E87.5 Hyperkalemia; N28.1 Cyst of kidney, acquired; Z79.82 Long term (current) use of aspirin; Z79.899 Other long term (current) drug therapy

== ENCOUNTER → 2022-12-07 | Outpatient (REF) | payer MEDICARE ==
[~2022-12-07] MED LIST changes: +ACET1TAB55 PO; +AMLO1TAB24 PO; +CEFU50TA PO; +COLA100C5 PO; +DOXY-444 PO; +MUCI600T31 PO; +PATIENT COMMENT; +PRED20TA PO; +PROB250C PO; +SENN18TA PO; +VENTAER INH
[2022-12-07 17:27] LABS: BLOOD UREA NITROGEN 38 MG/DL (9-23); CALCIUM LEVEL 8.2 MG/DL (8.3-10.6); CARBON DIOXIDE LEVEL 26 MMOL/L (20-31); CHLORIDE LEVEL 108 MMOL/L (98-107); GLUCOSE, FASTING 114 MG/DL (74-106); POTASSIUM SERUM 4.6 MMOL/L (3.5-5.1); SODIUM LEVEL 142 MMOL/L (136-145)
[2022-12-07 20:39] LABS: CREATININE FOR GFR 1.21 MG/DL (0.70-1.30); GLOMERULAR FILTRATION RATE > 60.0 (>35)
== END ==
LOC: M SFHCADAM 14:22
PROVIDERS: ATTEND Family Medicine
DX: E87.5 Hyperkalemia (principal)

== ENCOUNTER → 2023-03-17 | Outpatient (REF) | payer OTHER ==
[~2023-03-17] MED LIST changes: -LOSA100T45 PO; +LOSA100T46 PO
== END ==
LOC: M SFHCADAM 17:02
PROVIDERS: ATTEND Physician Assistant
DX: Z53.9 Procedure and treatment not carried out, unspecified reason (principal)

== ENCOUNTER → 2023-03-18 | Outpatient (REF) | payer OTHER ==
[2023-03-18 13:17] LABS: BASO % 0.3 % (0.0-1.0); EOS # 0.1 10^3/uL (0.0-0.5); EOS % 1.7 % (0.0-3.0); HEMATOCRIT 40.5 % (42.0-52.0); HEMOGLOBIN 11.8 g/dl (13.5-17.5); LYMPH # 0.9 10^3/uL (1.5-5.0); LYMPH % 12.2 % (24.0-44.0); MEAN CORPUSCULAR HEMOGLOBIN 24.2 pg (27.0-33.0); MEAN CORPUSCULAR HGB CONC 29.1 g/dl (32.0-36.5); MEAN CORPUSCULAR VOLUME 83.2 fl (80.0-96.0); MONO # 0.6 10^3/uL (0.0-0.8); MONO % 8.2 % (2.0-8.0); NEUTROPHILS # 5.4 10^3/uL (1.5-8.5); NEUTROPHILS % 77.2 % (36.0-66.0); PLATELET COUNT, AUTOMATED 251 10^3/uL (150-450); RED BLOOD COUNT 4.87 10^6/uL (4.30-6.10)
[2023-03-18 13:45] LABS: ALBUMIN 3.8 G/DL (3.2-5.2); BILIRUBIN,TOTAL 0.5 MG/DL (0.3-1.2); CALCIUM LEVEL 8.1 MG/DL (8.3-10.6); CHOLESTEROL RISK RATIO 5.18 (<5); CREATININE FOR GFR 1.44 MG/DL (0.70-1.30); GLOMERULAR FILTRATION RATE 50.2 (>35); HDL CHOLESTEROL 22.2 MG/DL (>40); LDL CHOLESTEROL 63.4 MG/DL (<100); MAGNESIUM LEVEL 1.8 MG/DL (1.8-2.4); NON-HDL-C 92.8 MG/DL; POTASSIUM SERUM 4.4 MMOL/L (3.5-5.1); TOTAL PROTEIN 6.3 G/DL (5.7-8.2)
== END ==
LOC: M SFHCADAM 10:39
PROVIDERS: ATTEND Physician Assistant
DX: R09.02 Hypoxemia (principal); I87.2 Venous insufficiency (chronic) (peripheral); I11.0 Hypertensive heart disease with heart failure

== ENCOUNTER → 2023-05-16 | Outpatient (REF) | payer OTHER ==
[~2023-05-16] MED LIST changes: +SENN-111 PO; -SENN18TA PO
[2023-05-16 14:14] LABS: CALCIUM LEVEL 8.7 MG/DL (8.3-10.6); CREATININE FOR GFR 1.34 MG/DL (0.70-1.30); GLOMERULAR FILTRATION RATE 54.6 (>35); POTASSIUM SERUM 4.2 MMOL/L (3.5-5.1)
== END ==
LOC: M SFHCADAM 08:49
PROVIDERS: ATTEND Physician Assistant
DX: I87.2 Venous insufficiency (chronic) (peripheral) (principal); I50.31 Acute diastolic (congestive) heart failure; I11.0 Hypertensive heart disease with heart failure

== ENCOUNTER → 2024-08-17 | Outpatient (REF) | payer OTHER ==
[~2024-08-17] MED LIST changes: +DIPH1TAB80 PO; -DIPH2.5T14 PO; +DOXY-440 PO; -DOXY-444 PO; -SENN-111 PO; +SENN-165 PO
[2024-08-17 17:20] LABS: BASO % 0.4 % (0.0-1.0); EOS # 0.1 10^3/uL (0.0-0.5); EOS % 1.5 % (0.0-3.0); HEMATOCRIT 39.2 % (42.0-52.0); HEMOGLOBIN 12.2 g/dl (13.5-17.5); LYMPH # 0.7 10^3/uL (1.5-5.0); LYMPH % 10.8 % (24.0-44.0); MEAN CORPUSCULAR HEMOGLOBIN 26.1 pg (27.0-33.0); MEAN CORPUSCULAR HGB CONC 31.1 g/dl (32.0-36.5); MEAN CORPUSCULAR VOLUME 83.9 fl (80.0-96.0); MONO # 0.6 10^3/uL (0.0-0.8); MONO % 8.1 % (2.0-8.0); NEUTROPHILS # 5.3 10^3/uL (1.5-8.5); NEUTROPHILS % 77.9 % (36.0-66.0); PLATELET COUNT, AUTOMATED 234 10^3/uL (150-450); RED BLOOD COUNT 4.67 10^6/uL (4.30-6.10); WHITE BLOOD COUNT 6.8 10^3/uL (4.0-10.0)
[2024-08-17 17:28] LABS: ALBUMIN 3.8 G/DL (3.2-5.2); ALKALINE PHOSPHATASE 181 U/L (40-129); ALT/SGPT 23 U/L (7.0-40); AST/SGOT 11 U/L (<34); BILIRUBIN,TOTAL 0.3 MG/DL (0.3-1.2); BLOOD UREA NITROGEN 34 MG/DL (9-23); CALCIUM LEVEL 9.4 MG/DL (8.3-10.6); CARBON DIOXIDE LEVEL 27 MMOL/L (20-31); CHLORIDE LEVEL 110 MMOL/L (98-107); CREATININE FOR GFR 1.22 MG/DL (0.70-1.30); FERRITIN 16.9 NG/ML (10.5-307.3); FOLATE > 24.0 NG/ML (>5.4); GLOMERULAR FILTRATION RATE > 60.0 (>35); GLUCOSE, FASTING 121 MG/DL (74-106); IRON (FE) 36 UG/DL (65-175); MAGNESIUM LEVEL 1.8 MG/DL (1.8-2.4); POTASSIUM SERUM 4.3 MMOL/L (3.5-5.1); SODIUM LEVEL 145 MMOL/L (136-145); TOTAL 25(OH) VITAMIN D 36.8 NG/ML (20.0-100.0); TOTAL IRON BINDING CAPACITY 328 UG/DL (250-425); TOTAL PROTEIN 6.8 G/DL (5.7-8.2)
[2024-08-17 17:30] LABS: FREE T4 1.11 NG/DL (0.89-1.76)
[2024-08-17 17:31] LABS: VITAMIN B12 LEVEL 950 PG/ML (211-911)
[2024-08-17 17:34] LABS: THYROID STIMULATING HORMONE 3.642 uIU/ML (0.55-4.78)
== END ==
LOC: M SFHCADAM 13:50
PROVIDERS: ATTEND Physician Assistant
DX: I12.9 Hypertensive chronic kidney disease with stage 1 through stage 4 chronic kidney disease, or unspecified chronic kidney disease (principal); N18.31 Chronic kidney disease, stage 3a; I48.91 Unspecified atrial fibrillation; G47.33 Obstructive sleep apnea (adult) (pediatric); I87.2 Venous insufficiency (chronic) (peripheral); Z28.21 Immunization not carried out because of patient refusal

== ENCOUNTER → 2025-06-21 | Outpatient (REF) | payer MEDICARE ==
[2025-06-21 17:47] LABS: BASO # 0.0 10^3/uL (0.0-0.2); BASO % 0.2 % (0.0-1.0); EOS # 0.2 10^3/uL (0.0-0.5); EOS % 1.0 % (0.0-3.0); LYMPH # 0.7 10^3/uL (1.5-5.0); LYMPH % 5.0 % (24.0-44.0); MONO # 1.0 10^3/uL (0.0-0.8); MONO % 7.0 % (2.0-8.0); NEUTROPHILS # 12.8 10^3/uL (1.5-8.5); NEUTROPHILS % 86.3 % (36.0-66.0); PLATELET COUNT, AUTOMATED 242 10^3/uL (150-450)
[2025-06-21 17:52] LABS: ALT/SGPT 32 U/L (7.0-40); AST/SGOT 55 U/L (<34); CALCIUM LEVEL 9.0 MG/DL (8.3-10.6); CARBON DIOXIDE LEVEL 28 MMOL/L (20-31); CHLORIDE LEVEL 107 MMOL/L (98-107); CHOLESTEROL LEVEL 116 MG/DL (<200); CHOLESTEROL RISK RATIO 5.11 (<5); CREATININE FOR GFR 1.62 MG/DL (0.70-1.30); GLOMERULAR FILTRATION RATE 42.1 (>35); IRON (FE) 41 UG/DL (65-175); LDL CHOLESTEROL 59.1 MG/DL (<100); NON-HDL-C 93.3 MG/DL; PERCENT SATURATION 13.4 % (19.7-50.0); POTASSIUM SERUM 4.5 MMOL/L (3.5-5.1); SODIUM LEVEL 146 MMOL/L (136-145); TRIGLYCERIDES LEVEL 171 MG/DL (<150)
[2025-06-21 17:54] LABS: FREE T4 1.02 NG/DL (0.89-1.76); VITAMIN B12 LEVEL 286 PG/ML (211-911)
[2025-06-21 18:45] LABS: ESTIMATED AVERAGE GLUCOSE 97.0 MG/DL (60-110)
== END ==
LOC: M SFHCADAM 14:44
PROVIDERS: ATTEND Physician Assistant
DX: N18.31 Chronic kidney disease, stage 3a (principal); I48.91 Unspecified atrial fibrillation; G47.33 Obstructive sleep apnea (adult) (pediatric); N40.0 Benign prostatic hyperplasia without lower urinary tract symptoms; D50.9 Iron deficiency anemia, unspecified; E66.01 Morbid (severe) obesity due to excess calories; I50.32 Chronic diastolic (congestive) heart failure; E53.8 Deficiency of other specified B group vitamins; L71.9 Rosacea, unspecified